=== PATIENT | female | born 1945 | race Caucasian/White ===

== ENCOUNTER → 2017-01-17 | Outpatient (CLI) | payer MEDICARE ==
--- NOTE | 2017-01-18 12:54 | MM ---
Reason for exam: screening (asymptomatic). Last mammogram was performed 3 years and 1 month ago. History: Patient is postmenopausal. Physical Findings: A clinical breast exam by your physician is recommended on an annual basis and results should be correlated with mammographic findings. MG Screening Mammo w CAD Bilateral CC and MLO view(s) were taken. XCCL view(s) were taken of the left breast. Prior study comparison: December 13, 2013, mammogram, performed at [facility]. April 27, 2011, mammogram, performed at [facility]. March 26, 2010, mammogram, performed at [facility]. There are scattered fibroglandular densities. Finding: There are typically benign round calcifications in both breasts. There is no discrete abnormality. ASSESSMENT: Benign, BI-RAD 2 RECOMMENDATION: Routine screening mammogram of both breasts in 1 year.
== END | disposition home or self-care (01) ==
LOC: RADMAMWWP 13:32
PROVIDERS: ATTEND Family Medicine
DX: Z12.31 Encounter for screening mammogram for malignant neoplasm of breast (principal)

== ENCOUNTER → 2017-02-07 | Outpatient (CLI) | payer MEDICARE ==
--- NOTE | 2017-02-07 14:45 | US ---
EXAMINATION TYPE: US kidneys/renal and bladder DATE OF EXAM: 02/07/2017 COMPARISON: CT CLINICAL HISTORY: N28.9 Renal Impairment. EXAM MEASUREMENTS: Right Kidney: 10.8 x 5.2 x 5.1 cm Left Kidney: 10.5 x 5.5 x 5.0 cm Right Kidney: Multiple cysts, largest measuring 3.7 x 2.7 x 3.3cm Left Kidney: Multiple cysts, largest measuring 2.0 x 2.1 x 2.2cm Bladder: wnl Right jet seen, left not visualized. There is no evidence for hydronephrosis at this point in time. No nephrolithiasis is seen. Multiple simple appearing cysts are noted bilaterally. No solid masses seen. The urinary bladder is anechoic. Bilateral ureteral jets are seen. IMPRESSION: Multiple simple appearing cysts are noted bilaterally.
== END | disposition home or self-care (01) ==
LOC: RADUSWWP 14:02
PROVIDERS: ATTEND Family Medicine
DX: N28.1 Cyst of kidney, acquired (principal)
CPT/HCPCS: 76770

== ENCOUNTER 2018-05-12 20:48 | Observation (INO) | payer MEDICARE ==
[2018-05-12] MEDS ORDERED: ONDANSETRON 4 MG/2 ML VIAL IVP STA ×2 (21:19→21:52)
[2018-05-12] MEDS ORDERED: SODIUM CHLORIDE 0.9% 500 ML 500 ML IV STA (21:52)
--- NOTE | 2018-05-12 21:56 | ED ---
Nausea/Vomiting/Diarrhea HPI - General Chief complaint: Nausea/Vomiting/Diarrhea Stated complaint: Nausea,Vomiting, Diarrhea Time Seen by Provider: 05/12/18 21:18 Source: patient Mode of arrival: EMS Limitations: no limitations - History of Present Illness Initial comments: This patient is a 72-year-old woman who presents to be evaluated for nausea vomiting and diarrhea. Patient states she was in her usual state of health until approximately 3 PM and she started feeling nauseated and a bit after this she began having vomiting. She believes she has had probably over 10 episodes of vomiting. she also then started having watery bowel movements and believes she has had probably Tylenol as well. She has not noted any blood. The patient was not having any abdominal pains. She has felt chills but no fever. She denies other symptoms. She states she has had this in number times in the past was told she had a stomach flu. MD complaint: nausea, vomiting, diarrhea Onset/Timin -: hour(s) Description of Vomiting: watery Description of Diarrhea: water Associated Abdominal Pain: No Improves with: none Worsens with: none Associated Symptoms: denies other symptoms - Related Data Previous Rx's Medication Instructions Recorded Diazepam [Valium] 5 mg PO TID #10 tab 08/12/14 Meclizine [Antivert] 25 mg PO BID #10 tab 08/12/14 Allergies Allergy/AdvReac Type Severity Reaction Status Date / Time tetracycline Allergy Unknown Verified 08/12/14 01:13 Review of Systems ROS Statement: Those systems with pertinent positive or pertinent negative responses have been documented in the HPI. ROS Other: All systems not noted in ROS Statement are negative. Constitutional: Reports: chills. Denies: fever Respiratory: Denies: cough, dyspnea Cardiovascular: Denies: chest pain, palpitations, syncope Gastrointestinal: Reports: nausea, vomiting, diarrhea. Denies: abdominal pain, constipation, hematemesis, melena, hematochezia Genitourinary: Denies: dysuria Musculoskeletal: Denies: back pain Skin: Denies: rash Neurological: Denies: headache, weakness, numbness Psychiatric: Reports: anxiety Past Medical History Past Medical History: Hypertension, Thyroid Disorder History of Any Multi-Drug Resistant Organisms: None Reported Past Surgical History: Hysterectomy Past Psychological History: Depression Smoking Status: Current every day smoker Past Alcohol Use History: None Reported Past Drug Use History: None Reported General Exam Limitations: no limitations General appearance: alert, in no apparent distress, obese Head exam: Present: atraumatic, normocephalic Eye exam: Present: normal appearance. Absent: scleral icterus, conjunctival injection ENT exam: Present: normal oropharynx Neck exam: Present: normal inspection Respiratory exam: Present: normal lung sounds bilaterally. Absent: respiratory distress, wheezes, rales, rhonchi, stridor Cardiovascular Exam: Present: regular rate, normal rhythm, normal heart sounds. Absent: systolic murmur, diastolic murmur, rubs, gallop GI/Abdominal exam: Present: soft. Absent: distended, tenderness, guarding, rebound, rigid, mass Extremities exam: Present: normal inspection, normal capillary refill. Absent: pedal edema, calf tenderness Back exam: Present: normal inspection. Absent: CVA tenderness (R), CVA tenderness (L) Neurological exam: Present: alert Skin exam: Present: warm, dry, intact, normal color. Absent: rash Course Vital Signs 05/12/18 05/12/18 05/12/18 20:54 20:55 21:00 Temperature 98.6 F Pulse Rate 98 Respiratory 18 Rate Blood Pressure 125/91 125/91 O2 Sat by Pulse 96 99 Oximetry 05/12/18 05/12/18 05/12/18 21:10 21:30 21:40 Temperature Pulse Rate 110 H Respiratory Rate Blood Pressure 130/94 130/87 141/101 O2 Sat by Pulse 96 Oximetry 05/12/18 05/12/18 05/12/18 22:00 22:10 22:20 Temperature Pulse Rate 106 H 104 H 104 H Respiratory Rate Blood Pressure 120/74 125/70 90/51 O2 Sat by Pulse 100 97 96 Oximetry 05/12/18 05/12/18 05/12/18 22:40 22:50 23:10 Temperature Pulse Rate 118 H 112 H 103 H Respiratory 15 Rate Blood Pressure 100/87 111/94 137/73 O2 Sat by Pulse Oximetry Medical Decision Making - Medical Decision Making On reevaluation, the patient again has no abdominal tenderness whatsoever. - Lab Data Result diagrams: 05/12/18 22:20 05/12/18 22:20 Lab Results 05/12/18 05/12/18 05/12/18 Range/Units 22:20 22:20 22:30 WBC 17.2 H (3.8-10.6) k/uL RBC 5.35 (3.80-5.40) m/uL Hgb 16.4 H (11.4-16.0) gm/dL Hct 52.7 H (34.0-46.0) % MCV 98.4 (80.0-100.0) fL MCH 30.7 (25.0-35.0) pg MCHC 31.2 (31.0-37.0) g/dL RDW 13.4 (11.5-15.5) % Plt Count 394 (150-450) k/uL Neutrophils % (Manual) 78 % Band Neutrophils % 12 % Lymphocytes % (Manual) 8 % Monocytes % (Manual) 3 % Neutrophils # (Manual) 15.40 H (1.3-7.7) k/uL Lymphocytes # (Manual) 1.38 (1.0-4.8) k/uL Monocytes # (Manual) 0.52 (0-1.0) k/uL Nucleated RBCs 0 (0-0) /100 WBC Manual Slide Review Performed Sodium 141 (137-145) mmol/L Potassium 4.3 (3.5-5.1) mmol/L Chloride 112 H (98-107) mmol/L Carbon Dioxide 18 L (22-30) mmol/L Anion Gap 11 mmol/L BUN 32 H (7-17) mg/dL Creatinine 1.49 H (0.52-1.04) mg/dL Est GFR (CKD-EPI)AfAm 41 (>60 ml/min/1.73 sqM) Est GFR (CKD-EPI)NonAf 35 (>60 ml/min/1.73 sqM) Glucose 176 H (74-99) mg/dL Calcium 10.1 (8.4-10.2) mg/dL Total Bilirubin 0.5 (0.2-1.3) mg/dL AST 46 H (14-36) U/L ALT 37 (9-52) U/L Alkaline Phosphatase 42 (38-126) U/L Total Protein 6.7 (6.3-8.2) g/dL Albumin 4.1 (3.5-5.0) g/dL Amylase 73 (30-110) U/L Lipase 139 (23-300) U/L C. difficile (EIA) Intrp Negative (Negative) Disposition Clinical Impression: Intractable vomiting with nausea Disposition: ADMITTED IP TO THIS HOSP Condition: Fair Is patient prescribed a controlled substance at d/c from ED?: No Referrals: Joe Solorzano DO [Primary Care Provider] - 1-2 days
[2018-05-12 22:28] LABS: HCT 52.7 % (34.0-46.0); HGB 16.4 gm/dL (11.4-16.0); MCH 30.7 pg (25.0-35.0); MCHC 31.2 g/dL (31.0-37.0); MCV 98.4 fL (80.0-100.0); Mean Platelet Volume 7.4; Platelet Count 394 k/uL (150-450); RBC 5.35 m/uL (3.80-5.40); RDW 13.4 % (11.5-15.5); WBC 17.2 k/uL (3.8-10.6)
[2018-05-12 22:47] LABS: Albumin 4.1 g/dL (3.5-5.0); Band Neutrophils % 12 %; Calcium 10.1 mg/dL (8.4-10.2); Lymphocytes # (M) 1.38 k/uL (1.0-4.8); Monocytes # (M) 0.52 k/uL (0-1.0); Neutrophils % (M) 78 %; Nucleated Red Blood Cells 0 /100 WBC (0-0); Potassium 4.3 mmol/L (3.5-5.1); Total Bilirubin 0.5 mg/dL (0.2-1.3); Total Cells Counted 200; Total Protein 6.7 g/dL (6.3-8.2)
[2018-05-12] MEDS ORDERED: PROMETHAZINE INJ 25 MG in SODIUM CHLORIDE 0.9% 50 ML IVPB STA (23:08)
[2018-05-13] MEDS ORDERED: NALOXONE 0.4 MG/ML 1 ML VIAL IV PRN (00:37)
[2018-05-13] MEDS ORDERED: ONDANSETRON 4 MG/2 ML VIAL IVP PRN (00:37)
[2018-05-13] MEDS ORDERED: SODIUM CHLORIDE 0.9% 500 ML 500 ML IV ONE (00:52)
[2018-05-13] MEDS: SODIUM CHLORIDE 0.9% 1,000 ML IV SCH ×2 (01:45→08:38)
[2018-05-13] MEDS: HEPARIN SOD,PORK IN 0.45% NACL 25,000 UNIT in 0.45% NACL 1 250ML.BAG IV SCH ×3 (03:49→22:40)
[2018-05-13] MEDS: FAMOTIDINE 20 MG TAB PO SCH ×2 (08:37→21:23)
[2018-05-13] MEDS ORDERED: MECLIZINE 25 MG TAB PO SCH (09:00)
--- NOTE | 2018-05-13 10:36 | CONS ---
CONSULTATION This is a 72-year-old female. She has been admitted with history of diarrhea, vomiting and she has chills but no fever. During the stay in the hospital, noticed some discomfort in the left leg. The patient was started on heparin. MEDICAL HISTORY: History of hypertension, thyroid disorder. No history of diabetes. SOCIAL HISTORY: Patient has a long-standing history of smoking. Quit smoking about a few months ago. The patient has history of depression. PHYSICAL EXAMINATION: Patient was seen in her room. She was lying comfortably in bed. NECK: Supple. No bruit appreciated. CHEST: Clear to auscultation. ABDOMEN: Soft. No peritoneal signs noted. Patient has liquid diarrhea. Vascular examination: Brachial and radial pulses are present. Femorals are 1+ bilateral. Patient has a posterior tibial dorsalis pedis by the Doppler. No ischemic ulcer noted. IMPRESSION: Chronic vascular disease. At this point, patient is on heparin and she has a bilateral Doppler signal. PLAN: Patient will be managed for nausea and vomiting. At this point, no role of surgical intervention. We will continue with heparin, then patient will need a workup for vascular evaluation which is then chronic. Follow with you. Thank you very much for the consultation. MMODL / IJN: [id number] /
[2018-05-13] MEDS ORDERED: ALPRAZolam 0.5 MG TAB PO PRN (11:33)
[2018-05-13] MEDS ORDERED: NON-FORMULARY DRUG (Vitamin B Complex [Vitamin B Complex] 1 CAP) PO SCH (11:45)
[2018-05-13] MEDS ORDERED: NON-FORMULARY DRUG (Calcium/Magnesium/Zinc [Calcium-Magnesium-Zinc Tablet] 1 TAB) PO SCH (11:45)
[2018-05-13] MEDS: LEVOTHYROXINE 100 MCG TAB PO SCH (13:03)
[2018-05-13] MEDS: amLODIPine 5 MG TAB PO SCH (13:04)
[2018-05-13] MEDS: FENOFIBRATE 160 MG TAB PO SCH (13:04)
[2018-05-13] MEDS: LISINOPRIL 20 MG TAB PO SCH (13:04)
[2018-05-13] MEDS ORDERED: MELATONIN 3 MG TABLET PO PRN (16:37)
[2018-05-13] MEDS ORDERED: ACETAMINOPHEN TAB 325 MG TAB PO PRN (16:37)
[2018-05-13] MEDS ORDERED: CALCIUM CARBONATE 500 MG CHEWABLE PO PRN (16:37)
[2018-05-13] MEDS: buPROPion XL 150 MG TAB.ER.24H PO SCH (16:48)
[2018-05-13] MEDS: LOPERAMIDE 2 MG CAP PO SCH ×2 (16:48→21:23)
[2018-05-13] MEDS: CIPROFLOXACIN HCL 250 MG TAB PO SCH ×2 (16:55→21:23)
[2018-05-13] MEDS: LACTATED RINGERS 1,000 ML IV SCH ×2 (16:56→22:41)
[2018-05-13] MEDS: SODIUM BICARBONATE TAB 650 MG TAB PO SCH ×2 (16:56→21:23)
[2018-05-13] MEDS: metroNIDAZOLE 500 MG TAB PO SCH ×2 (16:56→21:23)
--- NOTE | 2018-05-13 21:15 | HP ---
HISTORY AND PHYSICAL DATE OF ADMISSION: 05/13/2018 DATE OF SERVICE: 05/13/2018 PRESENT COMPLAINT: Nausea, vomiting diarrhea. HISTORY OF PRESENTING COMPLAINT: Pleasant 72-year-old patient of Dr. Solorzano. Chronic stable medical conditions include hypertension, hypothyroid, depression, anxiety, hypertriglyceridemia. The patient is in the process of moving in with her son. The patient went in for dinner the day before to [employer] and next day went out for breakfast and started off with multiple episodes of nausea, vomiting, diarrhea, and perspiring, drenched and decided to come in today. When I saw this patient this afternoon the patient was still having diarrhea and had about 10 or 12 bouts of diarrhea, very watery, flaky, some abdominal discomfort. The patient has had some chills, but no obvious fever. Admitted for the same. Was put on IV fluids. Earlier today patient's left like became cold. I put the patient on IV heparin and consulted Dr. Donaldson from vascular surgery. The patient does complain of left leg cramping when she exerts herself. Patient was a smoker up to 3 months ago. REVIEW OF SYSTEMS: CONSTITUTIONAL: Chills, weak, tired. HEENT: None. RESPIRATORY: None. CARDIOVASCULAR: None. GASTROINTESTINAL: As above. GENITOURINARY: None. MUSCULOSKELETAL: Arthritic pain in the joints. DERMATOLOGICAL, HEMATOLOGIC, LYMPHATICS: none. PSYCHIATRY: None. NEUROLOGICAL: None. PAST MEDICAL HISTORY: Hypertension, hypothyroid, hypertriglyceridemia, depression, anxiety, leg cramps, osteoarthritis. PAST SURGICAL HISTORY: Hysterectomy. SOCIAL HISTORY: Patient smoking a pack a day up until 3 months ago for a long time. No alcohol. Patient is a . FAMILY HISTORY: Coronary artery disease. HOME MEDICATIONS: 1. Vitamin B complex 1 capsule p.o. daily. 2. Zestril 20 mg p.o. daily. 3. Tricor 160 mg a day. 4. Calcium, magnesium, zinc tablet 1 tab daily. 5. Wellbutrin XL 150 mg a day. 6. Amlodipine 5 mg a day. 7. Vitamin D3 2000 units p.o. daily. 8. Xanax 0.5 p.o. q.h.s. p.r.n. 9. Synthroid 100 mcg p.o. daily. ALLERGIES: TETRACYCLINE AZITHROMYCIN. PHYSICAL EXAMINATION: Vital signs on presentation: Temperature 98.6, pulse 106, respirations 16, blood pressure 120/74, Pulse ox 100% on room air. GENERAL APPEARANCE: Average build, BMI 35.5, lying in bed, tired-appearing. EYES: Pupils equal. Conjunctivae normal. HEENT: External appearance of nose and ears normal. Oral cavity normal. NECK: JVD not raised. Mass not palpable. Respiratory effort normal. Lungs are clear. CARDIOVASCULAR: First and second sounds normal. No edema. ABDOMEN: Soft, minimal tenderness. Liver and spleen not palpable. LYMPHATICS: No lymph node palpable in neck or axilla. PSYCHIATRY: Alert and oriented x3. Mood and affect normal. NEUROLOGICAL: Pupils equal. Cranial nerves grossly intact. Power and sensation grossly intact. EXTREMITIES: Left foot is warm. Decreased dorsalis pedis. INVESTIGATIONS: White count 17.2, hemoglobin 16.4 potassium 4.3, bicarb 18, BUN 32, creatinine 1.49. C diff is negative. ASSESSMENT: 1. Acute gastroenteritis, food poisoning, possibly bacterial. The patient had chills, elevated white count and profuse diarrhea, nausea, vomiting. Hence, we will empirically treat with antibacterial. 2. Acute renal failure. Patient's creatinine is 1.49. The patient has underlying chronic kidney disease. The patient's creatinine was 1.25 back in April of 2016. 3. Essential hypertension. 4. Hypothyroid. 5. Depression, not otherwise specified. 6. Intermittent claudication. 7. Hypertriglyceridemia. 8. Acute metabolic acidosis, could be from diarrhea. 9. Rule out left leg acute thrombosis. PLAN: Patient is put on IV heparin. Also put on IV liquids. IV fluids been changed to lactated Ringer's. We will also add bicarbonate to the same. Repeat electrolytes in the morning. Will empirically put the patient on ciprofloxacin and Flagyl. Consultation with Dr. Donaldson. from vascular surgery is done. Care was discussed in detail with the patient and son at the bedside. Questions were answered. Lovenox for DVT prophylaxis. MMODL / IJN: [id number] /
[2018-05-14] MEDS: LEVOTHYROXINE 100 MCG TAB PO SCH (06:14)
[2018-05-14 09:17] LABS: Basophils # (A) 0.1 k/uL (0-0.2); Basophils % (A) 1 %; Eosinophils # (A) 0.2 k/uL (0-0.7); Eosinophils % (A) 2 %; HCT 38.4 % (34.0-46.0); Lymphocytes # (A) 2.1 k/uL (1.0-4.8); Lymphocytes % (A) 22 %; MCH 31.4 pg (25.0-35.0); MCHC 31.7 g/dL (31.0-37.0); MCV 98.9 fL (80.0-100.0); Mean Platelet Volume 8.2; Monocytes # (A) 0.5 k/uL (0-1.0); Monocytes % (A) 5 %; Neutrophils # (A) 6.7 k/uL (1.3-7.7); Neutrophils % (A) 69 %; Platelet Count 275 k/uL (150-450); RBC 3.88 m/uL (3.80-5.40); RDW 13.5 % (11.5-15.5); WBC 9.8 k/uL (3.8-10.6)
[2018-05-14 09:21] LABS: HGB 12.2 gm/dL (11.4-16.0)
[2018-05-14 09:25] LABS: Calcium 8.6 mg/dL (8.4-10.2); Potassium 3.8 mmol/L (3.5-5.1)
[2018-05-14] MEDS ORDERED: HEPARIN SODIUM,PORCINE 5,000 UNIT/ML 1 ML VIAL IV PRN (09:25)
[2018-05-14] MEDS: SODIUM BICARBONATE TAB 650 MG TAB PO SCH ×3 (09:42→21:25)
[2018-05-14] MEDS: buPROPion XL 150 MG TAB.ER.24H PO SCH (09:43)
[2018-05-14] MEDS: metroNIDAZOLE 500 MG TAB PO SCH ×3 (09:43→21:25)
[2018-05-14] MEDS: FENOFIBRATE 160 MG TAB PO SCH (09:43)
[2018-05-14] MEDS: amLODIPine 5 MG TAB PO SCH (09:43)
[2018-05-14] MEDS: LISINOPRIL 20 MG TAB PO SCH (09:43)
[2018-05-14] MEDS: CIPROFLOXACIN HCL 250 MG TAB PO SCH ×2 (09:43→21:26)
[2018-05-14] MEDS: FAMOTIDINE 20 MG TAB PO SCH ×2 (09:43→21:26)
[2018-05-14] MEDS: LOPERAMIDE 2 MG CAP PO SCH (09:43)
--- NOTE | 2018-05-14 10:16 | PN ---
PROGRESS NOTE This is a 72-year-old pleasant female came with history of nausea, vomiting and diarrhea and the patient noted some discomfort in left lower extremity. The patient was on heparin, consulted for vascular evaluation. The patient has history of smoking in the past. No history of diabetes. The patient is doing well today. She still has diarrhea. Posterior tibial dorsalis pedis bilaterally is by the Doppler, no evidence of any ischemic changes. Most likely patient has a chronic peripheral vascular disease. PLAN: Plan is discussed. Patient goes home, then we will follow in my office in a week to chronic vascular issues. At this point the patient is stable from a vascular point of view. MMODL / IJN: [id number] /
[2018-05-14 15:49] VITALS: RESP 16
[2018-05-14] MEDS: LACTATED RINGERS 1,000 ML IV SCH (17:48)
[2018-05-14] MEDS: DIPHENOX-ATROP 2.5-0.025 MG 1 EACH TAB PO SCH ×2 (17:48→21:25)
[2018-05-14] MEDS: HEPARIN SOD,PORK IN 0.45% NACL 25,000 UNIT in 0.45% NACL 1 250ML.BAG IV SCH (19:56)
[2018-05-15] MEDS: LACTATED RINGERS 1,000 ML IV SCH (03:29)
[2018-05-15] MEDS: LEVOTHYROXINE 100 MCG TAB PO SCH (05:45)
--- NOTE | 2018-05-15 07:39 | PN ---
PROGRESS NOTE DATE OF SERVICE: 05/14/2018 PRESENTING COMPLAINT: Diarrhea. INTERVAL HISTORY: This patient with acute food poisoning, was put on antimotility agents. Diarrhea still present, though a bit better. Patient did tolerate some diet. Also on IV heparin that was now discontinued because of left leg some vascular compromise. No acute embolism. REVIEW OF SYSTEMS: Done for constitutional, cardiovascular, GI, pulmonary and findings above. CURRENT MEDICATIONS: Reviewed that include lactated Ringer's, IV heparin, Cipro, Flagyl. PHYSICAL EXAMINATION: Temperature 98.1, pulse 82, respirations 16, blood pressure 140/79, pulse ox 95% on room air. GENERAL APPEARANCE: Sitting up, comfortable, looking better. EYES: Pupils equal. Conjunctivae normal. NECK: JVD not raised. Mass not palpable. Respiratory effort normal. LUNGS: Clear. CARDIOVASCULAR: First and second sounds. No edema. ABDOMEN: Soft, nontender. Liver and spleen not palpable. PSYCHIATRY: Alert and oriented x3. Mood and affect normal. EXTREMITIES: Warm. INVESTIGATIONS: White count 9.8, hemoglobin 12.2, potassium 3.8, BUN 20, creatinine 1.13. ASSESSMENT: 1. Acute gastroenteritis, food poisoning probably, possibly bacterial, slow to respond. 2. Acute renal failure, prerenal from severe diarrhea. 3. Chronic kidney disease stage 3, probably from nephrosclerosis. 4. Essential hypertension. 5. Hypothyroid. 6. Depression, not otherwise specified. 7. Intermittent claudication. 8. Hypertriglyceridemia. 9. Acute metabolic acidosis from diarrhea. 10.Peripheral artery disease. PLAN: As discussed with Dr. Donaldson, IV heparin will be discontinued. We will change patient's Imodium to Lomotil. Continue with IV fluids. Check electrolytes in the morning. Advance to full liquid diet if tolerated. Will change to a soft bland in the morning. MMODL / IJN: [id number] /
[2018-05-15 08:46] LABS: Calcium 8.8 mg/dL (8.4-10.2); Potassium 3.6 mmol/L (3.5-5.1)
[2018-05-15] MEDS: SODIUM BICARBONATE TAB 650 MG TAB PO SCH ×2 (08:52→16:36)
[2018-05-15] MEDS: FENOFIBRATE 160 MG TAB PO SCH (08:52)
[2018-05-15] MEDS: CIPROFLOXACIN HCL 250 MG TAB PO SCH (08:52)
[2018-05-15] MEDS: metroNIDAZOLE 500 MG TAB PO SCH ×2 (08:52→16:35)
[2018-05-15] MEDS: buPROPion XL 150 MG TAB.ER.24H PO SCH (08:52)
[2018-05-15] MEDS: DIPHENOX-ATROP 2.5-0.025 MG 1 EACH TAB PO SCH ×2 (08:52→16:36)
[2018-05-15] MEDS: LISINOPRIL 20 MG TAB PO SCH (08:52)
[2018-05-15] MEDS: FAMOTIDINE 20 MG TAB PO SCH (08:53)
[2018-05-15] MEDS: amLODIPine 5 MG TAB PO SCH (08:56)
[2018-05-15] MEDS ORDERED: PSYLLIUM HUSK 100% 6 GM PACKET PO SCH (09:00)
[2018-05-15] MEDS ORDERED: ASPIRIN 81 MG PO SCH (09:00)
[2018-05-15 15:06] VITALS: BP 167/77; PULSE 73; TEMP 97.5
--- NOTE | 2018-05-16 09:27 | DS ---
DISCHARGE SUMMARY DATE OF ADMISSION: 05/13/2018 DATE OF DISCHARGE: 05/15/2018 FINAL DIAGNOSES: 1. Acute gastritis/food poisoning probably bacterial. 2. Acute renal failure prerenal from severe diarrhea, POA. 3. Essential hypertension. 4. Hypothyroid. 5. Depression, not otherwise specified. 6. Intermittent claudication. 7. Hypertriglyceridemia. 8. Acute metabolic acidosis from diarrhea. 9. Peripheral artery disease. 10.Chronic kidney disease stage II from nephrosclerosis. HOSPITAL COURSE: This patient had eaten out, presented with severe nausea, vomiting, diarrhea, also had chills. Patient was in acute renal failure. Creatinine was up to 1.49, did come down to 1.08 before discharge. Patient also left leg back became cold, did respond well to IV heparin. Seen by Dr. Donaldson. Will see the patient as an outpatient. Patient is put on aspirin and Lipitor for the same. By today, patient is doing much better. Empirically put on Flagyl and Levaquin to complete the course on now tolerating a soft diet. PHYSICAL EXAMINATION: Afebrile, pulse 73, respiration 16, blood pressure 167/77, pulse ox 96% on room air. LUNGS: Clear. CARDIOVASCULAR: First and second sounds normal. ABDOMEN: Soft, nontender. Left leg is warm. INVESTIGATIONS: BUN 10, creatinine 1.08. CONSULTATION: Dr. Donaldson from Vascular Surgery. DISCHARGE MEDICATIONS: 1. Xanax 0.5 p.o. q.h.s. p.r.n. 2. Vitamin D3 two thousand units p.o. daily. 3. Tricor 160 mg a day. 4. Synthroid 100 mcg a day. 5. Zestril 20 mg a day. 6. Vitamin B complex. 7. Amlodipine 5 mg a day. 8. Wellbutrin XL 150 mg a day. 9. Aspirin 81 mg b.i.d. 10.Lipitor 40 mg q.h.s. 11.Cipro 250 mg b.i.d., 4 tablets. 12.Imodium 82 mg q.8h p.r.n. for diarrhea. 13.Flagyl 500 mg p.o. t.i.d., 6 tablets. Discussion and discharge planning more than 35 minutes. FOLLOWUP: 1. Follow up with Dr. Solorzano in 3 days. 2. Follow up with Dr. Bang Donaldson in 1 week. DIET: Soft, bland. MMODL / IJN: [id number] /
== END 2018-05-15 18:44 | disposition home or self-care (01) ==
LOC: EC 20:48 → 4SSUR 05-13 00:47
PROVIDERS: ADMIT Hospitalist; ATTEND Hospitalist
DX: K29.00 Acute gastritis without bleeding (principal); N17.9 Acute kidney failure, unspecified; I73.9 Peripheral vascular disease, unspecified; F32.9 Major depressive disorder, single episode, unspecified; E03.9 Hypothyroidism, unspecified; E87.2 Acidosis; E78.1 Pure hyperglyceridemia; F41.9 Anxiety disorder, unspecified; I12.9 Hypertensive chronic kidney disease with stage 1 through stage 4 chronic kidney disease, or unspecified chronic kidney disease; N18.2 Chronic kidney disease, stage 2 (mild); Z90.710 Acquired absence of both cervix and uterus; Z79.890 Hormone replacement therapy; Z79.899 Other long term (current) drug therapy; Z87.891 Personal history of nicotine dependence; Z82.49 Family history of ischemic heart disease and other diseases of the circulatory system; Z88.1 Allergy status to other antibiotic agents
CPT/HCPCS: 96376; 96361; 96365; 96366 ×2; 96375; 99285; 36415; 80053; 80048 ×2; 82150; 83690; 85025 ×2; 85610; 85730 ×3; 87324; G0378 ×3; J1644 ×3; J2550; J2405

== ENCOUNTER 2021-10-12 16:44 | Inpatient (IN) | payer MEDICARE ==
[2021-10-12] MEDS ORDERED: ONDANSETRON 4 MG/2 ML VIAL IVP STA (18:57)
[2021-10-12] MEDS ORDERED: HYDROmorphone 0.5 MG/0.5 ML SYRINGE IVP STA (18:57)
--- NOTE | 2021-10-12 19:02 | ED ---
Abdominal Pain HPI - General Source: patient, family, RN notes reviewed, old records reviewed Mode of arrival: wheelchair Limitations: no limitations - History of Present Illness MD Complaint: abdominal pain Radiation: back (lower) Severity scale (1-10): 7 Consistency: constant <Keegan Cheng - Last Filed: 10/12/21 18:59> - General Source: patient, family, RN notes reviewed Limitations: no limitations <Daniel Vásquez - Last Filed: 10/12/21 21:58> - General Chief Complaint: Abdominal Pain Stated Complaint: Abd Pain Time Seen by Provider: 10/12/21 18:50 - History of Present Illness Initial Comments: 71-year-old female presents to the emergency room via wheelchair and family members. Patient complaining of abdominal pain that radiates into her lower back. Patient states that she has had a history of lower back pain and this feels similar. She does state that she has some nausea. She states she feels that she has to have a bowel movement but nothing comes out. She did have a bowel movement today that seemed normal however. She states that she has pain 7 out of 10 family states that she seems to be getting worse with the abdominal pain. No fevers. She is a previous smoker. Patient evaluated in the triage tor[facility]. (Keegan Cheng) Patient is a pleasant 76-year-old female presenting to the emergency Department with complaints of abdominal discomfort. Onset of symptoms was this morning. Symptoms have slowly progressed since that time. Patient has nausea that is bothersome however no vomiting. patient diarrhea. Discomfort is mild to moderate. Discomfort is left lower quadrant. Patient had mild discomfort left lower back once or twice previously however not since that time. Patient does have history of similar symptoms previously associated with diverticulitis. Patient also has history of pancreatitis however that does not feel similar to this. (Daniel Vásquez) - Related Data Home Medications Medication Instructions Recorded Confirmed Fenofibrate 160 mg PO HS 05/13/18 10/12/21 Levothyroxine Sodium [Synthroid] 100 mcg PO DAILY 05/13/18 10/12/21 Vitamin B Complex 1 cap PO DAILY 05/13/18 10/12/21 amLODIPine BESYLATE 5 mg PO BID 05/13/18 10/12/21 buPROPion XL [Wellbutrin XL] 150 mg PO DAILY 05/13/18 10/12/21 ALPRAZolam [Xanax] 0.125 mg PO DAILY PRN 10/12/21 10/12/21 ALPRAZolam [Xanax] 0.25 mg PO HS 10/12/21 10/12/21 Acetaminophen [Tylenol] 500 mg PO HS 10/12/21 10/12/21 Cholecalciferol [Vitamin D3 (25 50 mcg PO HS 10/12/21 10/12/21 Mcg = 1000 Iu)] Losartan Potassium 100 mg PO DAILY 10/12/21 10/12/21 Magnesium Chloride [Mag64] 64 mg PO DAILY 10/12/21 10/12/21 Metoprolol Succinate [Toprol XL] 50 mg PO DAILY 10/12/21 10/12/21 [place]-3 Fatty Acids/Fish Oil [Fish 1 cap PO HS 10/12/21 10/12/21 Oil 1,000 mg Softgel] Allergies Allergy/AdvReac Type Severity Reaction Status Date / Time tetracycline Allergy Unknown Verified 10/12/21 21:51 azithromycin AdvReac Nausea & Verified 10/12/21 21:51 Vomiting Review of Systems ROS Other: All systems not noted in ROS Statement are negative. <Keegan Cheng - Last Filed: 10/12/21 18:59> ROS Other: All systems not noted in ROS Statement are negative. Constitutional: Denies: fever, chills Eyes: Denies: eye pain ENT: Denies: ear pain Respiratory: Denies: cough, dyspnea Cardiovascular: Denies: chest pain Endocrine: Denies: fatigue Gastrointestinal: Reports: as per HPI, abdominal pain, nausea. Denies: vomiting, diarrhea Genitourinary: Denies: urgency, dysuria, hematuria Musculoskeletal: Reports: as per HPI Skin: Denies: rash Neurological: Denies: weakness <Daniel Vásquez - Last Filed: 10/12/21 21:58> ROS Statement: Those systems with pertinent positive or pertinent negative responses have been documented in the HPI. Past Medical History Past Medical History: Hypertension, Thyroid Disorder History of Any Multi-Drug Resistant Organisms: None Reported Past Surgical History: Hysterectomy Past Anesthesia/Blood Transfusion Reactions: No Reported Reaction Past Psychological History: Depression Past Alcohol Use History: None Reported Past Drug Use History: None Reported - Past Family History Father Family Medical History: Coronary Artery Disease (CAD) <Keegan Cheng - Last Filed: 10/12/21 18:59> General Exam Limitations: no limitations <Keegan Cheng - Last Filed: 10/12/21 18:59> Limitations: no limitations General appearance: alert, in no apparent distress Head exam: Present: normocephalic Eye exam: Present: normal appearance Neck exam: Present: normal inspection Respiratory exam: Present: normal lung sounds bilaterally Cardiovascular Exam: Present: regular rate, normal rhythm Expanded Peripheral pulses: 2+: Dorsalis Pedis (R), Dorsalis Pedis (L) GI/Abdominal exam: Present: soft, tenderness (Mild tenderness left lower quadrant), normal bowel sounds. Absent: distended, guarding, rebound, rigid, pulsatile mass Extremities exam: Present: normal inspection Back exam: Absent: CVA tenderness (L) Neurological exam: Present: alert Psychiatric exam: Present: normal affect, normal mood Skin exam: Present: normal color <Daniel Vásquez - Last Filed: 10/12/21 21:58> Course <Daniel Vásquez - Last Filed: 10/12/21 21:58> Vital Signs 10/12/21 10/12/21 10/12/21 18:52 19:54 20:58 Temperature 97.8 F Pulse Rate 89 77 80 Respiratory 16 24 18 Rate Blood Pressure 165/67 151/69 165/79 O2 Sat by Pulse 94 L 95 93 L Oximetry - Reevaluation(s) Reevaluation #1: 10/12/21 19:45 EKG shows sinus rhythm with rate of 81. SD 157. QRS 94. QT 364. QTC 41. Normal axis. Normal QRS. Nonspecific ST-T. 10/12/21 21:34 Patient does meet criteria for severe sepsis at 2134. Lactic acid has been ordered. Blood culture and IV antibiotics will be ordered. (Daniel Vásquez) Medical Decision Making - Lab Data Result diagrams: 10/12/21 19:15 10/12/21 19:15 - Radiology Data Radiology results: report reviewed (Computed tomography scan of abdomen and pelvis does not reveal acute abnormality) <Daniel Vásquez - Last Filed: 10/12/21 21:58> - Medical Decision Making Patient reevaluated. Patient and family updated. Case discussed in detail with practitioner Shantelle Ku, who will admit covered with Dr. Dick. (Daniel Vásquez) - Lab Data Lab Results 05/10/12/21 10/12/21 Range/Units 19:15 19:15 19:15 WBC 16.1 H (3.8-10.6) k/uL RBC 4.40 (3.80-5.40) m/uL Hgb 13.8 (11.4-16.0) gm/dL Hct 42.2 (34.0-46.0) % MCV 95.9 (80.0-100.0) fL MCH 31.4 (25.0-35.0) pg MCHC 32.7 (31.0-37.0) g/dL RDW 13.4 (11.5-15.5) % Plt Count 381 (150-450) k/uL MPV 8.3 Neutrophils % Not Reportable Neutrophils % (Manual) 77 % Band Neuts % (Manual) 16 % Lymphocytes % Not Reportable Lymphocytes % (Manual) 6 % Monocytes % Not Reportable Monocytes % (Manual) 1 % Eosinophils % Not Reportable Basophils % Not Reportable Metamyelocytes % 1 % Neutrophils # Not Reportable Neutrophils # (Manual) 14.90 H (1.3-7.7) k/uL Lymphocytes # Not Reportable Lymphocytes # (Manual) 0.97 L (1.0-4.8) k/uL Monocytes # Not Reportable Monocytes # (Manual) 0.16 (0-1.0) k/uL Eosinophils # Not Reportable Basophils # Not Reportable Metamyelocytes # (Man) 0.16 H (0) k/uL Nucleated RBCs 0 (0-0) /100 WBC Manual Slide Review Performed Toxic Granulation Present Polychromasia Present PT 10.6 (9.0-12.0) sec INR 1.0 (<1.2) APTT 22.5 (22.0-30.0) sec Sodium 131 L (137-145) mmol/L Potassium 5.0 (3.5-5.1) mmol/L Chloride 107 (98-107) mmol/L Carbon Dioxide 15 L (22-30) mmol/L Anion Gap 9 mmol/L BUN 38 H (7-17) mg/dL Creatinine 1.83 H (0.52-1.04) mg/dL Est GFR (CKD-EPI)AfAm 31 (>60 ml/min/1.73 sqM) Est GFR (CKD-EPI)NonAf 27 (>60 ml/min/1.73 sqM) Glucose 197 H (74-99) mg/dL Plasma Lactic Acid Ruperto (0.7-2.0) mmol/L Calcium 9.5 (8.4-10.2) mg/dL Total Bilirubin 0.5 (0.2-1.3) mg/dL AST 92 H (14-36) U/L ALT 57 H (4-34) U/L Alkaline Phosphatase 50 (38-126) U/L Troponin I (0.000-0.034) ng/mL Total Protein 6.5 (6.3-8.2) g/dL Albumin 3.7 (3.5-5.0) g/dL Amylase 90 (30-110) U/L Lipase 119 (23-300) U/L Urine Color Urine Appearance (Clear) Urine pH (5.0-8.0) Ur Specific [place] (1.001-1.035) Urine Protein (Negative) Urine Glucose (UA) (Negative) Urine Ketones (Negative) Urine Blood (Negative) Urine Nitrite (Negative) Urine Bilirubin (Negative) Urine Urobilinogen (<2.0) mg/dL Ur Leukocyte Esterase (Negative) Urine RBC (0-5) /hpf Urine WBC (0-5) /hpf Urine WBC Clumps (None) /hpf Ur Squamous Epith Cells (0-4) /hpf Urine Bacteria (None) /hpf Hyaline Casts (0-2) /lpf Urine Mucus (None) /hpf 10/12/21 10/12/21 10/12/21 Range/Units 19:15 19:15 19:35 WBC (3.8-10.6) k/uL RBC (3.80-5.40) m/uL Hgb (11.4-16.0) gm/dL Hct (34.0-46.0) % MCV (80.0-100.0) fL MCH (25.0-35.0) pg MCHC (31.0-37.0) g/dL RDW (11.5-15.5) % Plt Count (150-450) k/uL MPV Neutrophils % Neutrophils % (Manual) % Band Neuts % (Manual) % Lymphocytes % Lymphocytes % (Manual) % Monocytes % Monocytes % (Manual) % Eosinophils % Basophils % Metamyelocytes % % Neutrophils # Neutrophils # (Manual) (1.3-7.7) k/uL Lymphocytes # Lymphocytes # (Manual) (1.0-4.8) k/uL Monocytes # Monocytes # (Manual) (0-1.0) k/uL Eosinophils # Basophils # Metamyelocytes # (Man) (0) k/uL Nucleated RBCs (0-0) /100 WBC Manual Slide Review Toxic Granulation Polychromasia PT (9.0-12.0) sec INR (<1.2) APTT (22.0-30.0) sec Sodium (137-145) mmol/L Potassium (3.5-5.1) mmol/L Chloride (98-107) mmol/L Carbon Dioxide (22-30) mmol/L Anion Gap mmol/L BUN (7-17) mg/dL Creatinine (0.52-1.04) mg/dL Est GFR (CKD-EPI)AfAm (>60 ml/min/1.73 sqM) Est GFR (CKD-EPI)NonAf (>60 ml/min/1.73 sqM) Glucose (74-99) mg/dL Plasma Lactic Acid Ruperto 2.6 H* (0.7-2.0) mmol/L Calcium (8.4-10.2) mg/dL Total Bilirubin (0.2-1.3) mg/dL AST (14-36) U/L ALT (4-34) U/L Alkaline Phosphatase (38-126) U/L Troponin I <0.012 (0.000-0.034) ng/mL Total Protein (6.3-8.2) g/dL Albumin (3.5-5.0) g/dL Amylase (30-110) U/L Lipase (23-300) U/L Urine Color Yellow Urine Appearance Cloudy H (Clear) Urine pH 6.0 (5.0-8.0) Ur Specific [place] 1.019 (1.001-1.035) Urine Protein 3+ H (Negative) Urine Glucose (UA) 2+ H (Negative) Urine Ketones Negative (Negative) Urine Blood Moderate H (Negative) Urine Nitrite Positive H (Negative) Urine Bilirubin Negative (Negative) Urine Urobilinogen <2.0 (<2.0) mg/dL Ur Leukocyte Esterase Moderate H (Negative) Urine RBC 10 H (0-5) /hpf Urine WBC 132 H (0-5) /hpf Urine WBC Clumps Rare H (None) /hpf Ur Squamous Epith Cells 1 (0-4) /hpf Urine Bacteria Moderate H (None) /hpf Hyaline Casts 1 (0-2) /lpf Urine Mucus Rare H (None) /hpf Critical Care Time Critical Care Time: Yes Total Critical Care Time: 32 <Daniel Vásquez - Last Filed: 10/12/21 21:58> Disposition <Keegan Cheng - Last Filed: 10/12/21 18:59> Is patient prescribed a controlled substance at d/c from ED?: No Time of Disposition: 21:35 <Daniel Vásquez - Last Filed: 10/12/21 21:58> Clinical Impression: Urinary tract infection, Severe sepsis Disposition: ADMITTED IP TO THIS HOSP
[2021-10-12 19:31] LABS: HCT 42.2 % (34.0-46.0); HGB 13.8 gm/dL (11.4-16.0); MCH 31.4 pg (25.0-35.0); MCHC 32.7 g/dL (31.0-37.0); MCV 95.9 fL (80.0-100.0); Mean Platelet Volume 8.3; Platelet Count 381 k/uL (150-450); RDW 13.4 % (11.5-15.5); WBC 16.1 k/uL (3.8-10.6)
[2021-10-12 19:42] LABS: Partial Thromboplastin Time 22.5 sec (22.0-30.0); Prothrombin Time 10.6 sec (9.0-12.0)
[2021-10-12 20:23] LABS: Albumin 3.7 g/dL (3.5-5.0); Calcium 9.5 mg/dL (8.4-10.2); Total Bilirubin 0.5 mg/dL (0.2-1.3); Total Protein 6.5 g/dL (6.3-8.2)
[2021-10-12] MEDS ORDERED: SODIUM CHLORIDE 0.9% 1,000 ML IV STA ×2 (20:40→21:35)
[2021-10-12 20:49] LABS: Appearance,Urine Cloudy (Clear); Bacteria,Urine Moderate /hpf; Bilirubin,Urine Negative (Negative); Blood,Urine Moderate (Negative); Color,Urine Yellow; Glucose,Urine (UA) 2+ (Negative); Hyaline Casts,Urine 1 /lpf (0-2); Ketones,Urine Negative (Negative); Leukocyte Esterase,Urine Moderate (Negative); Mucus,Urine Rare /hpf; Nitrite,Urine Positive (Negative); Protein,Urine 3+ (Negative); RBC,Urine 10 /hpf (0-5); Specific Gravity,Urine 1.019 (1.001-1.035); Squamous Epithelial Cell,Urine 1 /hpf (0-4); Urobilinogen,Urine <2.0 mg/dL (<2.0); WBC,Urine 132 /hpf (0-5)
--- NOTE | 2021-10-12 21:30 | CT ---
EXAMINATION TYPE: CT abdomen pelvis wo con DATE OF EXAM: 10/12/2021 COMPARISON: -April 22, 2015 HISTORY: abdominal pain images obtained from the diaphragm to the floor of the pelvis without contras t. The lung bases show minimal subsegmental atelectasis right lower lobe. No pleural effusion. Heart siz e is normal. No pericardial effusion. Liver spleen and stomach pancreas appear intact. There are clips from cholecystectomy. The bile ducts are not dilated. There is no adrenal mass. There are multiple bilateral renal cortical cysts that measure up to 4 cm. No hydronephrosis. Ureters are not dilated. There is no retroperitoneal adenopathy. Bladder distends smoothly. There is no inguinal hernia. No free fluid in the pelvis. No sign of a pelvic mass. There is hysterectomy. There is no mesenteric edema. No ascites or free air . No sign of a bowel obstruction. Appendix is medial and appears normal. The lumbar vertebra appear intact. There is narrowing at L4-5 disc space with mild spurring. No compr ession fracture. The bony pelvis is intact. The hip joints are intact. There is minor spurring at the acetabula. There is atherosclerotic vascular disease. IMPRESSION: Multiple renal cortical cysts. No renal obstruction. Previous surgery. No acute abnormality within th e abdomen and pelvis. Normal appendix.
[2021-10-12] MEDS ORDERED: NALOXONE 0.4 MG/ML 1 ML VIAL IV PRN (21:35)
[2021-10-12] MEDS ORDERED: ONDANSETRON 4 MG/2 ML VIAL IVP PRN (21:35)
[2021-10-12 21:47] LABS: Band Neutrophils % 16 %; Lymphocytes # (M) 0.97 k/uL (1.0-4.8); Metamyelocytes # (M) 0.16 k/uL (0); Metamyelocytes % 1 %; Monocytes # (M) 0.16 k/uL (0-1.0); Neutrophils % (M) 77 %; Nucleated Red Blood Cells 0 /100 WBC (0-0); Polychromasia Present; Total Cells Counted 200; Toxic Granulation Present
[2021-10-13 05:01] LABS: Basophils % (A) 0 %; Eosinophils % (A) 0 %; HGB 11.7 gm/dL (11.4-16.0); Lymphocytes # (A) 1.4 k/uL (1.0-4.8); Lymphocytes % (A) 9 %; MCH 30.6 pg (25.0-35.0); MCHC 31.7 g/dL (31.0-37.0); MCV 96.5 fL (80.0-100.0); Mean Platelet Volume 9.6; Monocytes # (A) 0.8 k/uL (0-1.0); Monocytes % (A) 5 %; Neutrophils # (A) 13.8 k/uL (1.3-7.7); Neutrophils % (A) 85 %; Platelet Count 322 k/uL (150-450); RBC 3.83 m/uL (3.80-5.40); RDW 13.4 % (11.5-15.5); WBC 16.2 k/uL (3.8-10.6)
[2021-10-13 05:09] LABS: Calcium 8.5 mg/dL (8.4-10.2); Potassium 4.6 mmol/L (3.5-5.1)
--- NOTE | 2021-10-13 12:22 | P.HPIM ---
History of Present Illness This is a pleasant 76 years old female with past medical history of hyperlipidemia, hypothyroidism, hypertension, depression hypertension She presents because of severe lower abdominal cramping pain about 10/10 yesterday it was radiating to the back and felt like a cramp like something squeezing. Nonradiating to somewhere else. So patient decided to come to emergency room and her pain subsided once she started on IV fluids, currently she is pleasant and smiling and talking to her daughter at bedside. She looks comfortable and her pain is a 3/10 in the lower abdomen. No nausea vomiting or diarrhea. No dysuria or urgency, no headache or weakness or numbness. Also patient was a bit confused yesterday per daughter now she is back to baseline. He denies smoking, alcohol or illicit drugs. She denies any leg weakness or back pain. She is working well to the bathroom. Vitals are stable and patient is afebrile. Showing leukocytosis of 16.1. Rest of CBC is unremarkable. INR is 1.0. Sodium 131, creatinine is elevated at 1.8, compared to baseline of 1.0-1.1 and 2018. Moderately elevated lactic acid 2.6, liver enzymes mostly elevated with AST 92 and ALT 57 and bilirubin is normal 0.5. Lipase normal at 119. Urine analysis is strongly suspicious for infection EKG showing normal sinus rhythm at 81, with no significant ST-T changes CT of the abdomen and pelvis without contrast: Multiple renal cysts, no renal obstruction, previous surgery. No acute abnormality within the abdomen and pelvis. Normal appendix In the emergency room patient received normal saline, pain medication and started on antibiotics with ceftriaxone Review of Systems Review of systems CONSTITUTIONAL: No fever, no malaise, no fatigue. HEENT: No recent visual problems or hearing problems. Denied any sore throat. CARDIOVASCULAR: No orthopnea, PND, no palpitations, no syncope. PULMONARY: No shortness of breath, no cough, no hemoptysis. GASTROINTESTINAL: No diarrhea, no nausea, no vomiting, no abdominal pain. Normoactive bowel sounds. NEUROLOGICAL: No headaches, no weakness, no numbness. HEMATOLOGICAL: Denies any bleeding or petechiae. GENITOURINARY: Denies any burning micturition, frequency, or urgency. MUSCULOSKELETAL/RHEUMATOLOGICAL: Denies any joint pain, swelling, or any muscle pain. ENDOCRINE: Denies any polyuria or polydipsia. Past Medical History Past Medical History: Hypertension, Thyroid Disorder History of Any Multi-Drug Resistant Organisms: None Reported Past Surgical History: Hysterectomy Past Anesthesia/Blood Transfusion Reactions: No Reported Reaction Past Psychological History: Depression Smoking Status: Former smoker Past Alcohol Use History: None Reported Past Drug Use History: None Reported - Past Family History Father Family Medical History: Coronary Artery Disease (CAD) Medications and Allergies Home Medications Medication Instructions Recorded Confirmed Type Fenofibrate 160 mg PO HS 05/13/18 10/12/21 History Levothyroxine Sodium [Synthroid] 100 mcg PO DAILY 05/13/18 10/12/21 History Vitamin B Complex 1 cap PO DAILY 05/13/18 10/12/21 History amLODIPine BESYLATE 5 mg PO BID 05/13/18 10/12/21 History buPROPion XL [Wellbutrin XL] 150 mg PO DAILY 05/13/18 10/12/21 History ALPRAZolam [Xanax] 0.125 mg PO DAILY PRN 10/12/21 10/12/21 History ALPRAZolam [Xanax] 0.25 mg PO HS 10/12/21 10/12/21 History Acetaminophen [Tylenol] 500 mg PO HS 10/12/21 10/12/21 History Cholecalciferol [Vitamin D3 (25 50 mcg PO HS 10/12/21 10/12/21 History Mcg = 1000 Iu)] Losartan Potassium 100 mg PO DAILY 10/12/21 10/12/21 History Magnesium Chloride [Mag64] 64 mg PO DAILY 10/12/21 10/12/21 History Metoprolol Succinate [Toprol XL] 50 mg PO DAILY 10/12/21 10/12/21 History [place]-3 Fatty Acids/Fish Oil [Fish 1 cap PO HS 10/12/21 10/12/21 History Oil 1,000 mg Softgel] Allergies Allergy/AdvReac Type Severity Reaction Status Date / Time tetracycline Allergy Unknown Verified 10/12/21 21:51 azithromycin AdvReac Nausea & Verified 10/12/21 21:51 Vomiting Physical Exam Vitals: Vital Signs Temp Pulse Pulse Resp BP BP Pulse Ox 10/13/21 00:58 98.3 F 79 18 133/59 94 L 10/12/21 23:08 98.0 F 80 16 170/69 94 L 10/12/21 22:32 80 16 153/71 98 10/12/21 20:58 80 18 165/79 93 L 10/12/21 19:54 77 24 151/69 95 10/12/21 18:52 97.8 F 89 16 165/67 94 L Intake and Output 10/12/21 10/13/21 10/13/21 22:59 06:59 14:59 Intake Total 900 Balance 900 Intake: Intake, IV Titration 900 Amount Sodium Chloride 0.9% 1, 900 000 ml @ 130 mls/hr IV . Q7H42M STA Rx#:[id number] Other: Voiding Method Toilet # Voids 4 Weight 87.997 kg GENERAL: The patient is alert and oriented x3, not in any acute distress. Well developed, well nourished. HEENT: Pupils are round and equally reacting to light. EOMI. No scleral icterus. No conjunctival pallor. Normocephalic, atraumatic. No pharyngeal erythema. No thyromegaly. CARDIOVASCULAR: S1 and S2 present. No murmurs, rubs, or gallops. PULMONARY: Chest is clear to auscultation, no wheezing or crackles. -ABDOMEN: Soft, nontender, nondistended, normoactive bowel sounds. No palpable organomegaly. MUSCULOSKELETAL: No joint swelling or deformity. EXTREMITIES: No cyanosis, clubbing, or pedal edema. NEUROLOGICAL: Gross neurological examination did not reveal any focal deficits. SKIN: No rashes. no petechiae. Mild lower abdominal tenderness, no rebound tenderness or guarding Results CBC & Chem 7: 10/13/21 03:28 10/13/21 03:28 Labs: Abnormal Lab Results - Last 24 Hours (Table) 10/12/21 10/12/21 10/12/21 Range/Units 19:15 19:15 19:15 WBC 16.1 H (3.8-10.6) k/uL Neutrophils # (1.3-7.7) k/uL Neutrophils # (Manual) 14.90 H (1.3-7.7) k/uL Lymphocytes # (Manual) 0.97 L (1.0-4.8) k/uL Metamyelocytes # (Man) 0.16 H (0) k/uL Sodium 131 L (137-145) mmol/L Chloride (98-107) mmol/L Carbon Dioxide 15 L (22-30) mmol/L BUN 38 H (7-17) mg/dL Creatinine 1.83 H (0.52-1.04) mg/dL Glucose 197 H (74-99) mg/dL Plasma Lactic Acid Ruperto 2.6 H* (0.7-2.0) mmol/L AST 92 H (14-36) U/L ALT 57 H (4-34) U/L Urine Appearance (Clear) Urine Protein (Negative) Urine Glucose (UA) (Negative) Urine Blood (Negative) Urine Nitrite (Negative) Ur Leukocyte Esterase (Negative) Urine RBC (0-5) /hpf Urine WBC (0-5) /hpf Urine WBC Clumps (None) /hpf Urine Bacteria (None) /hpf Urine Mucus (None) /hpf 10/12/21 10/13/21 10/13/21 Range/Units 19:35 03:28 03:28 WBC 16.2 H (3.8-10.6) k/uL Neutrophils # 13.8 H (1.3-7.7) k/uL Neutrophils # (Manual) (1.3-7.7) k/uL Lymphocytes # (Manual) (1.0-4.8) k/uL Metamyelocytes # (Man) (0) k/uL Sodium 135 L (137-145) mmol/L Chloride 109 H (98-107) mmol/L Carbon Dioxide 18 L (22-30) mmol/L BUN 40 H (7-17) mg/dL Creatinine 2.11 H (0.52-1.04) mg/dL Glucose 112 H (74-99) mg/dL Plasma Lactic Acid Ru[place] (0.7-2.0) mmol/L AST (14-36) U/L ALT (4-34) U/L Urine Appearance Cloudy H (Clear) Urine Protein 3+ H (Negative) Urine Glucose (UA) 2+ H (Negative) Urine Blood Moderate H (Negative) Urine Nitrite Positive H (Negative) Ur Leukocyte Esterase Moderate H (Negative) Urine RBC 10 H (0-5) /hpf Urine WBC 132 H (0-5) /hpf Urine WBC Clumps Rare H (None) /hpf Urine Bacteria Moderate H (None) /hpf Urine Mucus Rare H (None) /hpf Microbiology - Last 24 Hours (Table) 10/12/21 19:35 Urine Culture - Preliminary Urine,Voided Thrombosis Risk Factor Assmnt - Choose All That Apply Each Risk Factor Represents 3 Points: Age 75 years or older Thrombosis Risk Factor Assessment Total Risk Factor Score: 3 Thrombosis Risk Factor Assessment Level: Moderate Risk Assessment and Plan Assessment: Acute urinary tract infection Abdominal pain, secondary to above Acute kidney injury Hypovolemic hyponatremia Mild transaminitis Hyperlipidemia Hypothyroidism History of depression, not an active issue Obesity with BMI of 54.4 Plan: She is a pleasant 76 years old female who presents with UTI Continue with ceftriaxone Follow-up urine culture we will check renal ultrasound, bladder scan and consult olive picker Hold losartan Labs and medication were reviewed.. Continue same treatment. Continue with symptomatic treatment. Resume home medication. Monitor lytes and vitals. DVT and GI prophylaxis. Further recommendations as per clinical course of the patient DVT prophylaxis: Subcutaneous heparin GI Prophylaxis: Pepcid PT/OT: Pending Prognosis is guarded
--- NOTE | 2021-10-13 14:58 | US ---
EXAMINATION TYPE: US renals and bladder DATE OF EXAM: 10/13/2021 COMPARISON: CT 2021, US 2016 CLINICAL HISTORY: libert[facility]. Exam done portable EXAM MEASUREMENTS: Right Kidney: 11.1 x 6.4 x 5.4 cm Left Kidney: 12.1 x 5.7 x 5.9 cm Right Kidney: multiple cysts with largest measuring 3.5cm superior pole Left Kidney: multiple cysts with largest septated cyst inferior pole measuring 3.7cm Bladder: not fully distended, appears wnl as seen Bilateral Jets seen: no There is no evidence for hydronephrosis at this point in time. No nephrolithiasis is seen. No jennifer s are identified. Cortical medullary differentiation is maintained. IMPRESSION: Multiple cortical cysts are again noted bilaterally
[2021-10-13] MEDS ORDERED: FAMOTIDINE 20 MG/2 ML VIAL IV SCH (21:00)
[2021-10-13] MEDS: FENOFIBRATE 160 MG TAB PO SCH (22:26)
[2021-10-13] MEDS: ALPRAZolam 0.25 MG TAB PO PRN (22:26)
[2021-10-13] MEDS: amLODIPine 5 MG TAB PO SCH (22:26)
[2021-10-13] MEDS: HEPARIN SODIUM,PORCINE/PF 5,000 UNIT/0.5 ML SYRINGE SQ SCH (22:27)
[2021-10-14] MEDS: ACETAMINOPHEN TAB 325 MG TAB PO PRN (02:05)
[2021-10-14] MEDS: LEVOTHYROXINE 100 MCG TAB PO SCH (06:27)
[2021-10-14] MEDS: buPROPion XL 150 MG TAB.ER.24H PO SCH (08:22)
[2021-10-14] MEDS: amLODIPine 5 MG TAB PO SCH ×2 (08:22→19:52)
[2021-10-14] MEDS: METOPROLOL SUCCINATE (ER) 50 MG TAB.ER.24H PO SCH (08:22)
[2021-10-14] MEDS: HEPARIN SODIUM,PORCINE/PF 5,000 UNIT/0.5 ML SYRINGE SQ SCH ×2 (08:23→21:16)
[2021-10-14] MEDS: SODIUM CHLORIDE 0.9% 1,000 ML IV SCH (08:23)
--- NOTE | 2021-10-14 10:07 | P.NPCON ---
History of Present Illness - Reason for Consult acute renal failure, chronic renal failure - History of Present Illness Reason for consultation: Acute kidney injury on chronic kidney disease History of present illness: Patient is a 76-year-old female seen in renal consultation for acute kidney injury on chronic kidney disease. Patient's creatinine in 2018 was in the range of 1-1.5. Creatinine this admission was 1.83 and is up to 2.11 today. Patient presented to the hospital with abdominal discomfort. Daughter present at bedside. Patient has been battling UTIs the last 2 months and has completed 3 courses of antibiotics. Patient states abdominal pain was getting worse and she also developed shakes. She also admits to low-grade fever. No hematuria or dysuria. No vomiting or diarrhea. Denies use of nonsteroidals. Patient states she was a diabetic and was taking metformin but has been off all medications for about 10 years now. No history of cardiac disease. No chest pain or shortness of breath. No edema. Has been waiting. Urine culture is pending. Patient's blood cultures positive for gram-positive cocci. She is on IV antibiotics. Patient states she has seen a urologist in the past about 2 years ago and had a cystoscopy done which was normal. Vital signs are stable. General: Awake and alert. No acute distress. HEENT: Head exam is unremarkable. LUNGS: Breath sounds decreased. HEART: Rate and Rhythm are regular. ABDOMEN: Soft, no distention. EXTREMITITES: No edema. Past Medical History Past Medical History: Hypertension, Thyroid Disorder History of Any Multi-Drug Resistant Organisms: None Reported Past Surgical History: Hysterectomy Past Anesthesia/Blood Transfusion Reactions: No Reported Reaction Past Psychological History: Depression Smoking Status: Former smoker Past Alcohol Use History: None Reported Past Drug Use History: None Reported - Past Family History Father Family Medical History: Coronary Artery Disease (CAD) Medications and Allergies Home Medications Medication Instructions Recorded Confirmed Type Fenofibrate 160 mg PO HS 05/13/18 10/12/21 History Levothyroxine Sodium [Synthroid] 100 mcg PO DAILY 05/13/18 10/12/21 History Vitamin B Complex 1 cap PO DAILY 05/13/18 10/12/21 History amLODIPine BESYLATE 5 mg PO BID 05/13/18 10/12/21 History buPROPion XL [Wellbutrin XL] 150 mg PO DAILY 05/13/18 10/12/21 History ALPRAZolam [Xanax] 0.125 mg PO DAILY PRN 10/12/21 10/12/21 History ALPRAZolam [Xanax] 0.25 mg PO HS 10/12/21 10/12/21 History Acetaminophen [Tylenol] 500 mg PO HS 10/12/21 10/12/21 History Cholecalciferol [Vitamin D3 (25 50 mcg PO HS 10/12/21 10/12/21 History Mcg = 1000 Iu)] Losartan Potassium 100 mg PO DAILY 10/12/21 10/12/21 History Magnesium Chloride [Mag64] 64 mg PO DAILY 10/12/21 10/12/21 History Metoprolol Succinate [Toprol XL] 50 mg PO DAILY 10/12/21 10/12/21 History [place]-3 Fatty Acids/Fish Oil [Fish 1 cap PO HS 10/12/21 10/12/21 History Oil 1,000 mg Softgel] Allergies Allergy/AdvReac Type Severity Reaction Status Date / Time tetracycline Allergy Unknown Verified 10/12/21 21:51 azithromycin AdvReac Nausea & Verified 10/12/21 21:51 Vomiting Physical Exam Vitals: Vital Signs Temp Pulse Resp BP Pulse Ox 10/14/21 07:39 98.3 F 81 19 152/71 97 10/14/21 04:39 98.5 F 10/14/21 01:47 100.2 F H 97 16 164/66 96 10/13/21 22:20 99.5 F 92 17 170/70 95 10/13/21 19:09 17 10/13/21 14:00 98.6 F 80 17 149/75 97 Intake and Output 10/13/21 10/14/21 10/14/21 22:59 06:59 14:59 Other: Voiding Method Toilet Toilet # Voids 2 Results - Lab Results Most recent lab results Calcium 8.5 mg/dL (8.4-10.2) 10/13/21 03:28 10/13/21 03:28 10/13/21 03:28 Assessment and Plan Plan: Assessment: 1. Acute kidney injury secondary to ATN secondary to severe sepsis. Creatinine 1.83 on admission and was 2.1 yesterday. Creatinine in 2018 was in the range of 1-1.5. 2. Severe sepsis secondary to UTI and gram-positive bacteremia on antibiotics. 3. Metabolic acidosis secondary to acute kidney injury and IV fluids. Also component of lactic acidosis. 4. Chronic kidney disease stage IIIa with baseline creatinine in the range of 1-1.5 in 2018. Etiology is likely nephrosclerosis. 5. Hypertension with chronic kidney disease. Plan: Maintain IV fluids. Add oral sodium bicarb. Continue to hold losartan for now. Avoid nephrotoxins. Follow-up cultures. Continue to monitor renal function and urine output. Thank you for the consultation. I will continue to follow the patient with you during her hospital stay.
[2021-10-14 10:45] LABS: Basophils # (A) 0.03 X 10*3/uL (0.00-0.10); Basophils % (A) 0.3 %; Eosinophils # (A) 0.06 X 10*3/uL (0.04-0.35); Eosinophils % (A) 0.6 %; HCT 34.8 % (37.2-46.3); HGB 10.7 g/dL (12.0-15.0); Immature Grans, Automated 0.5 %; Lymphocytes # (A) 1.37 X 10*3/uL (0.90-5.00); Lymphocytes % (A) 14.1 %; MCHC 30.7 g/dL (32.0-37.0); MCV 97.5 fL (80.0-97.0); Mean Platelet Volume 11.7 fL (9.5-12.2); Monocytes # (A) 0.78 X 10*3/uL (0.20-1.00); NRBC Per 100 WBC 0 /100 WBCS (0.0-0.0); Neutrophils % (A) 76.5 %; Platelet Count 252 X 10*3/uL (140-440); RBC 3.57 X 10*6/uL (4.10-5.20); RDW 13.4 % (11.5-14.5); WBC 9.69 X 10*3/uL (4.50-10.00)
[2021-10-14 14:55] LABS: African American GFR (CKD) 24.6 (60.0-200.0); BUN/Creat Ratio 15.05 Ratio (12.00-20.00); Blood Urea Nitrogen 33.1 mg/dL (9.0-27.0); Calcium 8.4 mg/dL (8.7-10.3); Magnesium 1.7 mg/dL (1.5-2.4); Non-African American GFR(CKD) 21.2 (60.0-200.0); Potassium 4.3 mmol/L (3.5-5.5)
--- NOTE | 2021-10-14 20:27 | P.PN ---
Subjective This is a pleasant 76 years old female with past medical history of hyperlipidemia, hypothyroidism, hypertension, depression hypertension She presents because of severe lower abdominal cramping pain about 10/10 yesterday it was radiating to the back and felt like a cramp like something squeezing. Nonradiating to somewhere else. So patient decided to come to emergency room and her pain subsided once she started on IV fluids, currently she is pleasant and smiling and talking to her daughter at bedside. She looks comfortable and her pain is a 3/10 in the lower abdomen. No nausea vomiting or diarrhea. No dysuria or urgency, no headache or weakness or numbness. Also patient was a bit confused yesterday per daughter now she is back to base line. He denies smoking, alcohol or illicit drugs. She denies any leg weakness or back pain. She is working well to the bathroom. Vitals are stable and patient is afebrile. Showing leukocytosis of 16.1. Rest of CBC is unremarkable. INR is 1.0. Sodium 131, creatinine is elevated at 1.8, compared to baseline of 1.0-1.1 and 2018. Moderately elevated lactic acid 2.6, liver enzymes mostly elevated with AST 92 and ALT 57 and bilirubin is normal 0.5. Lipase normal at 119. Urine analysis is strongly suspicious for infection EKG showing normal sinus rhythm at 81, with no significant ST-T changes CT of the abdomen and pelvis without contrast: Multiple renal cysts, no renal obstruction, previous surgery. No acute abnormality within the abdomen and pelvis. Normal appendix In the emergency room patient received normal saline, pain medication and started on antibiotics with ceftriaxone 10/14/2021 Patient clinically and at bedside is doing well, actually she denies any symptoms. However she has low-grade temperature around 100. Rest of vitals stable. Leukocytosis resolved at down to 9.6, creatinine is still elevated at 2.2, She remains on ceftriaxone 2 g of normal saline 75 mL/h The first chemo on the case, also we will consult urology and infectious disease team in view of her persistent bacteremia, third blood culture from today showing gram-negative bacilli. Objective - Vital Signs Vital signs: Vital Signs Temp 98.3 F 10/14/21 07:39 Pulse 81 10/14/21 07:39 Resp 19 10/14/21 07:39 BP 152/71 10/14/21 07:39 Pulse Ox 97 10/14/21 07:39 FiO2 Intake & Output 10/13/21 10/14/21 10/14/21 18:59 06:59 18:59 Other: Voiding Method Toilet Toilet Toilet # Voids 2 - Exam GENERAL: The patient is alert and oriented x3, not in any acute distress. Well developed, well nourished. HEENT: Pupils are round and equally reacting to light. EOMI. No scleral icterus. No conjunctival pallor. Normocephalic, atraumatic. No pharyngeal erythema. No thyromegaly. CARDIOVASCULAR: S1 and S2 present. No murmurs, rubs, or gallops. PULMONARY: Chest is clear to auscultation, no wheezing or crackles. ABDOMEN: Soft, nontender, nondistended, normoactive bowel sounds. No palpable organomegaly. MUSCULOSKELETAL: No joint swelling or deformity. EXTREMITIES: No cyanosis, clubbing, or pedal edema. NEUROLOGICAL: Gross neurological examination did not reveal any focal deficits. SKIN: No rashes. no petechiae. - Labs CBC & Chem 7: 10/14/21 06:54 10/14/21 06:54 Labs: Abnormal Lab Results - Last 24 Hours (Table) 10/14/21 Range/Units 06:54 RBC 3.57 L (4.10-5.20) X 10*6/uL Hgb 10.7 L (12.0-15.0) g/dL Hct 34.8 L (37.2-46.3) % MCV 97.5 H (80.0-97.0) fL MCHC 30.7 L (32.0-37.0) g/dL Immature Gran # 0.05 H (0.00-0.04) X 10*3/uL Microbiology - Last 24 Hours (Table) 10/12/21 22:00 Blood Culture Gram Stain - Preliminary Blood Blood Culture - Preliminary Gram Neg Bacilli 10/12/21 21:45 Blood Culture Gram Stain - Preliminary Blood Blood Culture - Preliminary Gram Neg Bacilli 10/12/21 19:35 Urine Culture - Preliminary Urine,Voided Gram Neg Bacilli 10/12/21 21:45 Blood Culture Gram Stain - Preliminary Blood 10/12/21 21:45 Blood Culture - Final Blood 10/12/21 22:00 Blood Culture - Final Blood Assessment and Plan Assessment: Acute urinary tract infection gram-negative bacteremia, she has another positive blood culture for gram- positive cocci Sepsis secondary to above Multiple bilateral renal cysts on renal ultrasound, the largest is 3.5 cm on the right side and 3.7 cm on the left side Abdominal pain, secondary to above Acute kidney injury Hypovolemic hyponatremia Mild transaminitis Hyperlipidemia Hypothyroidism History of depression, not an active issue Obesity with BMI of 54.4 Plan: She is a pleasant 76 years old female who presents with UTI Continue with ceftriaxone 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 Continue same treatment. Continue with symptomatic treatment. Resume home medication. Monitor lytes and vitals. DVT and GI prophylaxis. Further recommendations as per clinical course of the patient DVT prophylaxis: Subcutaneous heparin GI Prophylaxis: Pepcid PT/OT: Pending Prognosis is guarded
[2021-10-14] MEDS: FAMOTIDINE 20 MG TAB PO SCH (21:16)
[2021-10-14] MEDS: FENOFIBRATE 160 MG TAB PO SCH (21:16)
[2021-10-14] MEDS ORDERED: hydrALAZINE HCL 20 MG/ML 1 ML VIAL IVP PRN (21:46)
[2021-10-14] MEDS: hydrALAZINE HCL 25 MG TAB PO SCH (21:55)
--- NOTE | 2021-10-14 22:02 | P.GSCN ---
History of Present Illness Consult date: 10/14/21 Reason for Consult: UTI, renal cysts Requesting physician: Eron E Sheet History of present illness: The patient is a 76-year-old white female admitted with UTI with sepsis. She states that she has been treated for recurrent E. coli UTIs, so much so that Dr. Solorzano is had concerns regarding how many antibiotics she has been on. She denies any prior history of urolithiasis. She has known renal cysts, which she states she has been aware of for years and have been stable. She drinks cranberry juice but does not take cranberry tablets. She was admitted with complaints of bilateral flank and abdominal pain associated with chills. Urine and blood cultures show gram-negative bacilli. She is receiving antibiotics and is feeling much better. Review of Systems - Constitutional Reports chills, Denies fever - Genitourinary Genitourinary: Reports flank pain, Denies dysuria, Denies hematuria Past Medical History Past Medical History: Hypertension, Thyroid Disorder Additional Past Medical History / Comment(s): Ovarian cancer History of Any Multi-Drug Resistant Organisms: None Reported Past Surgical History: Hysterectomy Past Anesthesia/Blood Transfusion Reactions: No Reported Reaction Past Psychological History: Depression Smoking Status: Former smoker Past Alcohol Use History: None Reported Past Drug Use History: None Reported - Past Family History Father Family Medical History: Coronary Artery Disease (CAD) Medications and Allergies Home Medications Medication Instructions Recorded Confirmed Type Fenofibrate 160 mg PO HS 05/13/18 10/12/21 History Levothyroxine Sodium [Synthroid] 100 mcg PO DAILY 05/13/18 10/12/21 History Vitamin B Complex 1 cap PO DAILY 05/13/18 10/12/21 History amLODIPine BESYLATE 5 mg PO BID 05/13/18 10/12/21 History buPROPion XL [Wellbutrin XL] 150 mg PO DAILY 05/13/18 10/12/21 History ALPRAZolam [Xanax] 0.125 mg PO DAILY PRN 10/12/21 10/12/21 History ALPRAZolam [Xanax] 0.25 mg PO HS 10/12/21 10/12/21 History Acetaminophen [Tylenol] 500 mg PO HS 10/12/21 10/12/21 History Cholecalciferol [Vitamin D3 (25 50 mcg PO HS 10/12/21 10/12/21 History Mcg = 1000 Iu)] Losartan Potassium 100 mg PO DAILY 10/12/21 10/12/21 History Magnesium Chloride [Mag64] 64 mg PO DAILY 10/12/21 10/12/21 History Metoprolol Succinate [Toprol XL] 50 mg PO DAILY 10/12/21 10/12/21 History [place]-3 Fatty Acids/Fish Oil [Fish 1 cap PO HS 10/12/21 10/12/21 History Oil 1,000 mg Softgel] Allergies Allergy/AdvReac Type Severity Reaction Status Date / Time tetracycline Allergy Unknown Verified 10/12/21 21:51 azithromycin AdvReac Nausea & Verified 10/12/21 21:51 Vomiting Surgical - Exam Vital Signs Temp Pulse Resp BP Pulse Ox 97.8 F 89 16 165/67 94 L 10/12/21 18:52 10/12/21 18:52 10/12/21 18:52 10/12/21 18:52 10/12/21 18:52 - General well developed, well nourished, no distress - Neck no masses, trachea midline - Respiratory normal respiratory effort - Abdomen Abdomen: soft, non tender, no guarding, no rigid, no rebound - Psychiatric oriented to time, oriented to person, oriented to place, speech is normal, memory intact Results - Labs 10/14/21 06:54 10/14/21 06:54 Abnormal Lab Results - Last 24 Hours (Table) 10/14/21 10/14/21 Range/Units 06:54 06:54 RBC 3.57 L (4.10-5.20) X 10*6/uL Hgb 10.7 L (12.0-15.0) g/dL Hct 34.8 L (37.2-46.3) % MCV 97.5 H (80.0-97.0) fL MCHC 30.7 L (32.0-37.0) g/dL Immature Gran # 0.05 H (0.00-0.04) X 10*3/uL Chloride 110 H (96-109) mmol/L Carbon Dioxide 17.0 L (20.0-27.5) mmol/L BUN 33.1 H (9.0-27.0) mg/dL Creatinine 2.2 H (0.6-1.5) mg/dL Est GFR (CKD-EPI)AfAm 24.6 L (60.0-200.0) Est GFR (CKD-EPI)NonAf 21.2 L (60.0-200.0) Calcium 8.4 L (8.7-10.3) mg/dL Microbiology - Last 24 Hours (Table) 10/12/21 22:00 Blood Culture Gram Stain - Preliminary Blood Blood Culture - Preliminary Gram Neg Bacilli 10/12/21 21:45 Blood Culture Gram Stain - Preliminary Blood Blood Culture - Preliminary Gram Neg Bacilli 10/12/21 19:35 Urine Culture - Preliminary Urine,Voided Gram Neg Bacilli 10/12/21 21:45 Blood Culture Gram Stain - Preliminary Blood 10/12/21 21:45 Blood Culture - Final Blood Diabetes panel 10/14/21 Range/Units 06:54 Sodium 139 (135-145) mmol/L Potassium 4.3 (3.5-5.5) mmol/L Chloride 110 H (96-109) mmol/L Carbon Dioxide 17.0 L (20.0-27.5) mmol/L BUN 33.1 H (9.0-27.0) mg/dL Creatinine 2.2 H (0.6-1.5) mg/dL Glucose 110 (70-110) mg/dL Calcium 8.4 L (8.7-10.3) mg/dL Calcium panel 10/14/21 Range/Units 06:54 Calcium 8.4 L (8.7-10.3) mg/dL Pituitary panel 10/14/21 Range/Units 06:54 Sodium 139 (135-145) mmol/L Potassium 4.3 (3.5-5.5) mmol/L Chloride 110 H (96-109) mmol/L Carbon Dioxide 17.0 L (20.0-27.5) mmol/L BUN 33.1 H (9.0-27.0) mg/dL Creatinine 2.2 H (0.6-1.5) mg/dL Glucose 110 (70-110) mg/dL Calcium 8.4 L (8.7-10.3) mg/dL Adrenal panel 10/14/21 Range/Units 06:54 Sodium 139 (135-145) mmol/L Potassium 4.3 (3.5-5.5) mmol/L Chloride 110 H (96-109) mmol/L Carbon Dioxide 17.0 L (20.0-27.5) mmol/L BUN 33.1 H (9.0-27.0) mg/dL Creatinine 2.2 H (0.6-1.5) mg/dL Glucose 110 (70-110) mg/dL Calcium 8.4 L (8.7-10.3) mg/dL - Imaging CT scan - abdomen: report reviewed, image reviewed US - kidney/bladder: report reviewed Assessment and Plan (1) Urinary tract infection Current Visit: Yes Status: Acute Code(s): N39.0 - URINARY TRACT INFECTION, SITE NOT SPECIFIED SNOMED Code(s): 10731515 (2) Renal cyst Current Visit: Yes Status: Acute Code(s): N28.1 - CYST OF KIDNEY, ACQUIRED SNOMED Code(s): 521890171 Plan: I have reviewed the patient's CT scan, which shows no evidence of renal calculi or hydronephrosis. Bilateral renal cysts are seen. One of the left renal cysts is septated but shows no other worrisome factors. She will continue to receive IV antibiotics, pending the final urine and blood culture results. I will obtain urine culture results from Dr. Solorzano's office, and will recommend that she take cranberry tablets. Time with Patient: Greater than 30
--- NOTE | 2021-10-14 23:37 | P.CONS ---
History of Present Illness - Reason for Consult Consult date: 10/14/21 - History of Present Illness Patient is a 76-year-old female presenting to the ER 2 days ago for evaluation of lower abdominal pain with some radiation to the back with associated nausea no diarrhea or constipation patient was described the pain to be about 7 out of 10 and some radiation to the back patient also complaining of urine becoming more cloudy and has been running a low-grade fever on presentation to the hospital the patient was afebrile however she did spike a fever 100.2 F after midnight today patient did have white count of 16.1 with a left shift BUN/creatinine was mildly elevated lactic acid was elevated patient did have a positive UA blood culture now showing a gram-negative bacilli that h as prompted this infectious disease consultation patient did have a CT of abdominal pelvis which did shows multiple renal cortical cysts no acute abnormality. On today's evaluation the patient is feeling slightly better, the patient urine symptom has improved denies having nausea no vomiting no abdominal pain has improved and no diarrhea Past Medical History Past Medical History: Hypertension, Thyroid Disorder History of Any Multi-Drug Resistant Organisms: None Reported Past Surgical History: Hysterectomy Past Anesthesia/Blood Transfusion Reactions: No Reported Reaction Past Psychological History: Depression Smoking Status: Former smoker Past Alcohol Use History: None Reported Past Drug Use History: None Reported - Past Family History Father Family Medical History: Coronary Artery Disease (CAD) Medications and Allergies Home Medications Medication Instructions Recorded Confirmed Type Fenofibrate 160 mg PO HS 05/13/18 10/12/21 History Levothyroxine Sodium [Synthroid] 100 mcg PO DAILY 05/13/18 10/12/21 History Vitamin B Complex 1 cap PO DAILY 05/13/18 10/12/21 History amLODIPine BESYLATE 5 mg PO BID 05/13/18 10/12/21 History buPROPion XL [Wellbutrin XL] 150 mg PO DAILY 05/13/18 10/12/21 History ALPRAZolam [Xanax] 0.125 mg PO DAILY PRN 10/12/21 10/12/21 History ALPRAZolam [Xanax] 0.25 mg PO HS 10/12/21 10/12/21 History Acetaminophen [Tylenol] 500 mg PO HS 10/12/21 10/12/21 History Cholecalciferol [Vitamin D3 (25 50 mcg PO HS 10/12/21 10/12/21 History Mcg = 1000 Iu)] Losartan Potassium 100 mg PO DAILY 10/12/21 10/12/21 History Magnesium Chloride [Mag64] 64 mg PO DAILY 10/12/21 10/12/21 History Metoprolol Succinate [Toprol XL] 50 mg PO DAILY 10/12/21 10/12/21 History [place]-3 Fatty Acids/Fish Oil [Fish 1 cap PO HS 10/12/21 10/12/21 History Oil 1,000 mg Softgel] Allergies Allergy/AdvReac Type Severity Reaction Status Date / Time tetracycline Allergy Unknown Verified 10/12/21 21:51 azithromycin AdvReac Nausea & Verified 10/12/21 21:51 Vomiting Physical Exam Vitals: Vital Signs Temp Pulse Resp BP Pulse Ox 10/14/21 07:39 98.3 F 81 19 152/71 97 10/14/21 04:39 98.5 F 10/14/21 01:47 100.2 F H 97 16 164/66 96 10/13/21 22:20 99.5 F 92 17 170/70 95 10/13/21 19:09 17 10/13/21 14:00 98.6 F 80 17 149/75 97 Intake and Output 10/13/21 10/14/21 10/14/21 22:59 06:59 14:59 Other: Voiding Method Toilet Toilet # Voids 2 Results CBC & Chem 7: 10/14/21 06:54 10/14/21 06:54 Labs: Microbiology - Last 24 Hours (Table) 10/12/21 21:45 Blood Culture Gram Stain - Preliminary Blood 10/12/21 22:00 Blood Culture Gram Stain - Preliminary Blood 10/12/21 21:45 Blood Culture Gram Stain - Preliminary Blood 10/12/21 21:45 Blood Culture - Final Blood 10/12/21 22:00 Blood Culture - Final Blood Assessment and Plan Plan: 1patient with gram-negative bacteremia in this patient did have urinary symptom s positive UA likely source is urinary CT abdominal pelvis did not show any acute abnormality. 2continue the patient on Rocephin 2 g daily while waiting for the culture to finalize. 3blood cultures will be repeated document clearance of bacteremia. 4- gentle IV fluid We will follow on clinical condition and cultures to further adjust medication if needed Thank you for this consultation will follow this patient along with you
[2021-10-15] MEDS: SODIUM CHLORIDE 0.9% 1,000 ML IV SCH ×2 (00:55→17:46)
[2021-10-15] MEDS: LEVOTHYROXINE 100 MCG TAB PO SCH (05:39)
[2021-10-15] MEDS: hydrALAZINE HCL 25 MG TAB PO SCH (07:47)
[2021-10-15] MEDS: METOPROLOL SUCCINATE (ER) 50 MG TAB.ER.24H PO SCH (07:47)
[2021-10-15] MEDS: HEPARIN SODIUM,PORCINE/PF 5,000 UNIT/0.5 ML SYRINGE SQ SCH ×2 (07:47→20:46)
[2021-10-15] MEDS: amLODIPine 5 MG TAB PO SCH ×2 (07:47→20:49)
--- NOTE | 2021-10-15 10:32 | P.PN ---
Subjective Patient is seen in follow-up for acute kidney injury on chronic kidney disease. Morning labs pending. Urine and blood culture positive for gram-negative bacilli. On antibiotics. Feels well today. No chest pain or shortness of breath. Good urine output. Oral intake fair. Vital signs are stable. General: Awake and alert. No acute distress. HEENT: Head exam is unremarkable. LUNGS: Breath sounds decreased. HEART: Rate and Rhythm are regular. ABDOMEN: Soft, no distention. EXTREMITITES: No edema. Objective - Vital Signs Vital signs: Vital Signs Temp 98.8 F 10/15/21 05:42 Pulse 86 10/15/21 05:42 Resp 15 10/15/21 05:42 BP 149/71 10/15/21 05:42 Pulse Ox 95 10/15/21 05:42 FiO2 Intake & Output 10/14/21 10/15/21 10/15/21 18:59 06:59 18:59 Intake Total 1000 296 Balance 1000 296 Intake: Oral 1000 296 Other: Voiding Method Toilet Toilet Toilet # Voids 3 - Labs CBC & Chem 7: 10/14/21 06:54 10/14/21 06:54 Labs: Abnormal Lab Results - Last 24 Hours (Table) 10/14/21 10/14/21 Range/Units 06:54 06:54 RBC 3.57 L (4.10-5.20) X 10*6/uL Hgb 10.7 L (12.0-15.0) g/dL Hct 34.8 L (37.2-46.3) % MCV 97.5 H (80.0-97.0) fL MCHC 30.7 L (32.0-37.0) g/dL Immature Gran # 0.05 H (0.00-0.04) X 10*3/uL Chloride 110 H (96-109) mmol/L Carbon Dioxide 17.0 L (20.0-27.5) mmol/L BUN 33.1 H (9.0-27.0) mg/dL Creatinine 2.2 H (0.6-1.5) mg/dL Est GFR (CKD-EPI)AfAm 24.6 L (60.0-200.0) Est GFR (CKD-EPI)NonAf 21.2 L (60.0-200.0) Calcium 8.4 L (8.7-10.3) mg/dL Microbiology - Last 24 Hours (Table) 10/12/21 22:00 Blood Culture Gram Stain - Preliminary Blood Blood Culture - Preliminary Gram Neg Bacilli 10/12/21 21:45 Blood Culture Gram Stain - Preliminary Blood Blood Culture - Preliminary Gram Neg Bacilli 10/12/21 19:35 Urine Culture - Preliminary Urine,Voided Gram Neg Bacilli 10/12/21 21:45 Blood Culture Gram Stain - Preliminary Blood Assessment and Plan Plan: Assessment: 1. Acute kidney injury secondary to ATN secondary to severe sepsis. Creatinine 1.83 on admission and was 2.2 yesterday. Morning labs pending. Creatinine in 2018 was in the range of 1-1.5. 2. Severe sepsis secondary to gram-negative UTI and bacteremia on antibiotics. 3. Metabolic acidosis secondary to acute kidney injury and IV fluids. Also component of lactic acidosis. On oral bicarbonate. 4. Chronic kidney disease stage IIIa with baseline creatinine in the range of 1-1.5 in 2018. Etiology is likely nephrosclerosis. 5. Hypertension with chronic kidney disease. Plan: Maintain IV fluids - decrease rate to 50 mL an hour. Continue to hold losartan for now. Avoid nephrotoxins. Follow-up cultures. Continue to monitor renal function and urine output. Increase dose of hydralazine. Morning labs pending.
[2021-10-15] MEDS: buPROPion XL 150 MG TAB.ER.24H PO SCH (10:55)
[2021-10-15 11:12] LABS: Anion Gap 11.8 mmol/L (10.00-18.00); BUN/Creat Ratio 13.71 Ratio (12.00-20.00); Blood Urea Nitrogen 28.8 mg/dL (9.0-27.0); C Reactive Protein 17.2 mg/dL (0.00-0.80); Calcium 8.9 mg/dL (8.7-10.3); Carbon Dioxide 18.2 mmol/L (20.0-27.5); Magnesium 1.9 mg/dL (1.5-2.4); Non-African American GFR(CKD) 22.5 (60.0-200.0); Potassium 4.1 mmol/L (3.5-5.5)
[2021-10-15 11:41] LABS: Basophils # (A) 0.05 X 10*3/uL (0.00-0.10); Basophils % (A) 0.6 %; Eosinophils # (A) 0.09 X 10*3/uL (0.04-0.35); HCT 36.1 % (37.2-46.3); HGB 11.2 g/dL (12.0-15.0); Immature Grans, Automated 0.7 %; Lymphocytes # (A) 1.35 X 10*3/uL (0.90-5.00); Lymphocytes % (A) 15.1 %; MCH 29.8 pg (27.0-32.0); Mean Platelet Volume 11.6 fL (9.5-12.2); Monocytes # (A) 0.69 X 10*3/uL (0.20-1.00); Monocytes % (A) 7.7 %; NRBC Per 100 WBC 0 /100 WBCS (0.0-0.0); Neutrophils # (A) 6.73 X 10*3/uL (1.80-7.70); Neutrophils % (A) 74.9 %; Platelet Count 296 X 10*3/uL (140-440); RBC 3.76 X 10*6/uL (4.10-5.20); RDW 13.2 % (11.5-14.5); WBC 8.97 X 10*3/uL (4.50-10.00)
[2021-10-15 16:58] LABS: Appearance,Urine Cloudy (Clear); Bilirubin,Urine Negative (Negative); Blood,Urine Moderate (Negative); Color,Urine Light Yellow; Glucose,Urine (UA) Trace (Negative); Ketones,Urine Negative (Negative); Leukocyte Esterase,Urine Moderate (Negative); Mucus,Urine Rare /hpf; Nitrite,Urine Negative (Negative); Protein,Urine 3+ (Negative); RBC,Urine 3 /hpf (0-5); Specific Gravity,Urine 1.007 (1.001-1.035); Squamous Epithelial Cell,Urine 1 /hpf (0-4); Urobilinogen,Urine <2.0 mg/dL (<2.0); WBC,Urine 50 /hpf (0-5)
[2021-10-15] MEDS: hydrALAZINE HCL 50 MG TAB PO SCH ×2 (17:33→21:05)
[2021-10-15] MEDS: FENOFIBRATE 160 MG TAB PO SCH (20:49)
[2021-10-15] MEDS: FAMOTIDINE 20 MG TAB PO SCH (20:49)
[2021-10-16] MEDS: SODIUM CHLORIDE 0.9% 1,000 ML IV SCH (05:13)
[2021-10-16] MEDS: LEVOTHYROXINE 100 MCG TAB PO SCH (05:13)
[2021-10-16] MEDS: HEPARIN SODIUM,PORCINE/PF 5,000 UNIT/0.5 ML SYRINGE SQ SCH ×2 (06:58→21:51)
[2021-10-16] MEDS: hydrALAZINE HCL 50 MG TAB PO SCH ×3 (06:59→21:51)
[2021-10-16] MEDS: amLODIPine 5 MG TAB PO SCH ×2 (06:59→21:51)
[2021-10-16] MEDS: buPROPion XL 150 MG TAB.ER.24H PO SCH (06:59)
[2021-10-16] MEDS: METOPROLOL SUCCINATE (ER) 50 MG TAB.ER.24H PO SCH (06:59)
--- NOTE | 2021-10-16 09:49 | P.PN ---
Subjective Patient is seen for follow-up for acute kidney injury and top of chronic kidney disease. No significant complaints today Serum creatinine has been staying around 2.1 mg/dL. Patient is maintained on IV fluids Urine and blood cultures are growing gram-negative bacilli. Objective - Vital Signs Vital signs: Vital Signs Temp 100.6 F H 10/16/21 06:53 Pulse 85 10/16/21 06:53 Resp 16 10/16/21 06:53 BP 164/70 10/16/21 06:53 Pulse Ox 97 10/16/21 06:53 FiO2 Intake & Output 10/15/21 10/16/21 10/16/21 18:59 06:59 18:59 Intake Total 888 Balance 888 Intake: Oral 888 Other: Voiding Method Toilet Toilet Toilet # Voids 4 3 1 - Exam Patient is awake, comfortable, not in any acute distress Alert oriented 3 Examination of the heart S1 and S2 Examination lungs bilateral breath sounds are heard Abdomen is soft nontender Examination lower extremity shows no significant edema - Labs CBC & Chem 7: 10/15/21 07:34 10/15/21 07:34 Labs: Abnormal Lab Results - Last 24 Hours (Table) 10/15/21 10/15/21 10/15/21 Range/Units 07:34 07:34 16:05 RBC 3.76 L (4.10-5.20) X 10*6/uL Hgb 11.2 L (12.0-15.0) g/dL Hct 36.1 L (37.2-46.3) % MCHC 31.0 L (32.0-37.0) g/dL Immature Gran # 0.06 H (0.00-0.04) X 10*3/uL Carbon Dioxide 18.2 L (20.0-27.5) mmol/L BUN 28.8 H (9.0-27.0) mg/dL Creatinine 2.1 H (0.6-1.5) mg/dL Est GFR (CKD-EPI)AfAm 26.0 L (60.0-200.0) Est GFR (CKD-EPI)NonAf 22.5 L (60.0-200.0) Glucose 136 H (70-110) mg/dL C-Reactive Protein 17.20 H (0.00-0.80) mg/dL Urine Appearance Cloudy H (Clear) Urine Protein 3+ H (Negative) Urine Glucose (UA) Trace H (Negative) Urine Blood Moderate H (Negative) Ur Leukocyte Esterase Moderate H (Negative) Urine WBC 50 H (0-5) /hpf Urine Mucus Rare H (None) /hpf Microbiology - Last 24 Hours (Table) 10/15/21 16:05 Urine Culture - Preliminary Urine,Voided 10/12/21 21:45 Blood Culture Gram Stain - Preliminary Blood Blood Culture - Preliminary Coagulase Negative Staph 10/12/21 19:35 Urine Culture - Final Urine,Voided Escherichia coli 10/12/21 22:00 Blood Culture Gram Stain - Preliminary Blood Blood Culture - Preliminary Escherichia coli Coagulase Negative Staph 10/12/21 21:45 Blood Culture Gram Stain - Preliminary Blood Blood Culture - Preliminary Escherichia coli Coagulase Negative Staph Assessment and Plan Assessment: 1. Acute kidney injury secondary to ATN from sepsis. Serum creatinine staying at about 2.1 mg/dL. Previous creatinine was 1.1-1.5 mg/dL in 2018. No obstruction noted on imaging studies 2. CK D stage III a with baseline creatinine 1-1.5 mg/dL 2018 secondary to nephrosclerosis 3. Severe sepsis secondary to gram-negative UTI and bacteremia, maintained on antibiotics 4. Metabolic acidosis associated with acute kidney injury and IV fluids as well as a component of lactic acidosis, currently maintained on oral bicarb 5. Hypertension with CK D Plan: Continue to encourage increase oral intake Maintained on IV fluids Continue to hold off on angiotensin receptor blockers for now. Follow-up on labs from today.
[2021-10-16] MEDS: LACTATED RINGERS 1,000 ML IV SCH (09:56)
[2021-10-16 11:58] LABS: African American GFR (CKD) 27.6 (60.0-200.0); Anion Gap 13.6 mmol/L (10.00-18.00); BUN/Creat Ratio 15.85 Ratio (12.00-20.00); Blood Urea Nitrogen 31.7 mg/dL (9.0-27.0); Calcium 8.7 mg/dL (8.7-10.3); Carbon Dioxide 17.4 mmol/L (20.0-27.5); Magnesium 1.8 mg/dL (1.5-2.4); Non-African American GFR(CKD) 23.8 (60.0-200.0); Potassium 4.4 mmol/L (3.5-5.5)
--- NOTE | 2021-10-16 12:13 | P.PN ---
Progress Note - Text Progress Note Date: 10/16/21 The patient feels well. Her only complaint is mild fatigue. Urine and blood cultures have shown E. coli. Her most recent temperature was 100.6F. She is urologically stable for discharge once she remains consistently afebrile. I intend to see her in the office in several weeks to address the issue of her recurrent UTIs.
[2021-10-16] MEDS: guaiFENesin SYRUP 100MG/5ML 200 MG/10 ML CUP PO PRN ×2 (16:53→23:39)
--- NOTE | 2021-10-16 20:47 | P.PN ---
Subjective Progress Note Date: 10/15/21 Principal diagnosis: UTI and bacteremia Patient is a 76-year-old female presenting to the hospital with weakness, did have a dark cloudy urine concern for a symptomatic urinary tract infection now with evidence of gram-negative bacteremia. on today's evaluation that is 10/14/2021, the patient is afebrile, the patient is breathing comfortably, denies having any chest pain shortness of breath or cough no nausea no vomiting no abdominal pain no diarrhea or any urinary symptoms has improved Objective - Vital Signs Vital signs: Vital Signs Temp 98.8 F 10/15/21 05:42 Pulse 86 10/15/21 05:42 Resp 15 10/15/21 05:42 BP 149/71 10/15/21 05:42 Pulse Ox 95 10/15/21 05:42 FiO2 Intake & Output 10/14/21 10/15/21 10/15/21 18:59 06:59 18:59 Intake Total 1000 296 Balance 1000 296 Intake: Oral 1000 296 Other: Voiding Method Toilet Toilet Toilet # Voids 3 - Exam GENERAL DESCRIPTION: An elderly female up in bed in no distress RESPIRATORY SYSTEM: Unlabored breathing , decreased breath sounds at bases HEART: S1 S2 regular rate and rhythm , ABDOMEN: Soft , no tenderness EXTREMITIES: No edema feet - Labs CBC & Chem 7: 10/15/21 07:34 10/16/21 07:01 Labs: Abnormal Lab Results - Last 24 Hours (Table) 10/14/21 10/15/21 10/15/21 Range/Units 06:54 07:34 07:34 RBC 3.76 L (4.10-5.20) X 10*6/uL Hgb 11.2 L (12.0-15.0) g/dL Hct 36.1 L (37.2-46.3) % MCHC 31.0 L (32.0-37.0) g/dL Immature Gran # 0.06 H (0.00-0.04) X 10*3/uL Chloride 110 H (96-109) mmol/L Carbon Dioxide 17.0 L 18.2 L (20.0-27.5) mmol/L BUN 33.1 H 28.8 H (9.0-27.0) mg/dL Creatinine 2.2 H 2.1 H (0.6-1.5) mg/dL Est GFR (CKD-EPI)AfAm 24.6 L 26.0 L (60.0-200.0) Est GFR (CKD-EPI)NonAf 21.2 L 22.5 L (60.0-200.0) Glucose 136 H (70-110) mg/dL Calcium 8.4 L (8.7-10.3) mg/dL C-Reactive Protein 17.20 H (0.00-0.80) mg/dL Microbiology - Last 24 Hours (Table) 10/12/21 22:00 Blood Culture Gram Stain - Preliminary Blood Blood Culture - Preliminary Escherichia coli Coagulase Negative Staph 10/12/21 21:45 Blood Culture Gram Stain - Preliminary Blood Blood Culture - Preliminary Escherichia coli Coagulase Negative Staph 10/12/21 19:35 Urine Culture - Preliminary Urine,Voided Gram Neg Bacilli 10/12/21 21:45 Blood Culture Gram Stain - Preliminary Blood Assessment and Plan (1) Positive blood cultures Current Visit: Yes Status: Acute Code(s): R78.81 - BACTEREMIA SNOMED Code(s): 447274610 (2) Urinary tract infection Current Visit: Yes Status: Acute Code(s): N39.0 - URINARY TRACT INFECTION, SITE NOT SPECIFIED SNOMED Code(s): 84079555 Plan: 1patient with gram-negative bacteremia in this patient did have urinary symptoms positive UA likely source is urinary CT abdominal pelvis did not show any acute abnormality. 2 patient blood culture with E. coli and staph epi, staph epi is likely contaminat blood culture has been repeated. 3urine culture showing an ESBL E. coli however the patient has improved without any treatment for it we will repeat a UA and culture. 4continue the Rocephin 2 g daily Time with Patient: Less than 30
--- NOTE | 2021-10-16 20:49 | P.PN ---
Subjective Progress Note Date: 10/16/21 Principal diagnosis: UTI and bacteremia Patient is a 76-year-old female presenting to the hospital with weakness, did have a dark cloudy urine concern for a symptomatic urinary tract infection now with evidence of gram-negative bacteremia. on today's evaluation that is 10/16/2021, the patient did have a low-grade fever 100.7F, the patient is breathing comfortably, the patient denies having any chest pain shortness of breath or cough no nausea no vomiting no abdominal pain no diarrhea and the patient urinary symptoms has improved Objective - Vital Signs Vital signs: Vital Signs Temp 98.4 F 10/16/21 13:53 Pulse 83 10/16/21 13:53 Resp 16 10/16/21 13:53 BP 157/71 10/16/21 13:53 Pulse Ox 96 10/16/21 13:53 FiO2 Intake & Output 10/16/21 10/16/21 10/17/21 06:59 18:59 06:59 Other: Voiding Method Toilet Toilet # Voids 3 1 - Exam GENERAL DESCRIPTION: An elderly female up in bed in no distress RESPIRATORY SYSTEM: Unlabored breathing , decreased breath sounds at bases HEART: S1 S2 regular rate and rhythm , ABDOMEN: Soft , no tenderness EXTREMITIES: No edema feet - Labs CBC & Chem 7: 10/15/21 07:34 10/16/21 07:01 Labs: Abnormal Lab Results - Last 24 Hours (Table) 10/16/21 Range/Units 07:01 Carbon Dioxide 17.4 L (20.0-27.5) mmol/L BUN 31.7 H (9.0-27.0) mg/dL Creatinine 2.0 H (0.6-1.5) mg/dL Est GFR (CKD-EPI)AfAm 27.6 L (60.0-200.0) Est GFR (CKD-EPI)NonAf 23.8 L (60.0-200.0) Glucose 113 H (70-110) mg/dL Microbiology - Last 24 Hours (Table) 10/12/21 22:00 Blood Culture Gram Stain - Final Blood Blood Culture - Final Escherichia coli Staphylococcus epidermidis 10/12/21 21:45 Blood Culture Gram Stain - Final Blood Blood Culture - Final Escherichia coli Staphylococcus epidermidis 10/12/21 21:45 Blood Culture Gram Stain - Final Blood Blood Culture - Final Staphylococcus epidermidis 10/15/21 07:34 Blood Culture - Preliminary Blood No Growth after 24 hours 10/15/21 16:05 Urine Culture - Preliminary Urine,Voided Assessment and Plan (1) Positive blood cultures Current Visit: Yes Status: Acute Code(s): R78.81 - BACTEREMIA SNOMED Code(s): 653339231 (2) Urinary tract infection Current Visit: Yes Status: Acute Code(s): N39.0 - URINARY TRACT INFECTION, SITE NOT SPECIFIED SNOMED Code(s): 02281370 Plan: 1patient with gram-negative bacteremia in this patient did have urinary symptoms positive UA likely source is urinary CT abdominal pelvis did not show any acute abnormality. 2 patient blood culture with E. coli and staph epi, staph epi is likely contaminat blood culture has been negative so far 3urine culture showing an ESBL E. coli however the patient has improved without any treatment for it, repeat UA has improved 4patient to continue the Rocephin 2 g daily while inpatient finishing therapy with oral Cipro
[2021-10-16] MEDS: FENOFIBRATE 160 MG TAB PO SCH (21:51)
[2021-10-16] MEDS: FAMOTIDINE 20 MG TAB PO SCH (21:51)
[2021-10-16] MEDS: ALPRAZolam 0.25 MG TAB PO PRN (23:39)
[2021-10-17] MEDS: LEVOTHYROXINE 100 MCG TAB PO SCH (05:51)
[2021-10-17] MEDS: amLODIPine 5 MG TAB PO SCH (07:14)
[2021-10-17] MEDS: hydrALAZINE HCL 50 MG TAB PO SCH ×3 (07:14→15:00)
[2021-10-17] MEDS: HEPARIN SODIUM,PORCINE/PF 5,000 UNIT/0.5 ML SYRINGE SQ SCH ×2 (07:14→07:18)
[2021-10-17] MEDS: buPROPion XL 150 MG TAB.ER.24H PO SCH (07:14)
[2021-10-17] MEDS: METOPROLOL SUCCINATE (ER) 50 MG TAB.ER.24H PO SCH (07:14)
[2021-10-17] MEDS: LACTATED RINGERS 1,000 ML IV SCH (09:12)
[2021-10-17 09:17] LABS: African American GFR (CKD) 25.9 (60.0-200.0); Anion Gap 19.7 mmol/L (10.00-18.00); BUN/Creat Ratio 13.65 Ratio (12.00-20.00); Blood Urea Nitrogen 28.8 mg/dL (9.0-27.0); C Reactive Protein 6.4 mg/dL (0.00-0.80); Calcium 8.6 mg/dL (8.7-10.3); Carbon Dioxide 17.5 mmol/L (20.0-27.5); Non-African American GFR(CKD) 22.3 (60.0-200.0); Potassium 4.4 mmol/L (3.5-5.5)
[2021-10-17 09:33] LABS: Basophils # (A) 0.04 X 10*3/uL (0.00-0.10); Basophils % (A) 0.6 %; Eosinophils # (A) 0.11 X 10*3/uL (0.04-0.35); Eosinophils % (A) 1.6 %; HCT 35.6 % (37.2-46.3); HGB 11.1 g/dL (12.0-15.0); Immature Grans, Automated 1.6 %; Lymphocytes # (A) 0.92 X 10*3/uL (0.90-5.00); MCH 30.2 pg (27.0-32.0); MCHC 31.2 g/dL (32.0-37.0); Mean Platelet Volume 11.1 fL (9.5-12.2); Monocytes # (A) 0.78 X 10*3/uL (0.20-1.00); NRBC Per 100 WBC 0 /100 WBCS (0.0-0.0); Neutrophils % (A) 72.2 %; Platelet Count 321 X 10*3/uL (140-440); RBC 3.67 X 10*6/uL (4.10-5.20); RDW 13.2 % (11.5-14.5); WBC 7.06 X 10*3/uL (4.50-10.00)
--- NOTE | 2021-10-17 10:14 | P.PN ---
Subjective Progress Note Date: 10/15/21 76 years old female with past medical history of hyperlipidemia, hypothyroidism, hypertension, depression hypertension She presents because of severe lower abdominal cramping pain about 10/10 yesterday it was radiating to the back and felt like a cramp like something squeezing. Nonradiating to somewhere else. So patient decided to come to emergency room and her pain subsided once she started on IV fluids, currently she is pleasant and smiling and talking to her daughter at bedside. She looks comfortable and her pain is a 3/10 in the lower abdomen. No nausea vomiting or diarrhea. No dysuria or urgency, no headache or weakness or numbness. Also patient was a bit confused yesterday per daughter now she is back to baseline. He denies smoking, alcohol or illicit drugs. She denies any leg weakness or back pain. She is working well to the bathroom. Vitals are stable and patient is afebrile. Showing leukocytosis of 16.1. Rest of CBC is unremarkable. INR is 1.0. Sodium 131, creatinine is elevated at 1.8, compared to baseline of 1.0-1.1 and 2018. Moderately elevated lactic acid 2.6, liver enzymes mostly elevated with AST 92 and ALT 57 and bilirubin is normal 0.5. Lipase normal at 119. Urine analysis is strongly suspicious for infection EKG showing normal sinus rhythm at 81, with no significant ST-T changes CT of the abdomen and pelvis without contrast: Multiple renal cysts, no renal obstruction, previous surgery. No acute abnormality within the abdomen and pelvis. Normal appendix In the emergency room patient received normal saline, pain medication and started on antibiotics with ceftriaxone Objective - Vital Signs Vital signs: Vital Signs Temp 98.4 F 10/15/21 14:00 Pulse 79 10/15/21 14:00 Resp 16 10/15/21 14:00 BP 160/72 10/15/21 14:00 Pulse Ox 97 10/15/21 14:00 FiO2 Intake & Output 10/14/21 10/15/21 10/15/21 18:59 06:59 18:59 Intake Total 1000 592 Balance 1000 592 Intake: Oral 1000 592 Other: Voiding Method Toilet Toilet Toilet # Voids 3 4 - Exam GENERAL: The patient is alert and oriented x3, not in any acute distress. Well developed, well nourished. HEENT: Pupils are round and equally reacting to light. EOMI. No scleral icterus. No conjunctival pallor. Normocephalic, atraumatic. No pharyngeal erythema. No thyromegaly. CARDIOVASCULAR: S1 and S2 present. No murmurs, rubs, or gallops. PULMONARY: Chest is clear to auscultation, no wheezing or crackles. ABDOMEN: Soft, nontender, nondistended, normoactive bowel sounds. No palpable organomegaly. MUSCULOSKELETAL: No joint swelling or deformity. EXTREMITIES: No cyanosis, clubbing, or pedal edema. NEUROLOGICAL: Gross neurological examination did not reveal any focal deficits. SKIN: No rashes. no petechiae. - Labs CBC & Chem 7: 10/17/21 04:53 10/17/21 04:53 Labs: Abnormal Lab Results - Last 24 Hours (Table) 10/14/21 10/15/21 10/15/21 Range/Units 06:54 07:34 07:34 RBC 3.76 L (4.10-5.20) X 10*6/uL Hgb 11.2 L (12.0-15.0) g/dL Hct 36.1 L (37.2-46.3) % MCHC 31.0 L (32.0-37.0) g/dL Immature Gran # 0.06 H (0.00-0.04) X 10*3/uL Chloride 110 H (96-109) mmol/L Carbon Dioxide 17.0 L 18.2 L (20.0-27.5) mmol/L BUN 33.1 H 28.8 H (9.0-27.0) mg/dL Creatinine 2.2 H 2.1 H (0.6-1.5) mg/dL Est GFR (CKD-EPI)AfAm 24.6 L 26.0 L (60.0-200.0) Est GFR (CKD-EPI)NonAf 21.2 L 22.5 L (60.0-200.0) Glucose 136 H (70-110) mg/dL Calcium 8.4 L (8.7-10.3) mg/dL C-Reactive Protein 17.20 H (0.00-0.80) mg/dL Microbiology - Last 24 Hours (Table) 10/12/21 19:35 Urine Culture - Final Urine,Voided Escherichia coli 10/12/21 22:00 Blood Culture Gram Stain - Preliminary Blood Blood Culture - Preliminary Escherichia coli Coagulase Negative Staph 10/12/21 21:45 Blood Culture Gram Stain - Preliminary Blood Blood Culture - Preliminary Escherichia coli Coagulase Negative Staph Assessment and Plan Assessment: Acute urinary tract infection gram-negative bacteremia, she has another positive blood culture for gram- positive cocci Sepsis secondary to above Multiple bilateral renal cysts on renal ultrasound, the largest is 3.5 cm on the right side and 3.7 cm on the left side Abdominal pain, secondary to above Acute kidney injury Hypovolemic hyponatremia Mild transaminitis Hyperlipidemia Hypothyroidism History of depression, not an active issue Obesity with BMI of 54.4 Plan: She is a pleasant 76 years old female who presents with UTI Continue with ceftriaxone And a blood culture consult 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 Continue same treatment. Continue with symptomatic treatment. Resume home medication. Monitor lytes and vitals. DVT and GI prophylaxis. Further recommendations as per clinical course of the patient DVT prophylaxis: Subcutaneous heparin GI Prophylaxis: Pepcid PT/OT: Pending Prognosis is guarded
--- NOTE | 2021-10-17 10:26 | P.PN ---
Subjective Progress Note Date: 10/16/21 Principal diagnosis: Acute urinary tract infection Gram-negative bacteremia Sepsis 76 years old female with past medical history of hyperlipidemia, hypothyroidism, hypertension, depression hypertension She presents because of severe lower abdominal cramping pain about 10/10 yesterday it was radiating to the back and felt like a cramp like something sq ueezing. Nonradiating to somewhere else. So patient decided to come to emergency room and her pain subsided once she started on IV fluids, currently she is pleasant and smiling and talking to her daughter at bedside. She looks comfortable and her pain is a 3/10 in the lower abdomen. No nausea vomiting or diarrhea. No dysuria or urgency, no headache or weakness or numbness. Also patient was a bit confused yesterday per daughter now she is back to baseline. He denies smoking, alcohol or illicit drugs. She denies any leg weakness or back pain. She is working well to the bathroom. Vitals are stable and patient is afebrile. Showing leukocytosis of 16.1. Rest of CBC is unremarkable. INR is 1.0. Sodium 131, creatinine is elevated at 1.8, compared to baseline of 1.0-1.1 and 2018. Moderately elevated lactic acid 2.6, liver enzymes mostly elevated with AST 92 and ALT 57 and bilirubin is normal 0.5. Lipase normal at 119. Urine analysis is strongly suspicious for infection EKG showing normal sinus rhythm at 81, with no significant ST-T changes CT of the abdomen and pelvis without contrast: Multiple renal cysts, no renal obstruction, previous surgery. No acute abnormality within the abdomen and pelvis. Normal appendix In the emergency room patient received normal saline, pain medication and started on antibiotics with ceftriaxone 10/16/2021 Patient is seen and evaluated in room at bedside; patient did have a low-grade fever 100.7F, the patient is breathing comfortably, the patient denies having any chest pain shortness of breath or cough no nausea no vomiting no abdominal pain no diarrhea and the patient urinary symptoms have improved Vital signs are reviewed and stable with temperature of 98.3, pulse 83 minutes patient 16 and blood pressure 157/71 Lab review shows sodium of 139, potassium 4.4, BUN/creatinine of 31.7/2.0 and glucose of 113 Patient remains on Rocephin 2 g IV daily for blood culture with E. coli and staph; staff is felt to be a contaminant; urine culture reveals ESBL positive E. coli Objective - Vital Signs Vital signs: Vital Signs Temp 100.6 F H 10/16/21 06:53 Pulse 85 10/16/21 06:53 Resp 16 10/16/21 06:53 BP 164/70 10/16/21 06:53 Pulse Ox 97 10/16/21 06:53 FiO2 Intake & Output 10/15/21 10/16/21 10/16/21 18:59 06:59 18:59 Intake Total 888 Balance 888 Intake: Oral 888 Other: Voiding Method Toilet Toilet Toilet # Voids 4 3 1 - Exam GENERAL: The patient is alert and oriented x3, not in any acute distress. Well developed, well nourished. HEENT: Pupils are round and equally reacting to light. EOMI. No scleral icterus. No conjunctival pallor. Normocephalic, atraumatic. No pharyngeal erythema. No thyromegaly. CARDIOVASCULAR: S1 and S2 present. No murmurs, rubs, or gallops. PULMONARY: Chest is clear to auscultation, no wheezing or crackles. ABDOMEN: Soft, nontender, nondistended, normoactive bowel sounds. No palpable organomegaly. MUSCULOSKELETAL: No joint swelling or deformity. EXTREMITIES: No cyanosis, clubbing, or pedal edema. NEUROLOGICAL: Gross neurological examination did not reveal any focal deficits. SKIN: No rashes. no petechiae. - Labs CBC & Chem 7: 10/17/21 04:53 10/17/21 04:53 Labs: Abnormal Lab Results - Last 24 Hours (Table) 10/15/21 10/15/21 10/15/21 Range/Units 07:34 07:34 16:05 RBC 3.76 L (4.10-5.20) X 10*6/uL Hgb 11.2 L (12.0-15.0) g/dL Hct 36.1 L (37.2-46.3) % MCHC 31.0 L (32.0-37.0) g/dL Immature Gran # 0.06 H (0.00-0.04) X 10*3/uL Carbon Dioxide 18.2 L (20.0-27.5) mmol/L BUN 28.8 H (9.0-27.0) mg/dL Creatinine 2.1 H (0.6-1.5) mg/dL Est GFR (CKD-EPI)AfAm 26.0 L (60.0-200.0) Est GFR (CKD-EPI)NonAf 22.5 L (60.0-200.0) Glucose 136 H (70-110) mg/dL C-Reactive Protein 17.20 H (0.00-0.80) mg/dL Urine Appearance Cloudy H (Clear) Urine Protein 3+ H (Negative) Urine Glucose (UA) Trace H (Negative) Urine Blood Moderate H (Negative) Ur Leukocyte Esterase Moderate H (Negative) Urine WBC 50 H (0-5) /hpf Urine Mucus Rare H (None) /hpf Microbiology - Last 24 Hours (Table) 10/15/21 07:34 Blood Culture - Preliminary Blood No Growth after 24 hours 10/15/21 16:05 Urine Culture - Preliminary Urine,Voided 10/12/21 21:45 Blood Culture Gram Stain - Preliminary Blood Blood Culture - Preliminary Coagulase Negative Staph 10/12/21 19:35 Urine Culture - Final Urine,Voided Escherichia coli 10/12/21 22:00 Blood Culture Gram Stain - Preliminary Blood Blood Culture - Preliminary Escherichia coli Coagulase Negative Staph 10/12/21 21:45 Blood Culture Gram Stain - Preliminary Blood Blood Culture - Preliminary Escherichia coli Coagulase Negative Staph Assessment and Plan Assessment: Acute urinary tract infection gram-negative bacteremia, she has another positive blood culture for gram- positive cocci Sepsis secondary to above Multiple bilateral renal cysts on renal ultrasound, the largest is 3.5 cm on the right side and 3.7 cm on the left side Abdominal pain, secondary to above Acute kidney injury Hypovolemic hyponatremia Mild transaminitis Hyperlipidemia Hypothyroidism History of depression, not an active issue Obesity with BMI of 54.4 Plan: She is a pleasant 76 years old female who presents with UTI Continue with ceftriaxone And 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 Continue same treatment. Continue with s ymptomatic treatment. Resume home medication. Monitor lytes and vitals. DVT and GI prophylaxis. Further recommendations as per clinical course of the patient DVT prophylaxis: Subcutaneous heparin GI Prophylaxis: Pepcid PT/OT: Pending Prognosis is guarded
[2021-10-17] MEDS ORDERED: FUROSEMIDE 10 MG/ML 2 ML VIAL IV ONE (11:19)
[2021-10-17] MEDS: ACETAMINOPHEN TAB 325 MG TAB PO PRN (11:19)
--- NOTE | 2021-10-17 11:19 | P.PN ---
Subjective Patient is seen for follow-up for acute kidney injury and top of chronic kidney disease. No significant complaints today Serum creatinine has been staying around 2.1 mg/dL. Patient is maintained on IV fluids Urine and blood cultures are growing gram-negative bacilli. Complaining of mild shortness of breath today Objective - Vital Signs Vital signs: Vital Signs Temp 99.7 F H 10/17/21 07:33 Pulse 92 10/17/21 07:33 Resp 16 10/17/21 07:33 BP 177/67 10/17/21 07:33 Pulse Ox 94 L 10/17/21 07:33 FiO2 Intake & Output 10/16/21 10/17/21 10/17/21 18:59 06:59 18:59 Intake Total 240 Balance 240 Intake: Oral 240 Other: Voiding Method Toilet Toilet # Voids 1 4 1 - Exam Patient is awake, comfortable, not in any acute distress Alert oriented 3 Examination of the heart S1 and S2 Examination lungs bilateral breath sounds are heard, wheezing heard bilaterally Abdomen is soft nontender Examination lower extremity shows no significant edema - Labs CBC & Chem 7: 10/17/21 04:53 10/17/21 04:53 Labs: Abnormal Lab Results - Last 24 Hours (Table) 10/16/21 10/17/21 10/17/21 Range/Units 07:01 04:53 04:53 RBC 3.67 L (4.10-5.20) X 10*6/uL Hgb 11.1 L (12.0-15.0) g/dL Hct 35.6 L (37.2-46.3) % MCHC 31.2 L (32.0-37.0) g/dL Immature Gran # 0.11 H (0.00-0.04) X 10*3/uL Carbon Dioxide 17.4 L 17.5 L (20.0-27.5) mmol/L Anion Gap 19.70 H (10.00-18.00) mmol/L BUN 31.7 H 28.8 H (9.0-27.0) mg/dL Creatinine 2.0 H 2.1 H (0.6-1.5) mg/dL Est GFR (CKD-EPI)AfAm 27.6 L 25.9 L (60.0-200.0) Est GFR (CKD-EPI)NonAf 23.8 L 22.3 L (60.0-200.0) Glucose 113 H (70-110) mg/dL Calcium 8.6 L (8.7-10.3) mg/dL C-Reactive Protein 6.40 H (0.00-0.80) mg/dL Microbiology - Last 24 Hours (Table) 10/15/21 07:34 Blood Culture - Preliminary Blood No Growth after 48 hours 10/15/21 16:05 Urine Culture - Final Urine,Voided 10/12/21 22:00 Blood Culture Gram Stain - Final Blood Blood Culture - Final Escherichia coli Staphylococcus epidermidis 10/12/21 21:45 Blood Culture Gram Stain - Final Blood Blood Culture - Final Escherichia coli Staphylococcus epidermidis 10/12/21 21:45 Blood Culture Gram Stain - Final Blood Blood Culture - Final Staphylococcus epidermidis Assessment and Plan Assessment: 1. Acute kidney injury secondary to ATN from sepsis. Serum creatinine staying at about 2.1 mg/dL. Previous creatinine was 1.1-1.5 mg/dL in 2018. No obstruction noted on imaging studies 2. CK D stage III a with baseline creatinine 1-1.5 mg/dL 2018 secondary to nephrosclerosis 3. Severe sepsis secondary to gram-negative UTI and bacteremia, maintained on antibiotics 4. Metabolic acidosis associated with acute kidney injury and IV fluids as well as a component of lactic acidosis, currently maintained on oral bicarb 5. Hypertension with CK D 6. Mild volume overload Plan: DC IV fluids IV Lasix 1 Add oral sodium bicarb
[2021-10-17 14:29] VITALS: BP 146/69; PULSE 72; RESP 18; TEMP 98.7
[2021-10-17] MEDS: guaiFENesin SYRUP 100MG/5ML 200 MG/10 ML CUP PO PRN (14:56)
[2021-10-17] MEDS ORDERED: SODIUM BICARBONATE TAB 650 MG TAB PO SCH (21:00)
== END 2021-10-17 16:31 | disposition home or self-care (01) | DRG 871 ==
LOC: EC 16:44 → 4SSUR 21:35
PROVIDERS: ADMIT Internal Medicine; ATTEND Internal Medicine
DX: A41.51 Sepsis due to Escherichia coli [E. coli] (principal); N17.0 Acute kidney failure with tubular necrosis; N39.0 Urinary tract infection, site not specified; E87.1 Hypo-osmolality and hyponatremia; E87.2 Acidosis; Z68.43 Body mass index [BMI] 50.0-59.9, adult; R65.20 Severe sepsis without septic shock; E03.9 Hypothyroidism, unspecified; E11.22 Type 2 diabetes mellitus with diabetic chronic kidney disease; E66.9 Obesity, unspecified; E78.5 Hyperlipidemia, unspecified; E86.1 Hypovolemia; R74.01 Elevation of levels of liver transaminase levels; E87.70 Fluid overload, unspecified; M54.50 Low back pain, unspecified; F32.A Depression, unspecified; I12.9 Hypertensive chronic kidney disease with stage 1 through stage 4 chronic kidney disease, or unspecified chronic kidney disease; N18.31 Chronic kidney disease, stage 3a; N28.1 Cyst of kidney, acquired; Z79.890 Hormone replacement therapy; Z79.899 Other long term (current) drug therapy; Z82.49 Family history of ischemic heart disease and other diseases of the circulatory system; Z85.43 Personal history of malignant neoplasm of ovary; Z87.440 Personal history of urinary (tract) infections; Z87.891 Personal history of nicotine dependence; Z90.710 Acquired absence of both cervix and uterus; Z88.1 Allergy status to other antibiotic agents
CPT/HCPCS: 36415; 74176; 76770; 80048; 80053; 81001; 82150; 83605; 83690; 83735; 84484; 85025; 85610; 85730; 86140; 87040; 87077; 87086; 87186; 93005; 96361; 96365; 96375; 99291

== ENCOUNTER 2022-10-22 15:39 | Observation (INO) | payer MEDICARE ==
--- NOTE | 2022-10-22 15:54 | ED ---
General Adult HPI - General Chief complaint: Shortness of Breath Stated complaint: CATH [id number] Time Seen by Provider: 10/22/22 15:46 Source: patient Mode of arrival: ambulatory Limitations: no limitations - History of Present Illness Initial comments: Patient presents to the ED with her son from dialysis for evaluation. Patient states that she normally gets dialyzed on Monday, Monday and Monday. Patient states that they were unable to dialyze her very well yesterday, so she was scheduled to go back in today for dialysis, but they were having trouble using her dialysis catheter, so they sent her to the emergency room. Patient states that she had her current dialysis catheter placed in July, and she states that it has been causing issues ever since then. Patient states that she feels more dyspneic than normal today. Patient admits to having worsening lower extremity edema today. Patient also states that she has had a cough for the past week or so. Patient denies having any pain, fever or chills, headache, focal numbnes s/weakness/neuro deficit, chest pain or pressure, hemoptysis, palpitations, dizziness, abdominal pain, nausea/vomiting/diarrhea, bloody or melanotic stool, dysuria or urinary symptoms (patient states that she still makes a small amount of urine daily), leg or calf pain, or any other symptoms or complaints. - Related Data Home Medications Medication Instructions Recorded Confirmed amLODIPine BESYLATE 5 mg PO BID 05/13/18 10/22/22 buPROPion XL [Wellbutrin XL] 150 mg PO DAILY 05/13/18 10/22/22 ALPRAZolam [Xanax] 0.375 mg PO DAILY PRN 10/12/21 10/22/22 Magnesium Chloride [Mag64] 64 mg PO HS 10/12/21 10/22/22 Ezetimibe [Zetia] 10 mg PO HS 06/13/22 10/22/22 Levothyroxine Sodium [Synthroid] 112 mcg PO DAILY 06/13/22 10/22/22 Acyclovir [Zovirax] 400 mg PO BID 07/18/22 10/22/22 Albuterol Inhaler [Ventolin Hfa 2 puff INHALATION RT-QID PRN 10/22/22 10/22/22 Inhaler] Metoclopramide [Reglan] 5 mg PO Q6H PRN 10/22/22 10/22/22 Metoprolol Succinate (ER) [Toprol 50 mg PO HS 10/22/22 10/22/22 XL] dexAMETHasone [Decadron] 40 mg PO TU 10/22/22 10/22/22 Previous Rx's Medication Instructions Recorded Ondansetron [Zofran] 4 mg PO Q8HR PRN #30 tab 07/22/22 Allergies Allergy/AdvReac Type Severity Reaction Status Date / Time tetracycline Allergy Rash/Hives, Verified 10/22/22 16:48 headache hydromorphone [From Dilaudid] AdvReac Severe Nausea & Verified 10/22/22 16:48 Vomiting azithromycin AdvReac Nausea & Verified 10/22/22 16:48 Vomiting Review of Systems ROS Statement: Those systems with pertinent positive or pertinent negative responses have been documented in the HPI. ROS Other: All systems not noted in ROS Statement are negative. Past Medical History Past Medical History: Eye Disorder, GERD/Reflux, Hypertension, Osteoarthritis (OA), Renal Disease, Thyroid Disorder, Vascular Disorder Additional Past Medical History / Comment(s): Ovarian cancer, chronic kidney disease (3B), PVD- left leg ., spinal stenosis, arthritis & spurs left hip., IBS., hx pancreatitis., occasional vertigo., left eye macular hole. History of Any Multi-Drug Resistant Organisms: None Reported Date of last positivie culture/infection: 10/12/21 ESBL E.coli MDRO Source:: Urine Past Surgical History: Cholecystectomy, Hysterectomy Additional Past Surgical History / Comment(s): trigger finger x5., carpal tunnel tahir., ganglion cyst Past Anesthesia/Blood Transfusion Reactions: Motion Sickness, Postoperative Nausea & Vomiting (PONV) Additional Past Anesthesia/Blood Transfusion Reaction / Comment(s): mother=ponv Past Psychological History: Anxiety, Depression Smoking Status: Former smoker Past Alcohol Use History: None Reported Past Drug Use History: None Reported - Past Family History Father Family Medical History: Coronary Artery Disease (CAD) Additional Family Medical History / Comment(s): states grandaughter= leukemia. grandmother=multiple myeloma General Exam Limitations: no limitations General appearance: alert Head exam: Present: normocephalic Eye exam: Present: normal appearance ENT exam: Present: mucous membranes dry Neck exam: Present: other (Trachea is in midline) Respiratory exam: Present: other (Mild respiratory distress, diminished breath sounds bilaterally, right-sided dialysis catheter). Absent: wheezes, stridor Cardiovascular Exam: Present: normal rhythm, tachycardia, normal heart sounds, other (Normal radial pulses bilaterally) GI/Abdominal exam: Present: soft. Absent: distended, tenderness, guarding Extremities exam: Present: other (Negative Homans sign bilaterally; 1+ bilateral lower extremity pitting edema). Absent: tenderness, calf tenderness Neurological exam: Present: alert, oriented X3 Psychiatric exam: Present: normal affect, normal mood Skin exam: Present: warm, dry, intact, normal color Course Vital Signs 10/22/22 10/22/22 10/22/22 15:40 15:43 16:01 Temperature 98 F Pulse Rate 108 H Respiratory 24 22 Rate Blood Pressure 120/89 O2 Sat by Pulse 87 L 95 Oximetry 10/22/22 17:14 Temperature 98.2 F Pulse Rate 94 Respiratory 19 Rate Blood Pressure 158/69 O2 Sat by Pulse 95 Oximetry - Reevaluation(s) Reevaluation #1: 10/22/22 17:54 Case, H&P and test results were discussed with Dr. Yoo. He accepts hospital admission. He agrees with nephrology consultation and recommends vascular surgery consultation as well. He has no further recommendations at this time. 10/22/22 18:13 Case, H&P, test results and my discussion with Dr. Yoo as above were discussed with Dr. King (nephrology). He recommends consulted Dr. Donaldson (al scular surgery) for dialysis access placement. He has no further recommendations at this time. 10/22/22 18:17 Case, H&P, test results and my discussions as above were discussed with Dr. Donaldson (vascular surgery). He asks to keep the patient NPO after midnight, and he states that he will plan to place a dialysis catheter in the pipelines laborer in the morning. He has no further recommendations at this time. 10/22/22 18:25 Patient denies development of any new symptoms while in the ED. Patient and tiffani patrick are aware of the patient's test results and my discussions as above, and they all agree with hospital admission at this time. EKG Findings - EKG Comments: EKG Findings:: ED physician interpretation (interpreted by me): EKG is limited due to motion, suspected sinus tachycardia, ventricular rate 103 bpm, no ectopy, normal VA and QRS intervals, normal QT interval, no definite ST or T-wave abnormality, normal axis Medical Decision Making - Medical Decision Making Was pt. sent in by a medical professional or institution (, [facility], [facility], urgent care, hospital, or intermediate...) When possible be specific @ -Patient was sent to the ED from dialysis. Did you speak to anyone other than the patient for history (EMS, parent, family, police, friend...)? What history was obtained from this source @ -No Did you review nursing and triage notes (agree or disagree)? Why? @ -I reviewed and agree with nursing and triage notes Were old charts reviewed (outside hosp., previous admission, EMS record, old EKG, old radiological studies, urgent care reports/EKG's, intermediate records)? Report findings @ -No old charts were reviewed Differential Diagnosis (chest pain, altered mental status, abdominal pain women, abdominal pain men, vaginal bleeding, weakness, fever, dyspnea, syncope, headache, dizziness, GI bleed, back pain, seizure, CVA, palpatations, mental health, musculoskeletal)? @ -Differential Dyspnea: Coronary syndrome, arrhythmia, tamponade, asthma, COPD, pneumonia, pneumothorax, pulmonary effusion, chronic renal failure, fluid overload, pulmonary edema, electrolyte abnormality, neuromuscular, this is not meant to be an all-inclusive list. EKG interpreted by me (3pts min.). @ -As above X-rays interpreted by me (1pt min.). @ -Chest x-rays were reviewed myself and show dialysis catheter and no definite acute abnormality. I agree with the radiologist's interpretations as above. CT interpreted by me (1pt min.). @ -None done U/S interpreted by me (1pt. min.). @ -None done What testing was considered but not performed or refused? (CT, X-rays, U/S, labs)? Why? @ -None What meds were considered but not given or refused? Why? @ -None Did you discuss the management of the patient with other professionals (professionals i.e. LESLIE Mayes, [facility] F[employer], lab, RT, psych nurse, social services director, tour conductor, teacher, commissary officer, high risk case manager)? Give summary @ -As above Was smoking cessation discussed for >3mins.? @ -No Was critical care preformed (if so, how long)? @ -Yes, 30 minutes. Were there social determinants of health that impacted care today? How? (Homelessness, low income, unemployed, alcoholism, drug addiction, t ransportation, low edu. Level, literacy, decrease access to med. care, prison, rehab)? @ -No Was there de-escalation of care discussed even if they declined (Discuss DNR or withdrawal of care, Hospice)? DNR status @ -No What co-morbidities impacted this encounter? (DM, HTN, Smoking, COPD, CAD, Cancer, CVA, ARF, Chemo, Hep., AIDS, mental health diagnosis, sleep apnea, morbid obesity)? @ -Chronic renal failure Was patient admitted / discharged? Hospital course, mention meds given and r oute, prescriptions, significant lab abnormalities, going to OR and other pertinent info. @ -Patient's labs show findings of chronic renal failure. I suspect that the patient's dyspnea is due to her inability to get dialyzed appropriately over the past couple of days. Patient's viral studies are negative. Will admit the patient to the hospital for dialysis access placement and dialysis. Nephrology and vascular surgery were consulted/contacted from the ED. Dr. Yoo has accepted hospital admission. Undiagnosed new problem with uncertain prognosis? @ -No Drug Therapy requiring intensive monitoring for toxicity (Heparin, Nitro, Insulin, Cardizem)? @ -No Were any procedures done? @ -No Diagnosis/symptom? @ -Chronic renal failure Acute, or Chronic, or Acute on Chronic? @ -Chronic Uncomplicated (without systemic symptoms) or Complicated (systemic symptoms)? @ -default Side effects of treatment? @ -No Exacerbation, Progression, or Severe Exacerbation? @ -No Poses a threat to life or bodily function? How? (Chest pain, USA, NC, pneumonia, PE, COPD, DKA, ARF, appy, cholecystitis, CVA, Diverticulitis, Homicidal, Suicidal, threat to staff... and all critical care pts) @ -No Diagnosis/symptom? @ -Dyspnea Acute, or Chronic, or Acute on Chronic? @ -Acute Uncomplicated (without systemic symptoms) or Complicated (systemic symptoms)? @ -default Side effects of treatment? @ -none Exacerbation, Progression, or Severe Exacerbation] @ -no Poses a threat to life or bodily function? @ -no Diagnosis/symptom? @ -Hypokalemia Acute, or Chronic, or Acute on Chronic? @ -default Uncomplicated (without systemic symptoms) or Complicated (systemic symptoms)? @ -default Side effects of treatment? @ -none Exacerbation, Progression, or Severe Exacerbation] @ -no Poses a threat to life or bodily function? @ -no Diagnosis/symptom? @ -Hypoxia Acute, or Chronic, or Acute on Chronic? @ -Acute Uncomplicated (without systemic symptoms) or Complicated (systemic symptoms)? @ -default Side effects of treatment? @ -none Exacerbation, Progression, or Severe Exacerbation] @ -no Poses a threat to life or bodily function? @ -Yes. Hypoxia can pose a threat to life if left untreated. - Lab Data Result diagrams: 10/22/22 16:00 10/22/22 16:00 Lab Results 10/22/22 10/22/22 10/22/22 Range/Units 16:00 16:00 16:00 WBC 13.2 H (3.8-10.6) k/uL RBC 3.18 L (3.80-5.40) m/uL Hgb 10.8 L (11.4-16.0) gm/dL Hct 31.5 L (34.0-46.0) % MCV 99.2 (80.0-100.0) fL MCH 33.9 (25.0-35.0) pg MCHC 34.2 (31.0-37.0) g/dL RDW 15.9 H (11.5-15.5) % Plt Count 167 (150-450) k/uL MPV 8.0 Neutrophils % 91 % Lymphocytes % 4 % Monocytes % 4 % Eosinophils % 0 % Basophils % 0 % Neutrophils # 11.9 H (1.3-7.7) k/uL Lymphocytes # 0.6 L (1.0-4.8) k/uL Monocytes # 0.5 (0-1.0) k/uL Eosinophils # 0.0 (0-0.7) k/uL Basophils # 0.0 (0-0.2) k/uL Macrocytosis Slight PT 10.6 (9.0-12.0) sec INR 1.0 (<1.2) APTT 37.1 H (22.0-30.0) sec Sodium 134 L (137-145) mmol/L Potassium 3.0 L (3.5-5.1) mmol/L Chloride 98 (98-107) mmol/L Carbon Dioxide 28 (22-30) mmol/L Anion Gap 8 mmol/L BUN 19 H (7-17) mg/dL Creatinine 2.41 H (0.52-1.04) mg/dL Est GFR (CKD-EPI)AfAm 22 (>60 ml/min/1.73 sqM) Est GFR (CKD-EPI)NonAf 19 (>60 ml/min/1.73 sqM) Glucose 100 H (74-99) mg/dL Calcium 8.3 L (8.4-10.2) mg/dL Phosphorus 2.6 (2.5-4.5) mg/dL Magnesium 1.9 (1.6-2.3) mg/dL Total Bilirubin 0.4 (0.2-1.3) mg/dL AST 41 H (14-36) U/L ALT 30 (4-34) U/L Alkaline Phosphatase 91 (38-126) U/L Troponin I (0.000-0.034) ng/mL NT-Pro-B Natriuret Pep pg/mL Total Protein 5.4 L (6.3-8.2) g/dL Albumin 3.2 L (3.5-5.0) g/dL Influenza Type A (PCR) (Not Detectd) Influenza Type B (PCR) (Not Detectd) RSV (PCR) (Not Detectd) SARS-CoV-2 (PCR) (Not Detectd) 10/22/22 10/22/22 10/22/22 Range/Units 16:00 16:00 16:00 WBC (3.8-10.6) k/uL RBC (3.80-5.40) m/uL Hgb (11.4-16.0) gm/dL Hct (34.0-46.0) % MCV (80.0-100.0) fL MCH (25.0-35.0) pg MCHC (31.0-37.0) g/dL RDW (11.5-15.5) % Plt Count (150-450) k/uL MPV Neutrophils % % Lymphocytes % % Monocytes % % Eosinophils % % Basophils % % Neutrophils # (1.3-7.7) k/uL Lymphocytes # (1.0-4.8) k/uL Monocytes # (0-1.0) k/uL Eosinophils # (0-0.7) k/uL Basophils # (0-0.2) k/uL Macrocytosis PT (9.0-12.0) sec INR (<1.2) APTT (22.0-30.0) sec Sodium (137-145) mmol/L Potassium (3.5-5.1) mmol/L Chloride (98-107) mmol/L Carbon Dioxide (22-30) mmol/L Anion Gap mmol/L BUN (7-17) mg/dL Creatinine (0.52-1.04) mg/dL Est GFR (CKD-EPI)AfAm (>60 ml/min/1.73 sqM) Est GFR (CKD-EPI)NonAf (>60 ml/min/1.73 sqM) Glucose (74-99) mg/dL Calcium (8.4-10.2) mg/dL Phosphorus (2.5-4.5) mg/dL Magnesium (1.6-2.3) mg/dL Total Bilirubin (0.2-1.3) mg/dL AST (14-36) U/L ALT (4-34) U/L Alkaline Phosphatase (38-126) U/L Troponin I 0.030 (0.000-0.034) ng/mL NT-Pro-B Natriuret Pep 7010 pg/mL Total Protein (6.3-8.2) g/dL Albumin (3.5-5.0) g/dL Influenza Type A (PCR) Not Detected (Not Detectd) Influenza Type B (PCR) Not Detected (Not Detectd) RSV (PCR) Not Detected (Not Detectd) SARS-CoV-2 (PCR) Not Detected (Not Detectd) - Radiology Data Chest x-ray: Chronic changes without evidence for acute pulmonary disease. L imited evaluation of the lung bases. Chest x-ray: Suspected bibasilar atelectasis, no significant change from prior and from a 07/22/2022. Critical Care Time Critical Care Time: Yes Total Critical Care Time: 30 Disposition Clinical Impression: Dyspnea, Chronic renal failure, Hypoxia, Hypokalemia Disposition: ADMITTED IP TO THIS HOSP Condition: Stable Is patient prescribed a controlled substance at d/c from ED?: No Time of Disposition: 18:20
[2022-10-22 16:37] LABS: Basophils % (A) 0 %; Eosinophils % (A) 0 %; HCT 31.5 % (34.0-46.0); HGB 10.8 gm/dL (11.4-16.0); Lymphocytes # (A) 0.6 k/uL (1.0-4.8); Lymphocytes % (A) 4 %; MCH 33.9 pg (25.0-35.0); MCHC 34.2 g/dL (31.0-37.0); MCV 99.2 fL (80.0-100.0); Macrocytosis Slight; Monocytes # (A) 0.5 k/uL (0-1.0); Monocytes % (A) 4 %; Neutrophils # (A) 11.9 k/uL (1.3-7.7); Neutrophils % (A) 91 %; Platelet Count 167 k/uL (150-450); RBC 3.18 m/uL (3.80-5.40); RDW 15.9 % (11.5-15.5); WBC 13.2 k/uL (3.8-10.6)
--- NOTE | 2022-10-22 16:56 | XR ---
EXAMINATION TYPE: XR chest 1V portable DATE OF EXAM: 10/22/2022 HISTORY: Shortness of breath. COMPARISON: 07/22/2022 TECHNIQUE: Single view of the chest is submitted. Lung bases are cut off the [id number] limiting t he examination. FINDINGS: Demonstrated are scattered senescent parenchymal change. Large bore central venous line unchanged in position. There is no evidence for focal infiltrate. The heart is stable. Hilar and mediastinal structures are within normal limits. Degenerative changes are seen of the dorsal spine. IMPRESSION: 1. Chronic changes without evidence for acute pulmonary disease. Limited Evaluation of the lung base s.
[2022-10-22 17:01] LABS: Partial Thromboplastin Time 37.1 sec (22.0-30.0); Prothrombin Time 10.6 sec (9.0-12.0)
[2022-10-22 17:42] LABS: Albumin 3.2 g/dL (3.5-5.0); Calcium 8.3 mg/dL (8.4-10.2); Magnesium 1.9 mg/dL (1.6-2.3); Phosphorus 2.6 mg/dL (2.5-4.5); Total Bilirubin 0.4 mg/dL (0.2-1.3); Total Protein 5.4 g/dL (6.3-8.2)
[2022-10-22] MEDS ORDERED: NALOXONE 0.4 MG/ML 1 ML VIAL IV PRN (18:20)
--- NOTE | 2022-10-22 18:35 | XR ---
EXAMINATION TYPE: XR chest 1V portable DATE OF EXAM: 10/22/2022 6:11 PM COMPARISON: Chest radiographs from TECHNIQUE: XR chest 1V portable Frontal view of the chest. CLINICAL INDICATION:Female, 77 years old with history of limited evaluation of lung bases on initial CXR; FINDINGS: Lungs/Pleura: There is no evidence of pleural effusion, focal consolidation, or pneumothorax. Pulmonary vascularity: Unremarkable. Heart/mediastinum: Cardiomediastinal silhouette is unremarkable. Musculoskeletal: No acute osseous pathology. Right central venous catheter with tip at the superior cavoatrial junction. IMPRESSION: Suspected bibasilar atelectasis, no significant change from prior and from 07/22/2022.
[2022-10-22] MEDS ORDERED: ALPRAZolam 0.25 MG TAB PO PRN (23:47)
[2022-10-22] MEDS ORDERED: METOCLOPRAMIDE 5 MG TAB PO PRN (23:47)
[2022-10-22] MEDS ORDERED: ONDANSETRON 4 MG TAB PO PRN (23:52)
[2022-10-23 06:33] LABS: Anisocytosis Slight; Basophils % (A) 0 %; Eosinophils % (A) 0 %; HCT 31.1 % (34.0-46.0); HGB 10.2 gm/dL (11.4-16.0); Hypochromasia Slight; Lymphocytes # (A) 0.5 k/uL (1.0-4.8); Lymphocytes % (A) 4 %; MCH 33.8 pg (25.0-35.0); MCHC 32.7 g/dL (31.0-37.0); MCV 103.4 fL (80.0-100.0); Macrocytosis Moderate; Mean Platelet Volume 8.1; Monocytes # (A) 0.5 k/uL (0-1.0); Monocytes % (A) 5 %; Neutrophils # (A) 10.6 k/uL (1.3-7.7); Neutrophils % (A) 90 %; Platelet Count 160 k/uL (150-450); RBC 3.01 m/uL (3.80-5.40); RDW 16.1 % (11.5-15.5); WBC 11.8 k/uL (3.8-10.6)
[2022-10-23] MEDS: LEVOTHYROXINE 112 MCG TAB PO SCH (06:53)
[2022-10-23] MEDS: ACYCLOVIR 200 MG CAP PO SCH ×2 (07:47→22:10)
[2022-10-23] MEDS: amLODIPine 5 MG TAB PO SCH ×2 (07:51→22:11)
[2022-10-23] MEDS: buPROPion XL 150 MG TAB.ER.24H PO SCH (07:51)
[2022-10-23 08:00] LABS: ALT 26 U/L (4-34); AST 35 U/L (14-36); African American GFR (CKD) 17 (>60 ml/min/1.73 sqM); Albumin 2.9 g/dL (3.5-5.0); Albumin/Globulin Ratio 1.4; Alkaline Phosphatase 76 U/L (38-126); Anion Gap 9 mmol/L; Blood Urea Nitrogen 23 mg/dL (7-17); Carbon Dioxide 25 mmol/L (22-30); Chloride 98 mmol/L (98-107); Globulin 2.1 g/dL; Glucose 88 mg/dL (74-99); Non-African American GFR(CKD) 15 (>60 ml/min/1.73 sqM); Potassium 3.1 mmol/L (3.5-5.1); Sodium 132 mmol/L (137-145); Total Bilirubin 0.4 mg/dL (0.2-1.3)
--- NOTE | 2022-10-23 09:02 | P.GSCN ---
History of Present Illness History of present illness: Patient came to the emergency room this patient is known to me we put a right IJ catheter the past which is going dialysis 3 times a week. Osteo-patient went was told the cath is not working she's scheduled to have a placement of a new dialysis catheter. Patient also has history of shortness of breath and and on oxygen Neck is supple chest crackles bilateral pulses second sound present Abdomen soft nontender vascular femorals are 1+ bilateral Plan is placement of dialysis catheter risk and complication discussed Past Medical History Past Medical History: Eye Disorder, GERD/Reflux, Hypertension, Osteoarthritis (OA), Renal Disease, Thyroid Disorder, Vascular Disorder Additional Past Medical History / Comment(s): Ovarian cancer, chronic kidney disease (3B), PVD- left leg ., spinal stenosis, arthritis & spurs left hip., IBS., hx pancreatitis., occasional vertigo., left eye macular hole. History of Any Multi-Drug Resistant Organisms: None Reported Year Discovered:: 10/12/21 ESBL E.coli MDRO Source:: Urine Past Surgical History: Cholecystectomy, Hysterectomy Additional Past Surgical History / Comment(s): trigger finger x5., carpal tunnel tahir., ganglion cyst Past Anesthesia/Blood Transfusion Reactions: Motion Sickness, Postoperative Nausea & Vomiting (PONV) Additional Past Anesthesia/Blood Transfusion Reaction / Comm: mother=ponv Past Psychological History: Anxiety, Depression Smoking Status: Former smoker Past Alcohol Use History: None Reported Past Drug Use History: None Reported - Past Family History Father Family Medical History: Coronary Artery Disease (CAD) Additional Family Medical History / Comment(s): states grandaughter= leukemia. grandmother=multiple myeloma Medications and Allergies Home Medications Medication Instructions Recorded Confirmed Type amLODIPine BESYLATE 5 mg PO BID 05/13/18 10/22/22 History buPROPion XL [Wellbutrin XL] 150 mg PO DAILY 05/13/18 10/22/22 History ALPRAZolam [Xanax] 0.375 mg PO DAILY PRN 10/12/21 10/22/22 History Magnesium Chloride [Mag64] 64 mg PO HS 10/12/21 10/22/22 History Ezetimibe [Zetia] 10 mg PO HS 06/13/22 10/22/22 History Levothyroxine Sodium [Synthroid] 112 mcg PO DAILY 06/13/22 10/22/22 History Acyclovir [Zovirax] 400 mg PO BID 07/18/22 10/22/22 History Ondansetron [Zofran] 4 mg PO Q8HR PRN #30 tab 07/22/22 10/22/22 Rx Albuterol Inhaler [Ventolin Hfa 2 puff INHALATION RT-QID PRN 10/22/22 10/22/22 History Inhaler] Metoclopramide [Reglan] 5 mg PO Q6H PRN 10/22/22 10/22/22 History Metoprolol Succinate (ER) [Toprol 50 mg PO HS 10/22/22 10/22/22 History XL] dexAMETHasone [Decadron] 40 mg PO TU 10/22/22 10/22/22 History Allergies Allergy/AdvReac Type Severity Reaction Status Date / Time tetracycline Allergy Rash/Hives, Verified 10/22/22 16:48 headache hydromorphone [From Dilaudid] AdvReac Severe Nausea & Verified 10/22/22 16:48 Vomiting azithromycin AdvReac Nausea & Verified 10/22/22 16:48 Vomiting Surgical - Exam Vital Signs Temp Pulse Resp BP Pulse Ox 98 F 108 H 24 120/89 87 L 10/22/22 15:40 10/22/22 15:40 10/22/22 15:40 10/22/22 15:40 10/22/22 15:40 Results - Labs 10/23/22 05:28 10/23/22 05:28 Abnormal Lab Results - Last 24 Hours (Table) 10/22/22 10/22/22 10/22/22 Range/Units 16:00 16:00 16:00 WBC 13.2 H (3.8-10.6) k/uL RBC 3.18 L (3.80-5.40) m/uL Hgb 10.8 L (11.4-16.0) gm/dL Hct 31.5 L (34.0-46.0) % MCV (80.0-100.0) fL RDW 15.9 H (11.5-15.5) % Neutrophils # 11.9 H (1.3-7.7) k/uL Lymphocytes # 0.6 L (1.0-4.8) k/uL APTT 37.1 H (22.0-30.0) sec Sodium 134 L (137-145) mmol/L Potassium 3.0 L (3.5-5.1) mmol/L BUN 19 H (7-17) mg/dL Creatinine 2.41 H (0.52-1.04) mg/dL Glucose 100 H (74-99) mg/dL Calcium 8.3 L (8.4-10.2) mg/dL AST 41 H (14-36) U/L Total Protein 5.4 L (6.3-8.2) g/dL Albumin 3.2 L (3.5-5.0) g/dL 10/23/22 10/23/22 Range/Units 05:28 05:28 WBC 11.8 H (3.8-10.6) k/uL RBC 3.01 L (3.80-5.40) m/uL Hgb 10.2 L (11.4-16.0) gm/dL Hct 31.1 L (34.0-46.0) % MCV 103.4 H (80.0-100.0) fL RDW 16.1 H (11.5-15.5) % Neutrophils # 10.6 H (1.3-7.7) k/uL Lymphocytes # 0.5 L (1.0-4.8) k/uL APTT (22.0-30.0) sec Sodium 132 L (137-145) mmol/L Potassium 3.1 L (3.5-5.1) mmol/L BUN 23 H (7-17) mg/dL Creatinine 2.97 H (0.52-1.04) mg/dL Glucose (74-99) mg/dL Calcium 8.0 L (8.4-10.2) mg/dL AST (14-36) U/L Total Protein 5.0 L (6.3-8.2) g/dL Albumin 2.9 L (3.5-5.0) g/dL Diabetes panel 10/22/22 10/23/22 Range/Units 16:00 05:28 Sodium 134 L 132 L (137-145) mmol/L Potassium 3.0 L 3.1 L (3.5-5.1) mmol/L Chloride 98 98 (98-107) mmol/L Carbon Dioxide 28 25 (22-30) mmol/L BUN 19 H 23 H (7-17) mg/dL Creatinine 2.41 H 2.97 H (0.52-1.04) mg/dL Glucose 100 H 88 (74-99) mg/dL Calcium 8.3 L 8.0 L (8.4-10.2) mg/dL AST 41 H 35 (14-36) U/L ALT 30 26 (4-34) U/L Alkaline Phosphatase 91 76 (38-126) U/L Total Protein 5.4 L 5.0 L (6.3-8.2) g/dL Albumin 3.2 L 2.9 L (3.5-5.0) g/dL Calcium panel 10/22/22 10/23/22 Range/Units 16:00 05:28 Calcium 8.3 L 8.0 L (8.4-10.2) mg/dL Phosphorus 2.6 (2.5-4.5) mg/dL Albumin 3.2 L 2.9 L (3.5-5.0) g/dL Pituitary panel 10/22/22 10/23/22 Range/Units 16:00 05:28 Sodium 134 L 132 L (137-145) mmol/L Potassium 3.0 L 3.1 L (3.5-5.1) mmol/L Chloride 98 98 (98-107) mmol/L Carbon Dioxide 28 25 (22-30) mmol/L BUN 19 H 23 H (7-17) mg/dL Creatinine 2.41 H 2.97 H (0.52-1.04) mg/dL Glucose 100 H 88 (74-99) mg/dL Calcium 8.3 L 8.0 L (8.4-10.2) mg/dL Adrenal panel 10/22/22 10/23/22 Range/Units 16:00 05:28 Sodium 134 L 132 L (137-145) mmol/L Potassium 3.0 L 3.1 L (3.5-5.1) mmol/L Chloride 98 98 (98-107) mmol/L Carbon Dioxide 28 25 (22-30) mmol/L BUN 19 H 23 H (7-17) mg/dL Creatinine 2.41 H 2.97 H (0.52-1.04) mg/dL Glucose 100 H 88 (74-99) mg/dL Calcium 8.3 L 8.0 L (8.4-10.2) mg/dL Total Bilirubin 0.4 0.4 (0.2-1.3) mg/dL AST 41 H 35 (14-36) U/L ALT 30 26 (4-34) U/L Alkaline Phosphatase 91 76 (38-126) U/L Total Protein 5.4 L 5.0 L (6.3-8.2) g/dL Albumin 3.2 L 2.9 L (3.5-5.0) g/dL
[2022-10-23] MEDS ORDERED: LIDOCAINE 1% INJ 10MG/ML (20 ML MDV) SQ ONE ×2 (09:12→09:15)
[2022-10-23] MEDS ORDERED: SODIUM CHLORIDE 0.9% 250 ML IV ONE (09:12)
[2022-10-23] MEDS ORDERED: MIDAZOLAM 2 MG/2 ML VIAL IV ONE (09:13)
[2022-10-23] MEDS ORDERED: fentaNYL (PF) 50 MCG/ML 2 ML AMP IV ONE (09:13)
--- NOTE | 2022-10-23 09:35 | P.PCN ---
Description of Procedure: Preoperative diagnoses acute chronic renal failure with malfunctioning dialysis catheter Positive same Procedure 23 same dialysis catheter placed right jugular approach removal of the old dialysis catheter patient brought to the [facility] right chest first and neck was prepped and draped applied used an manner 1% lidocaine were infiltrated small residual made of the neck area. Catheter was identified and divided and great guidewire passed under fluoroscopy control guide was parked at the inferior vena cava. Then tunnel was created through the tunnel we brought 23 cm catheter. Dilator were advanced. The guidewire then replaced a she's on the top of the guidewire through the sheath we didn't to dialysis catheter tip of catheter superior vena cava and at her ejection free flow was noted flushed with heparin saline and Hep-Lock secured with 3-0 nylon dressing applied patient for the procedure well will do x-ray of the chest and patient can have a dialysis
--- NOTE | 2022-10-23 10:27 | IR ---
Fluoroscopy History: hemodialysis catheter exchange. 1.0 min fluoro, 1.6747 Gycm2
[2022-10-23] MEDS: ALBUTEROL NEBULIZED 2.5 MG/3 ML INHALATION PRN ×2 (11:30→20:53)
--- NOTE | 2022-10-23 13:54 | XR ---
EXAMINATION TYPE: XR chest 1V portable DATE OF EXAM: 10/23/2022 HISTORY: r/o right sided pneumothorax, hemodialysis catheter exchange COMPARISON: 10/22/2022 TECHNIQUE: Single view of the chest is submitted. FINDINGS: Demonstrated are scattered senescent parenchymal change. Right-sided hemodialysis catheter with its distal tip overlying the SVC. No evidence for pneumothorax. There is no evidence for focal infiltrate. The heart is stable. Hilar and mediastinal structures are within normal limits. Degenerative changes are seen of the dorsal spine. IMPRESSION: 1. Chronic changes without evidence for acute pulmonary disease.
--- NOTE | 2022-10-23 14:51 | P.HPIM ---
History of Present Illness H&P Date: 10/23/22 Chief Complaint: Short of breath This is a pleasant 77 years old female with past medical history of GERD/Reflux, Hypertension, Osteoarthritis hypothyroidism, history of Ovarian cancer, chronic kidney disease (3B), PVD- left leg ., spinal stenosis, arthritis & spurs left hip., IBS., hx pancreatitis., occasional vertigo., left eye macular hole, history of 10/12/21 ESBL E.coli, Cholecystectomy, She is following up with Dr. Dominguez and she's getting chemotherapy for her mo noclonal gammopathy, patient has been on hemodialysis since July 2022 Patient presents increasing shortness of breath. Lower extremity edema. She says dialysis catheter not working well since June. Unable to dialysis this Monday or Monday. Also decreased dialysis on Monday. Earlier today dialysis catheter was replaced by Dr. Fisher from vascular. Also has a cord. Congested cough. No fever no chills. Decreased appetite. Review of systems: GEN.: Decreased appetite EYES: None HEENT: None NECK: None RESPIRATORY: Short of breath CARDIOVASCULAR: [Edema GASTROINTESTINAL: None GENITOURINARY: None MUSCULOSKELETAL: Joint pains LYMPHATICS: None HEMATOLOGICAL: None PSYCHIATRY: None NEUROLOGICAL: None Past medical history to include: Hemodialysis since July 2022:, Anemia of chronic disease, monoclonal gammopathy getting chemotherapy, essential hypertension, hyperlipidemia, hypothyroid, GERD, osteomyelitis arthritis, history of ovarian cancer, PAD, spinal stenosis, IBS Social history: Smoked less than 1 pack a day, stopped smoking 4 years ago. No alcohol. Physical examination: VITAL SIGNS: 98.3, 92, 18, 138/75, 91% on 3 L GENERAL: [BMI 32.6, declining, short of breath. EYES: Pupils equal. Conjunctiva normal. HEENT: External appearance of nose and ears normal, oral cavity grossly normal. NECK: JVD possibly raised; masses not palpable. HEART: First and second heart sounds are normal; edema present. LUNGS: Respiratory rate increased; this will crackles. ABDOMEN: Soft, nontender, liver spleen not palpable, no masses palpable. PSYCH: Alert and oriented x3; mood and affect normal. MUSCULOSKELETAL:No Clubbing/cyanosis;muscles-grossly intact. OA NEUROLOGICAL: Cranial nerves grossly intact; no facial asymmetry, power and sensation grossly intact. LYMPHATICS: No lymph nodes palpable in the axilla and neck INVESTIGATIONS, reviewed in the clinical context: October 23: White count 11.8 hemoglobin 10.2 platelets 169 sodium 132 potassium 3.1 BUN 23 creatinine 2.97 Influenza type A, diabetes, RSV, COVID-19: Not detected Chest x-ray film personally reviewed by me-some venous prominence, hyperinflation EKG tracing personally reviewed by me-poor quality. Sinus rhythm. Nonspecific changes Assessment and plan: -Acute. Fluid overload from malfunctioning dialysis catheter patient not able to have dialysis. New hemodialysis catheter placed by Dr. Fisher today. 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 Biopsy showed severe interstitial fibrosis and tubular atrophy. on hemodialysis being on dialysis since July 2022 -Anemia of chronic kidney disease -Chronic kidney disease minimal bone disease maintained on Renvela. -monoclonal gammopathy, currently on chemotherapy -Essential Hypertension Toprol-XL 50 mg daily at bedtime amlodipine 5 mg twice a day -Hyperlipidemia Zetia 10 mg daily at bedtime -Hypothyroidism Synthroid 112 g a day -Gastroesophageal reflux disease Pepcid when necessary -Primary osteoarthritis Tylenol as needed -History of ovarian cancer status post hysterectomy -Peripheral vascular disease of the left leg At aspirin -Chronic spinal stenosis -Irritable bowel syndrome Consultation to nephrology. Home medications resumed. Hopefully dialysis today. Discussed with the patient. Past Medical History Past Medical History: Eye Disorder, GERD/Reflux, Hypertension, Osteoarthritis (OA), Renal Disease, Thyroid Disorder, Vascular Disorder Additional Past Medical History / Comment(s): Ovarian cancer, chronic kidney disease (3B), PVD- left leg ., spinal stenosis, arthritis & spurs left hip., IBS., hx pancreatitis., occasional vertigo., left eye macular hole. History of Any Multi-Drug Resistant Organisms: None Reported Date of last positivie culture/infection: 10/12/21 ESBL E.coli MDRO Source:: Urine Past Surgical History: Cholecystectomy, Hysterectomy Additional Past Surgical History / Comment(s): trigger finger x5., carpal tunnel tahir., ganglion cyst Past Anesthesia/Blood Transfusion Reactions: Motion Sickness, Postoperative Nausea & Vomiting (PONV) Additional Past Anesthesia/Blood Transfusion Reaction / Comment(s): mother=ponv Past Psychological History: Anxiety, Depression Smoking Status: Former smoker Past Alcohol Use History: None Reported Past Drug Use History: None Reported - Past Family History Father Family Medical History: Coronary Artery Disease (CAD) Additional Family Medical History / Comment(s): states grandaughter= leukemia. grandmother=multiple myeloma Medications and Allergies Home Medications Medication Instructions Recorded Confirmed Type amLODIPine BESYLATE 5 mg PO BID 05/13/18 10/22/22 History buPROPion XL [Wellbutrin XL] 150 mg PO DAILY 05/13/18 10/22/22 History ALPRAZolam [Xanax] 0.375 mg PO DAILY PRN 10/12/21 10/22/22 History Magnesium Chloride [Mag64] 64 mg PO HS 10/12/21 10/22/22 History Ezetimibe [Zetia] 10 mg PO HS 06/13/22 10/22/22 History Levothyroxine Sodium [Synthroid] 112 mcg PO DAILY 06/13/22 10/22/22 History Acyclovir [Zovirax] 400 mg PO BID 07/18/22 10/22/22 History Ondansetron [Zofran] 4 mg PO Q8HR PRN #30 tab 07/22/22 10/22/22 Rx Albuterol Inhaler [Ventolin Hfa 2 puff INHALATION RT-QID PRN 10/22/22 10/22/22 History Inhaler] Metoclopramide [Reglan] 5 mg PO Q6H PRN 10/22/22 10/22/22 History Metoprolol Succinate (ER) [Toprol 50 mg PO HS 10/22/22 10/22/22 History XL] dexAMETHasone [Decadron] 40 mg PO TU 10/22/22 10/22/22 History Allergies Allergy/AdvReac Type Severity Reaction Status Date / Time tetracycline Allergy Rash/Hives, Verified 10/22/22 16:48 headache hydromorphone [From Dilaudid] AdvReac Severe Nausea & Verified 10/22/22 16:48 Vomiting azithromycin AdvReac Nausea & Verified 10/22/22 16:48 Vomiting Physical Exam Vitals: Vital Signs Temp Pulse Pulse Pulse Resp BP BP 10/23/22 11:40 86 10/23/22 11:31 84 10/23/22 10:54 84 122/72 10/23/22 10:39 84 119/72 10/23/22 10:24 86 127/65 10/23/22 10:09 90 135/74 10/23/22 09:54 98.3 F 92 18 138/75 10/23/22 08:40 93 10/23/22 08:39 10/23/22 07:29 99.0 F 93 18 138/71 10/23/22 02:00 98.4 F 92 17 148/70 10/22/22 20:00 98.3 F 98 18 162/76 10/22/22 19:23 90 24 153/71 10/22/22 17:14 98.2 F 94 19 158/69 10/22/22 16:01 22 10/22/22 15:43 10/22/22 15:40 98 F 108 H 24 120/89 Pulse Ox 10/23/22 11:40 10/23/22 11:31 10/23/22 10:54 95 10/23/22 10:39 95 10/23/22 10:24 94 L 10/23/22 10:09 92 L 10/23/22 09:54 91 L 10/23/22 08:40 10/23/22 08:39 94 L 10/23/22 07:29 93 L 10/23/22 02:00 94 L 10/22/22 20:00 95 10/22/22 19:23 94 L 10/22/22 17:14 95 10/22/22 16:01 10/22/22 15:43 95 10/22/22 15:40 87 L Intake and Output 10/22/22 10/23/22 10/23/22 22:59 06:59 14:59 Intake Total 50 Balance 50 Intake: IV 50 Other: # Voids 0 1 Weight 83.461 kg Results CBC & Chem 7: 10/23/22 05:28 10/23/22 05:28 Labs: Abnormal Lab Results - Last 24 Hours (Table) 10/22/22 10/22/22 10/22/22 Range/Units 16:00 16:00 16:00 WBC 13.2 H (3.8-10.6) k/uL RBC 3.18 L (3.80-5.40) m/uL Hgb 10.8 L (11.4-16.0) gm/dL Hct 31.5 L (34.0-46.0) % MCV (80.0-100.0) fL RDW 15.9 H (11.5-15.5) % Neutrophils # 11.9 H (1.3-7.7) k/uL Lymphocytes # 0.6 L (1.0-4.8) k/uL APTT 37.1 H (22.0-30.0) sec Sodium 134 L (137-145) mmol/L Potassium 3.0 L (3.5-5.1) mmol/L BUN 19 H (7-17) mg/dL Creatinine 2.41 H (0.52-1.04) mg/dL Glucose 100 H (74-99) mg/dL Calcium 8.3 L (8.4-10.2) mg/dL AST 41 H (14-36) U/L Total Protein 5.4 L (6.3-8.2) g/dL Albumin 3.2 L (3.5-5.0) g/dL 10/23/22 10/23/22 Range/Units 05:28 05:28 WBC 11.8 H (3.8-10.6) k/uL RBC 3.01 L (3.80-5.40) m/uL Hgb 10.2 L (11.4-16.0) gm/dL Hct 31.1 L (34.0-46.0) % MCV 103.4 H (80.0-100.0) fL RDW 16.1 H (11.5-15.5) % Neutrophils # 10.6 H (1.3-7.7) k/uL Lymphocytes # 0.5 L (1.0-4.8) k/uL APTT (22.0-30.0) sec Sodium 132 L (137-145) mmol/L Potassium 3.1 L (3.5-5.1) mmol/L BUN 23 H (7-17) mg/dL Creatinine 2.97 H (0.52-1.04) mg/dL Glucose (74-99) mg/dL Calcium 8.0 L (8.4-10.2) mg/dL AST (14-36) U/L Total Protein 5.0 L (6.3-8.2) g/dL Albumin 2.9 L (3.5-5.0) g/dL Thrombosis Risk Factor Assmnt - Choose All That Apply Each Factor Represents 1 point: Minor surgery planned, Obesity (BMI >25), Swollen legs (current) Other Risk Factors: Yes Each Risk Factor Represents 3 Points: Age 75 years or older Thrombosis Risk Factor Assessment Total Risk Factor Score: 6 Thrombosis Risk Factor Assessment Level: High Risk
--- NOTE | 2022-10-23 15:54 | P.NPCON ---
History of Present Illness - Reason for Consult Consult date: 10/23/22 end stage renal disease - Chief Complaint Dysfunctional permacath - History of Present Illness ESRD on hemodialysis for the last 3 months, follows with Dr. Byrne. Catheter dysfunction on Monday, but was able to get some treatment. She could not get her dialysis on Monday, went back again on Monday, and she was referred to the ER. Denies any nausea vomiting diarrhea. No chest pain or shortness of breath. Permacath was exchanged this morning. Review of Systems Constitutional: Reports as per HPI Past Medical History Past Medical History: Eye Disorder, GERD/Reflux, Hypertension, Osteoarthritis (OA), Renal Disease, Thyroid Disorder, Vascular Disorder Additional Past Medical History / Comment(s): Ovarian cancer, chronic kidney disease (3B), PVD- left leg ., spinal stenosis, arthritis & spurs left hip., IBS., hx pancreatitis., occasional vertigo., left eye macular hole. History of Any Multi-Drug Resistant Organisms: None Reported Date of last positivie culture/infection: 10/12/21 ESBL E.coli MDRO Source:: Urine Past Surgical History: Cholecystectomy, Hysterectomy Additional Past Surgical History / Comment(s): trigger finger x5., carpal tunnel tahir., ganglion cyst Past Anesthesia/Blood Transfusion Reactions: Motion Sickness, Postoperative Nausea & Vomiting (PONV) Additional Past Anesthesia/Blood Transfusion Reaction / Comment(s): mother=ponv Past Psychological History: Anxiety, Depression Smoking Status: Former smoker Past Alcohol Use History: None Reported Past Drug Use History: None Reported - Past Family History Father Family Medical History: Coronary Artery Disease (CAD) Additional Family Medical History / Comment(s): states grandaughter= leukemia. grandmother=multiple myeloma Medications and Allergies Home Medications Medication Instructions Recorded Confirmed Type amLODIPine BESYLATE 5 mg PO BID 05/13/18 10/22/22 History buPROPion XL [Wellbutrin XL] 150 mg PO DAILY 05/13/18 10/22/22 History ALPRAZolam [Xanax] 0.375 mg PO DAILY PRN 10/12/21 10/22/22 History Magnesium Chloride [Mag64] 64 mg PO HS 10/12/21 10/22/22 History Ezetimibe [Zetia] 10 mg PO HS 06/13/22 10/22/22 History Levothyroxine Sodium [Synthroid] 112 mcg PO DAILY 06/13/22 10/22/22 History Acyclovir [Zovirax] 400 mg PO BID 07/18/22 10/22/22 History Ondansetron [Zofran] 4 mg PO Q8HR PRN #30 tab 07/22/22 10/22/22 Rx Albuterol Inhaler [Ventolin Hfa 2 puff INHALATION RT-QID PRN 10/22/22 10/22/22 History Inhaler] Metoclopramide [Reglan] 5 mg PO Q6H PRN 10/22/22 10/22/22 History Metoprolol Succinate (ER) [Toprol 50 mg PO HS 10/22/22 10/22/22 History XL] dexAMETHasone [Decadron] 40 mg PO TU 10/22/22 10/22/22 History Allergies Allergy/AdvReac Type Severity Reaction Status Date / Time tetracycline Allergy Rash/Hives, Verified 10/22/22 16:48 headache hydromorphone [From Dilaudid] AdvReac Severe Nausea & Verified 10/22/22 16:48 Vomiting azithromycin AdvReac Nausea & Verified 10/22/22 16:48 Vomiting Physical Exam Vitals: Vital Signs Temp Pulse Pulse Pulse Resp BP BP 10/23/22 14:00 98.9 F 92 18 125/72 10/23/22 11:40 86 10/23/22 11:31 84 10/23/22 10:54 84 122/72 10/23/22 10:39 84 119/72 10/23/22 10:24 86 127/65 10/23/22 10:09 90 135/74 10/23/22 09:54 98.3 F 92 18 138/75 10/23/22 08:40 93 10/23/22 08:39 10/23/22 07:29 99.0 F 93 18 138/71 10/23/22 02:00 98.4 F 92 17 148/70 10/22/22 20:00 98.3 F 98 18 162/76 10/22/22 19:23 90 24 153/71 10/22/22 17:14 98.2 F 94 19 158/69 10/22/22 16:01 22 Pulse Ox 10/23/22 14:00 95 10/23/22 11:40 10/23/22 11:31 10/23/22 10:54 95 10/23/22 10:39 95 10/23/22 10:24 94 L 10/23/22 10:09 92 L 10/23/22 09:54 91 L 10/23/22 08:40 10/23/22 08:39 94 L 10/23/22 07:29 93 L 10/23/22 02:00 94 L 10/22/22 20:00 95 10/22/22 19:23 94 L 10/22/22 17:14 95 10/22/22 16:01 Intake and Output 10/23/22 10/23/22 10/23/22 06:59 14:59 22:59 Intake Total 50 Balance 50 Intake: IV 50 Other: # Voids 0 1 No acute distress S1-S2 heard Decreased breath sounds Right jugular permacath Trace edema Results - Lab Results Most recent lab results Calcium 8.0 mg/dL (8.4-10.2) L 10/23/22 05:28 Phosphorus 2.6 mg/dL (2.5-4.5) 10/22/22 16:00 Magnesium 1.9 mg/dL (1.6-2.3) 10/22/22 16:00 10/23/22 05:28 10/23/22 05:28 Assessment and Plan Assessment: #1 permacath dysfunction, exchanged today. #2 ESRD on hemodialysis, MWF schedule. #3 hypertension with ESRD #4 anemia with ESRD #5 metabolic bone disease Plan: #1 hemodialysis in the morning, goal for 2.5 L of UF. #2 ESRD medications
[2022-10-23] MEDS: EZETIMIBE 10 MG TAB PO SCH (22:10)
[2022-10-23] MEDS: MAGNESIUM OXIDE 400 MG TAB PO SCH (22:11)
[2022-10-23] MEDS: METOPROLOL SUCCINATE (ER) 50 MG TAB.ER.24H PO SCH (22:11)
[2022-10-24] MEDS: ALBUTEROL NEBULIZED 2.5 MG/3 ML INHALATION PRN ×3 (03:45→12:27)
[2022-10-24] MEDS: LEVOTHYROXINE 112 MCG TAB PO SCH (06:34)
[2022-10-24] MEDS: ACYCLOVIR 200 MG CAP PO SCH ×2 (08:23→20:43)
[2022-10-24] MEDS: buPROPion XL 150 MG TAB.ER.24H PO SCH (08:24)
[2022-10-24] MEDS: amLODIPine 5 MG TAB PO SCH ×2 (08:24→20:44)
[2022-10-24] MEDS ORDERED: LOPERAMIDE 2 MG CAP PO PRN (09:18)
--- NOTE | 2022-10-24 11:50 | P.PN ---
Subjective Patient is seen for follow-up for end-stage renal disease. Patient was admitted due to malfunctioning dialysis catheter. A new catheter was placed yesterday. Patient will be dialyzed today. Patient is complaining of mucousy diarrhea which she has had on and off for 3 months. No complaints of fever chills nausea or vomiting. Patient is complaining of some shortness of breath and has had cough. Objective - Vital Signs Vital signs: Vital Signs Temp 98.6 F 10/24/22 07:07 Pulse 90 10/24/22 08:24 Resp 18 10/24/22 08:23 BP 128/61 10/24/22 07:07 Pulse Ox 93 L 10/24/22 08:16 FiO2 Intake & Output 10/23/22 10/24/22 10/24/22 18:59 06:59 18:59 Intake Total 50 Output Total 0 Balance 50 Intake: IV 50 Output: Urine/Stool Mix 0 Other: # Voids 0 1 1 # Bowel Movements 2 - Exam Awake, comfortable, no acute distress Examination of the heart S1 and S2 Examination of the lungs decreased breath sounds at the bases with basilar crackles Abdomen is soft nontender Examination of the lower extremities shows edema 2+ 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 End-stage renal disease on hemodialysis on a Monday schedule. Etiology is biopsy proven proliferative GN with monoclonal IgG KAPPA deposits with severe interstitial fibrosis. 2. Permacath malfunction status post new permacath placement on 10/23/2022 3. Volume overload 4. Metabolic bone disease 5. Hypokalemia most likely associated with diarrhea 6. Diarrhea rule out C. diff colitis Plan: Hemodialysis today and if patient is not discharged today we will dialyze her again tomorrow. Replace potassium with hemodialysis. Check stool for C. diff
[2022-10-24] MEDS: PSYLLIUM HUSK 100% 6 GM PACKET PO SCH (12:03)
[2022-10-24] MEDS: METOPROLOL SUCCINATE (ER) 50 MG TAB.ER.24H PO SCH (20:43)
[2022-10-24] MEDS: EZETIMIBE 10 MG TAB PO SCH (20:43)
[2022-10-24] MEDS: MAGNESIUM OXIDE 400 MG TAB PO SCH (20:43)
--- NOTE | 2022-10-24 22:19 | P.PN ---
Progress Note - Text Progress Note Date: 10/24/22 Chief Complaint: Short of breath This is a pleasant 77 years old female with past medical history of GERD/Reflux, Hypertension, Osteoarthritis hypothyroidism, history of Ovarian cancer, chronic kidney disease (3B), PVD- left leg ., spinal stenosis, arthritis & spurs left hip., IBS., hx pancreatitis., occasional vertigo., left eye macular hole, history of 10/12/21 ESBL E.coli, Cholecystectomy, She is following up with Dr. Dominguez and she's getting chemotherapy for her monoclonal gammopathy, patient has been on hemodialysis since July 2022 Patient presents increasing shortness of breath. Lower extremity edema. She says dialysis catheter not working well since June. Unable to dialysis this Monday or Monday. Also decreased dialysis on Monday. Earlier today dialysis catheter was replaced by Dr. Fisher from vascular. Also has a cord. Congested cough. No fever no chills. Decreased appetite. October 24: Patient is getting dialyzed this morning. Short of breath. Did eat some. Home medications continued. 2900 mL removed with hemodialysis today. Active Medications Acyclovir (Acyclovir 200 Mg Cap) 400 mg PO BID [facility] Last Admin: 10/24/22 20:43 Dose: Not Given Albuterol Sulfate (Albuterol Nebulized 2.5 Mg/3 Ml) 2.5 mg INHALATION RT-QID PRN PRN Reason: Shortness Of Breath Last Admin: 10/24/22 12:27 Dose: 2.5 mg Alprazolam (Alprazolam 0.25 Mg Tab) 0.375 mg PO DAILY PRN PRN Reason: Anxiety Amlodipine Besylate (Amlodipine 5 Mg Tab) 5 mg PO BID [facility] Last Admin: 10/24/22 20:44 Dose: 5 mg Bupropion HCl (Bupropion Xl 150 Mg Tab.Er.24h) 150 mg PO DAILY [facility] Last Admin: 10/24/22 08:24 Dose: 150 mg Dexamethasone (Dexamethasone 4 Mg Tab) 40 mg PO [facility] Ezetimibe (Ezetimibe 10 Mg Tab) 10 mg PO HS [facility] Last Admin: 10/24/22 20:43 Dose: 10 mg Levothyroxine Sodium (Levothyroxine 112 Mcg Tab) 112 mcg PO DAILY@0630 [facility] Last Admin: 10/24/22 06:34 Dose: 112 mcg Loperamide HCl (Loperamide 2 Mg Cap) 2 mg PO QID PRN PRN Reason: Diarrhea Last Admin: 10/24/22 09:25 Dose: 2 mg Magnesium Oxide (Magnesium Oxide 400 Mg Tab) 400 mg PO HS [facility] Last Admin: 10/24/22 20:43 Dose: 400 mg Metoclopramide HCl (Metoclopramide 5 Mg Tab) 5 mg PO Q6H PRN PRN Reason: Nausea Metoprolol Succinate (Metoprolol Succinate (Er) 50 Mg Tab.Er.24h) 50 mg PO HS [facility] Last Admin: 10/24/22 20:43 Dose: 50 mg Naloxone HCl (Naloxone 0.4 Mg/Ml 1 Ml Vial) 0.2 mg IV Q2M PRN PRN Reason: Opioid Reversal Ondansetron HCl (Ondansetron 4 Mg Tab) 4 mg PO Q8HR PRN PRN Reason: Nausea Psyllium Hydrophilic Mucilloid (Psyllium Husk 100% 6 Gm Packet) 6 gm PO DAILY [facility] Last Admin: 10/24/22 12:03 Dose: 6 gm Past medical history to include: Hemodialysis since July 2022:, Anemia of chronic disease, monoclonal gammopathy getting chemotherapy, essential hypertension, hyperlipidemia, hypothyroid, GERD, osteomyelitis arthritis, history of ovarian cancer, PAD, spinal stenosis, IBS Social history: Smoked less than 1 pack a day, stopped smoking 4 years ago. No alcohol. Physical examination: VITAL SIGNS: 97.8, 92, 18, 151/76, 97% on 3 L GENERAL: [BMI 32.6, reclining, short of breath. EYES: Pupils equal. Conjunctiva normal. HEENT: External appearance of nose and ears normal, oral cavity grossly normal. NECK: JVD possibly raised; masses not palpable. HEART: First and second heart sounds are normal; edema present. LUNGS: Respiratory rate increased; basal crackles. ABDOMEN: Soft, nontender, liver spleen not palpable, no masses palpable. PSYCH: Alert and oriented x3; mood and affect normal. MUSCULOSKELETAL:No Clubbing/cyanosis;muscles-grossly intact. OA INVESTIGATIONS, reviewed in the clinical context: October 23: White count 11.8 hemoglobin 10.2 platelets 169 sodium 132 potassium 3.1 BUN 23 creatinine 2.97 Influenza type A, diabetes, RSV, COVID-19: Not detected Chest x-ray film personally reviewed by me-some venous prominence, hyperinflation EKG tracing personally reviewed by me-poor quality. Sinus rhythm. Nonspecific changes Assessment and plan: -Acute. Fluid overload from malfunctioning dialysis catheter patient not able to have dialysis.: Slow to respond New hemodialysis catheter placed by Dr. Fisher . Hemodialysis today. 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 Biopsy showed severe interstitial fibrosis and tubular atrophy. on hemodialysis being on dialysis since July 2022 -Anemia of chronic kidney disease -Chronic kidney disease minimal bone disease maintained on Renvela. -monoclonal gammopathy, currently on chemotherapy -Essential Hypertension Toprol-XL 50 mg daily at bedtime amlodipine 5 mg twice a day -Hyperlipidemia Zetia 10 mg daily at bedtime -Hypothyroidism Synthroid 112 g a day -Gastroesophageal reflux disease Pepcid when necessary -Primary osteoarthritis Tylenol as needed -History of ovarian cancer status post hysterectomy -Peripheral vascular disease of the left leg At aspirin -Chronic spinal stenosis -Irritable bowel syndrome First hemodialysis today. Possibly need the same tomorrow. Other medications to continue.
[2022-10-25] MEDS: LEVOTHYROXINE 112 MCG TAB PO SCH (05:54)
[2022-10-25] MEDS ORDERED: dexAMETHasone 4 MG TAB PO SCH (07:30)
[2022-10-25] MEDS: amLODIPine 5 MG TAB PO SCH (09:14)
[2022-10-25] MEDS: ACYCLOVIR 200 MG CAP PO SCH (09:14)
[2022-10-25] MEDS: PSYLLIUM HUSK 100% 6 GM PACKET PO SCH (09:14)
[2022-10-25] MEDS: buPROPion XL 150 MG TAB.ER.24H PO SCH (09:15)
[2022-10-25 09:52] LABS: African American GFR (CKD) 20 (>60 ml/min/1.73 sqM); Anion Gap 9 mmol/L; Blood Urea Nitrogen 23 mg/dL (7-17); Calcium 7.8 mg/dL (8.4-10.2); Carbon Dioxide 28 mmol/L (22-30); Chloride 93 mmol/L (98-107); Glucose 187 mg/dL (74-99); Non-African American GFR(CKD) 17 (>60 ml/min/1.73 sqM); Potassium 3.7 mmol/L (3.5-5.1); Sodium 130 mmol/L (137-145)
[2022-10-25] MEDS: ALBUTEROL NEBULIZED 2.5 MG/3 ML INHALATION PRN (09:58)
--- NOTE | 2022-10-25 12:04 | P.PN ---
Subjective Patient is seen for follow-up for end-stage renal disease. Patient was admitted due to malfunctioning dialysis catheter. A new catheter was placed on 10/23/2022 Patient was dialyzed yesterday with UF of 2.9 L. Respiratory status has improved however still patient still remains mildly short of breath. Patient is scheduled for an extra treatment today mostly for volume overload. Objective - Vital Signs Vital signs: Vital Signs Temp 99.3 F 10/25/22 07:17 Pulse 80 10/25/22 10:11 Resp 19 10/25/22 09:15 BP 125/72 10/25/22 07:17 Pulse Ox 92 L 10/25/22 07:17 FiO2 Intake & Output 10/24/22 10/25/22 10/25/22 18:59 06:59 18:59 Intake Total 2900 Output Total 700 Balance 2200 Intake: Hemodialysis 2900 Output: Hemodialysis 700 Other: # Voids 1 # Bowel Movements 2 - Exam Awake, comfortable, no acute distress Examination of the heart S1 and S2 Examination of the lungs decreased breath sounds at the bases with basilar crackles Abdomen is soft nontender Examination of the lower extremities shows edema 2+ bilaterally [employer]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 End-stage renal disease on hemodialysis on a Monday schedule. Etiology is biopsy proven proliferative GN with monoclonal IgG KAPPA deposits with severe interstitial fibrosis. 2. Permacath malfunction status post new permacath placement on 10/23/2022 3. Volume overload 4. Metabolic bone disease 5. Hypokalemia most likely associated with diarrhea 6. Diarrhea rule out C. diff colitis Plan: Repeat hemodialysis today mostly ultrafiltration for volume overload. Patient will be dialyzed tomorrow as it is her usual scheduled treatment today. This could be done as outpatient if she is discharged today.
[2022-10-25 14:38] VITALS: BP 136/75; PULSE 87; RESP 20; TEMP 98
--- NOTE | 2022-10-25 16:27 | P.DS ---
Providers Date of admission: 10/22/22 18:20 Expected date of discharge: 10/25/22 Attending physician: Harry Yoo Consults: 10/22/22 18:20 Consult Physician Urgent Consulting Provider: Tobias Donaldson Consult Reason/Comments: Dialysis catheter placement Do you want consulting provider notified?: Already Contacted Consult Physician Urgent Consulting Provider: Gaye Dunbar Consult Reason/Comments: Chronic renal failure Do you want consulting provider notified?: Already Contacted Primary care physician: [facility] Course: Chief Complaint: Short of breath This is a pleasant 77 years old female with past medical history of GERD/Reflux, Hypertension, Osteoarthritis hypothyroidism, history of Ovarian cancer, chronic kidney disease (3B), PVD- left leg ., spinal stenosis, arthritis & spurs left hip., IBS., hx pancreatitis., occasional vertigo., left eye macular hole, history of 10/12/21 ESBL E.coli, Cholecystectomy, She is following up with Dr. Dominguez and she's getting chemotherapy for her monoclonal gammopathy, patient has been on hemodialysis since July 2022 Patient presents increasing shortness of breath. Lower extremity edema. She says dialysis catheter not working well since June. Unable to dialysis this Monday or Monday. Also decreased dialysis on Monday. Earlier today dialysis catheter was replaced by Dr. Fisher from vascular. Also has a cord. Congested cough. No fever no chills. Decreased appetite. October 24: Patient is getting dialyzed this morning. Short of breath. Did eat some. Home medications continued. 2900 mL removed with hemodialysis today. October 25: Patient again hemodialyzed today. Close to 3000 mL removed. Breathing much better. Patient has been having low oxygen. [place] to have chronic hypoxia from underlying COPD. Patient is ex-smoker. Spoke to the returned case inspector nurse. Discharge patient home on 2 L of oxygen. Discussion and discharge planning more than 35 minutes Past medical history to include: Hemodialysis since July 2022:, Anemia of chronic disease, monoclonal gammopathy getting chemotherapy, essential hypertension, hyperlipidemia, hypothyroid, GERD, osteomyelitis arthritis, history of ovarian cancer, PAD, spinal stenosis, IBS Social history: Smoked less than 1 pack a day, stopped smoking 4 years ago. No alcohol. Physical examination: VITAL SIGNS: 98.7, 86, 17, 91/60, 95% on 4 L GENERAL: [BMI 32.6, reclining, breathing better EYES: Pupils equal. Conjunctiva normal. HEENT: External appearance of nose and ears normal, oral cavity grossly normal. NECK: JVD possibly raised; masses not palpable. HEART: First and second heart sounds are normal; edema present. LUNGS: Respiratory rate increased; basal crackles. ABDOMEN: Soft, nontender, liver spleen not palpable, no masses palpable. PSYCH: Alert and oriented x3; mood and affect normal. MUSCULOSKELETAL:No Clubbing/cyanosis;muscles-grossly intact. OA INVESTIGATIONS, reviewed in the clinical context: October 25: Potassium 3.7 BUN 23 creatinine 2.6 to October 23: White count 11.8 hemoglobin 10.2 platelets 169 sodium 132 potassium 3.1 BUN 23 creatinine 2.97 Influenza type A, diabetes, RSV, COVID-19: Not detected Chest x-ray film personally reviewed by me-some venous prominence, hyperinflation EKG tracing personally reviewed by me-poor quality. Sinus rhythm. Nonspecific changes Assessment and plan: -Acute. Fluid overload from malfunctioning dialysis catheter patient not able to have dialysis.: Better New hemodialysis catheter placed by Dr. Fisher . hemodialyzed yesterday and today. 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 Biopsy showed severe interstitial fibrosis and tubular atrophy. on hemodialysis being on dialysis since July 2022 -Anemia of chronic kidney disease -Chronic kidney disease minimal bone disease maintained on Renvela. -monoclonal gammopathy, currently on chemotherapy -Essential Hypertension Toprol-XL 50 mg daily at bedtime amlodipine 5 mg twice a day -Hyperlipidemia Zetia 10 mg daily at bedtime -Hypothyroidism Synthroid 112 g a day -Gastroesophageal reflux disease Pepcid when necessary -Chronic hypoxic respiratory failure from COPD. Discharge on 2 L oxygen -Primary osteoarthritis Tylenol as needed -History of ovarian cancer status post hysterectomy -Peripheral vascular disease of the left leg At aspirin -Chronic spinal stenosis -Irritable bowel syndrome Disposition: Home Patient Condition at Discharge: Stable Plan - Discharge Summary Discharge Rx Participant: No New Discharge Prescriptions: New Psyllium Husk 100% [Metamucil Packet] 6 gm PO DAILY packet Continue buPROPion XL [Wellbutrin XL] 150 mg PO DAILY amLODIPine BESYLATE 5 mg PO BID Magnesium Chloride [Mag64] 64 mg PO HS ALPRAZolam [Xanax] 0.375 mg PO DAILY PRN PRN Reason: Anxiety Levothyroxine Sodium [Synthroid] 112 mcg PO DAILY Acyclovir [Zovirax] 400 mg PO BID Albuterol Inhaler [Ventolin Hfa Inhaler] 2 puff INHALATION RT-QID PRN PRN Reason: Shortness Of Breath Metoprolol Succinate (ER) [Toprol XL] 50 mg PO HS Metoclopramide [Reglan] 5 mg PO Q6H PRN PRN Reason: Nausea Ezetimibe [Zetia] 10 mg PO HS Ondansetron [Zofran] 4 mg PO Q8HR PRN #30 tab PRN Reason: Nausea dexAMETHasone [Decadron] 40 mg PO TU Discharge Medication List amLODIPine BESYLATE 5 mg PO BID 05/13/18 [History] buPROPion XL [Wellbutrin XL] 150 mg PO DAILY 05/13/18 [History] ALPRAZolam [Xanax] 0.375 mg PO DAILY PRN 10/12/21 [History] Magnesium Chloride [Mag64] 64 mg PO HS 10/12/21 [History] Ezetimibe [Zetia] 10 mg PO HS 06/13/22 [History] Levothyroxine Sodium [Synthroid] 112 mcg PO DAILY 06/13/22 [History] Acyclovir [Zovirax] 400 mg PO BID 07/18/22 [History] Ondansetron [Zofran] 4 mg PO Q8HR PRN #30 tab 07/22/22 [Rx] Albuterol Inhaler [Ventolin Hfa Inhaler] 2 puff INHALATION RT-QID PRN 10/22/22 [History] Metoclopramide [Reglan] 5 mg PO Q6H PRN 10/22/22 [History] Metoprolol Succinate (ER) [Toprol XL] 50 mg PO HS 10/22/22 [History] dexAMETHasone [Decadron] 40 mg PO TU 10/22/22 [History] Psyllium Husk 100% [Metamucil Packet] 6 gm PO DAILY packet 10/25/22 [Rx] Follow up Appointment(s)/Referral(s): Joe Solorzano DO [Primary Care Provider] - 1-2 days (office will call with appointment time) [facility] [NON-STAFF] - As Needed (oxygen)
== END 2022-10-25 17:31 | disposition home or self-care (01) ==
LOC: EC 15:39 → 4SSUR 18:20 → INTOOBSV 18:20 → 4SSUR 20:06 → UNDODISIN 10-25 17:31
PROVIDERS: ADMIT Hospitalist; ATTEND Hospitalist
DX: T82.49XA Other complication of vascular dialysis catheter, initial encounter (principal); Y81.1 Therapeutic (nonsurgical) and rehabilitative general- and plastic-surgery devices associated with adverse incidents; Y84.8 Other medical procedures as the cause of abnormal reaction of the patient, or of later complication, without mention of misadventure at the time of the procedure; I12.0 Hypertensive chronic kidney disease with stage 5 chronic kidney disease or end stage renal disease; N18.6 End stage renal disease; E87.70 Fluid overload, unspecified; E87.6 Hypokalemia; M89.8X9 Other specified disorders of bone, unspecified site; R19.7 Diarrhea, unspecified; J44.9 Chronic obstructive pulmonary disease, unspecified; J96.11 Chronic respiratory failure with hypoxia; K21.9 Gastro-esophageal reflux disease without esophagitis; F41.9 Anxiety disorder, unspecified; F32.A Depression, unspecified; E03.9 Hypothyroidism, unspecified; D63.1 Anemia in chronic kidney disease; D47.2 Monoclonal gammopathy; E78.5 Hyperlipidemia, unspecified; M19.91 Primary osteoarthritis, unspecified site; I73.9 Peripheral vascular disease, unspecified; K58.9 Irritable bowel syndrome, unspecified; M48.00 Spinal stenosis, site unspecified; Z85.43 Personal history of malignant neoplasm of ovary; Z87.891 Personal history of nicotine dependence; Z90.710 Acquired absence of both cervix and uterus; Z20.822 Contact with and (suspected) exposure to COVID-19; Z79.899 Other long term (current) drug therapy; Z79.890 Hormone replacement therapy; Z88.1 Allergy status to other antibiotic agents; Z88.5 Allergy status to narcotic agent
CPT/HCPCS: 99291; 36415; 94640 ×5; 94760 ×2; 93005; 36558; 77001; 83880; 80053 ×2; 80048; 83735; 84100; 84484; 85025 ×2; 85610; 85730; 87636; 71045 ×2; G0378 ×4; C1769 ×2; J2250; J0690; J2001; J3010; 90935

== ENCOUNTER 2022-11-16 00:14 | Observation (INO) | payer MEDICARE ==
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
[2022-11-16] MEDS ORDERED: NALOXONE 0.4 MG/ML 1 ML VIAL IV PRN (05:29)
[2022-11-16] MEDS ORDERED: ONDANSETRON 4 MG/2 ML VIAL IVP PRN (05:29)
[2022-11-16] MEDS ORDERED: MORPHINE SULFATE 4 MG/ML SYRINGE IV PRN (05:29)
[2022-11-16] MEDS ORDERED: SODIUM CHLORIDE 0.9% 1,000 ML IV SCH (05:30)
--- NOTE | 2022-11-16 08:40 | CT ---
EXAMINATION TYPE: CT brain wo con DATE OF EXAM: 11/16/2022 COMPARISON: None HISTORY: Altered mental status Unenhanced CT of the brain was performed. The ventricles, basal cisterns and sulci overlying the cerebral convexities demonstrate mild enlargement. There is no evidence for intracranial hemorrhage or sulcal effacement. There is decreased attenuation about the periventricular white matter and deep white matter of both cerebral hemispheres, compatible with chronic small vessel ischemia. Differential diagnosis does include demyelination. No mass effects are seen.No midline shift. Osseous calvarium is intact. Right maxillary chronic sinusitis. If symptoms persist consider MRI. IMPRESSION: 1. Age related atrophic and chronic small vessel ischemic change without acute intracranial process seen at this time. MTDD
--- NOTE | 2022-11-16 08:41 | XR ---
EXAMINATION TYPE: XR chest 2V DATE OF EXAM: 11/16/2022 COMPARISON: 07/26/2017 HISTORY: Shortness of breath TECHNIQUE: Frontal and lateral views of the chest are obtained. FINDINGS: Scattered senescent parenchymal changes noted. Hyperinflation compatible with COPD. No evidence for infiltrate. No evidence for atelectasis. Large bore central venous line with its distal tip overlying the SVC/right atrial region. Heart size is stable. Mediastinal structures are stable and grossly unremarkable. No evidence for hilar prominence. Degenerative changes dorsal spine. IMPRESSION: 1. No evidence for acute pulmonary disease. MTDD
[2022-11-16] MEDS ORDERED: IPRATROPIUM-ALBUTEROL 3 ML NEB INHALATION PRN (10:19)
[2022-11-16] MEDS ORDERED: ACETAMINOPHEN TAB 325 MG TAB PO PRN (10:20)
[2022-11-16] MEDS: LOPERAMIDE 2 MG CAP PO PRN ×2 (11:13→17:37)
[2022-11-16] MEDS: MAGNESIUM OXIDE 400 MG TAB PO SCH (11:13)
[2022-11-16 12:55] LABS: Appearance,Urine Cloudy (Clear); Bacteria,Urine Rare /hpf; Bilirubin,Urine Negative (Negative); Blood,Urine Negative (Negative); Color,Urine Yellow; Glucose,Urine (UA) Trace (Negative); Ketones,Urine Negative (Negative); Leukocyte Esterase,Urine Large (Negative); Nitrite,Urine Negative (Negative); PH, Urine 8.5 (5.0-8.0); Protein,Urine 3+ (Negative); RBC,Urine 6 /hpf (0-5); Squamous Epithelial Cell,Urine <1 /hpf (0-4); Urobilinogen,Urine <2.0 mg/dL (<2.0); WBC,Urine >182 /hpf (0-5)
[2022-11-16] MEDS: CHOLESTYRAMINE (WITH SUGAR) 4 GM PACKET PO SCH (16:04)
--- NOTE | 2022-11-16 18:15 | P.HPIM ---
History of Present Illness H&P Date: 11/16/22 This is a pleasant 77 year old female with medical history of monoclonal gammopathy of renal significance and chronic kidney disease maintained on hemodialysis MWF schedule and on course of IV chemotherapy. Patients dtr has noticed progressive weakness over the last week. Went to hemodialysis on Monday and did ok, Monday had chemotherapy per usual schedule. Patient had difficulty getting into the house and had to scoot in on her bottom due to weakness and was noted to have acute confusion and not using pulse oximeter appropriately. Patients dtr also states she was agitated. Has been having loose stools not oncommon for her due to the chemotherapy. Patient is also noted to have fever and abnormal urinalysis. The patient was admitted to the hospital for fever and altered mental status. Currently alert 3. Brain CT reveals age-related atrophic and chronic small vessel ischemic changes without acute intracranial process. Patient was hydrated and a repeat urinalysis does reveal continued abnormal urine and we'll treat empirically for a urinary tract infection pending urine cultures. Nephrology has been consulted patient will undergo hemodialysis per usual schedule. Resume appropriate home medications including Synthroid patient has been out of for the last 8 days. A TSH is elevated which is expected to improve once patient is resumed on her Synthroid. REVIEW OF SYSTEMS: CONSTITUTIONAL: No fever, no malaise, no fatigue. HEENT: No recent visual problems or hearing problems. Denied any sore throat. CARDIOVASCULAR: No chest pain, orthopnea, PND, no palpitations, no syncope. PULMONARY: No shortness of breath, no cough, no hemoptysis. GASTROINTESTINAL: No diarrhea, no nausea, no vomiting, no abdominal pain. NEUROLOGICAL: No headaches, no weakness, no numbness. HEMATOLOGICAL: Denies any bleeding or petechiae. GENITOURINARY: Denies any burning micturition, frequency, or urgency. MUSCULOSKELETAL/RHEUMATOLOGICAL: Denies any joint pain, swelling, or any muscle pain. ENDOCRINE: Denies any polyuria or polydipsia. The rest of the 14-point review of systems is negative. PHYSICAL EXAMINATION: GENERAL: The patient is alert and oriented x3, not in any acute distress. Well developed, well nourished. HEENT: Pupils are round and equally reacting to light. EOMI. No scleral icterus. No conjunctival pallor. Normocephalic, atraumatic. No pharyngeal erythema. No thyromegaly. CARDIOVASCULAR: S1 and S2 present. No murmurs, rubs, or gallops. PULMONARY: Chest is clear to auscultation, no wheezing or crackles. ABDOMEN: Soft, nontender, nondistended, normoactive bowel sounds. No palpable organomegaly. MUSCULOSKELETAL: No joint swelling or deformity. EXTREMITIES: No cyanosis, clubbing, or pedal edema. NEUROLOGICAL: Gross neurological examination did not reveal any focal deficits. SKIN: No rashes. 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 acute UTI Hypothyroidism resumed on Synthroid History of hypertension Gastroesophageal reflux disease Chronic kidney disease stage IIIB maintained on hemodialysis Monday Former Smoker Anxiety/Depression GI prophylaxis DVT prophylaxis Full Code Plan Consult nephrology patient to undergo hemodialysis Continue IV antibiotic coverage with IV ceftriaxone pending urine culture Continue supportive care monitor for fever C. diff is negative continue with antiemetics Continue on cools solution for the oral thrush and tongue ulcerations PT/OT consultation The impression and plan of care has been dictated by Anita Santiago, Nurse Practitioner as directed. Dr. Catia MD I have performed a history and physical examination and medical decision making of this patient, discussed the same with the dictator, and agree with the dictators assessment and plan as written, documented as a scribe. Based on total visit time, I have performed more than 50% of this visit. Past Medical History Past Medical History: Eye Disorder, GERD/Reflux, Hypertension, Osteoarthritis (OA), Renal Disease, Thyroid Disorder, Vascular Disorder Additional Past Medical History / Comment(s): Ovarian cancer, chronic kidney disease (3B), PVD- left leg ., spinal stenosis, arthritis & spurs left hip., IBS., hx pancreatitis., occasional vertigo., left eye macular hole. History of Any Multi-Drug Resistant Organisms: None Reported Date of last positivie culture/infection: 10/12/21 ESBL E.coli MDRO Source:: Urine Past Surgical History: Cholecystectomy, Hysterectomy Additional Past Surgical History / Comment(s): trigger finger x5., carpal tunnel tahir., ganglion cyst Past Anesthesia/Blood Transfusion Reactions: Motion Sickness, Postoperative Nausea & Vomiting (PONV) Additional Past Anesthesia/Blood Transfusion Reaction / Comment(s): mother=ponv Past Psychological History: Anxiety, Depression Smoking Status: Former smoker Past Alcohol Use History: None Reported Additional Past Alcohol Use History / Comment(s): quit smoking 4 years ago, hx of less than 1 ppd. Past Drug Use History: None Reported - Past Family History Father Family Medical History: Coronary Artery Disease (CAD) Additional Family Medical History / Comment(s): states grandaughter= leukemia. grandmother=multiple myeloma Medications and Allergies Home Medications Medication Instructions Recorded Confirmed Type amLODIPine BESYLATE 5 mg PO BID 05/13/18 11/16/22 History ALPRAZolam [Xanax] 0.375 mg PO DAILY PRN 10/12/21 11/16/22 History Magnesium Chloride [Mag64] 64 mg PO HS 10/12/21 11/16/22 History Ezetimibe [Zetia] 10 mg PO HS 06/13/22 11/16/22 History Levothyroxine Sodium [Synthroid] 112 mcg PO DAILY 06/13/22 11/16/22 History Acyclovir [Zovirax] 400 mg PO BID 07/18/22 11/16/22 History Ondansetron [Zofran] 4 mg PO Q8HR PRN #30 tab 07/22/22 11/16/22 Rx Metoclopramide [Reglan] 5 mg PO Q6H PRN 10/22/22 11/16/22 History Metoprolol Succinate (ER) [Toprol 50 mg PO HS 10/22/22 11/16/22 History XL] dexAMETHasone [Decadron] 40 mg PO TU 10/22/22 11/16/22 History Ipratropium/Albuter 20-100Mcg 1 puff INHALATION RT-TID PRN 11/16/22 11/16/22 History [Combivent Respimat 20-100Mcg Inhaler] buPROPion XL [Wellbutrin XL] 300 mg PO DAILY 11/16/22 11/16/22 History Allergies Allergy/AdvReac Type Severity Reaction Status Date / Time tetracycline Allergy Rash/Hives, Verified 11/16/22 06:14 headache hydromorphone [From Dilaudid] AdvReac Severe Nausea & Verified 11/16/22 06:14 Vomiting azithromycin AdvReac Nausea & Verified 11/16/22 06:14 Vomiting Physical Exam Vitals: Vital Signs Temp Pulse Pulse Resp BP BP Pulse Ox 11/16/22 14:14 98.2 F 83 16 133/68 95 11/16/22 07:23 98 F 72 18 116/77 98 11/16/22 06:23 97.9 F 73 19 149/68 94 L 11/16/22 05:43 98.9 F 11/16/22 05:42 68 20 123/84 95 Intake and Output 11/15/22 11/16/22 11/16/22 22:59 06:59 14:59 Intake Total 120 Balance 120 Intake: Oral 120 Other: Voiding Method Toilet Bedside Commode # Voids 5 # Bowel Movements 5 Weight 79.379 kg Results Labs: Abnormal Lab Results - Last 24 Hours (Table) 11/16/22 Range/Units 01:00 Urine Appearance Cloudy H (Clear) Urine pH 8.5 H (5.0-8.0) Urine Protein 3+ H (Negative) Urine Glucose (UA) Trace H (Negative) Ur Leukocyte Esterase Large H (Negative) Urine RBC 6 H (0-5) /hpf Urine WBC >182 H (0-5) /hpf Urine WBC Clumps Few H (None) /hpf Urine Bacteria Rare H (None) /hpf Thrombosis Risk Factor Assmnt - Choose All That Apply Any of the Below Risk Factors Present?: Yes Each Factor Represents 1 point: Obesity (BMI >25) Other Risk Factors: Yes Each Risk Factor Represents 3 Points: Age 75 years or older Other congenital or acquired thrombophilia - If yes, enter type in comment: No Thrombosis Risk Factor Assessment Total Risk Factor Score: 4 Thrombosis Risk Factor Assessment Level: Moderate Risk Assessment and Plan Time with Patient: Less than 30
[2022-11-17] MEDS: EZETIMIBE 10 MG TAB PO SCH ×2 (00:36→21:44)
[2022-11-17] MEDS: MAG HYDROX/AL HYDROX/SIMETH 30 ML, LIDOCAINE VISCOUS 2% 30 ML, NYSTATIN 100,000 UNIT/ML... PO SCH ×15 (00:36→21:45)
[2022-11-17] MEDS: MAGNESIUM OXIDE 400 MG TAB PO SCH ×3 (00:36→21:44)
[2022-11-17] MEDS: METOPROLOL SUCCINATE (ER) 50 MG TAB.ER.24H PO SCH ×2 (00:36→21:45)
[2022-11-17] MEDS: LEVOTHYROXINE 112 MCG TAB PO SCH (06:28)
[2022-11-17 09:07] LABS: ALT 20 U/L (8-44); AST 27 U/L (13-35); Alkaline Phosphatase 67 U/L (41-126); Blood Urea Nitrogen 7.7 mg/dL (9.0-27.0); Calcium 7.9 mg/dL (8.7-10.3); Carbon Dioxide 28.2 mmol/L (21.6-31.8); Chloride 100 mmol/L (96-109); Globulin 1.5 d/dL (1.6-3.3); Glucose 78 mg/dL (70-110); Magnesium 1.7 mg/dL (1.5-2.4); Potassium 3.8 mmol/L (3.5-5.5); Sodium 137 mmol/L (135-145); Total Bilirubin <0.2 mg/dL (0.3-1.2); Total Protein 4.5 d/dL (6.2-8.2)
[2022-11-17] MEDS: LOPERAMIDE 2 MG CAP PO PRN (09:13)
[2022-11-17] MEDS: FAMOTIDINE 20 MG TAB PO SCH (09:13)
[2022-11-17] MEDS: buPROPion XL 300 MG TAB.ER.24H PO SCH (09:13)
[2022-11-17] MEDS: CHOLESTYRAMINE (WITH SUGAR) 4 GM PACKET PO SCH ×2 (09:14→21:44)
[2022-11-17 09:48] LABS: Basophils # (A) 0.01 X 10*3/uL (0.00-0.10); Basophils % (A) 0.1 %; Eosinophils % (A) 1.5 %; HCT 27.1 % (37.2-46.3); HGB 8.6 d/dL (12.0-15.0); Lymphocytes # (A) 0.91 X 10*3/uL (0.90-5.00); Lymphocytes % (A) 13.3 %; MCH 32.5 pg (27.0-32.0); MCHC 31.7 d/dL (32.0-37.0); MCV 102.3 FL (80.0-97.0); Monocytes # (A) 0.47 X 10*3/uL (0.20-1.00); Monocytes % (A) 6.9 %; NRBC Per 100 WBC 0 X 10*3/uL (0.00-0.01); Neutrophils # (A) 5.26 X 10*3/uL (1.80-7.70); Neutrophils % (A) 76.7 %; Platelet Count 92 X 10*3/uL (140-440); RBC 2.65 X 10*6/uL (4.10-5.20); RDW 15.9 % (11.5-14.5); WBC 6.85 X 10*3/uL (4.50-10.00)
--- NOTE | 2022-11-17 13:31 | P.NPCON ---
History of Present Illness - Reason for Consult end stage renal disease - History of Present Illness Patient is a 77-year-old female with history of monoclonal come off the of renal significance and recently started hemodialysis. Patient is currently maintained on a Monday schedule. She was admitted to the hospital with extreme weakness and mental status changes post chemotherapy. Mental status has improved. There is no no history of fever. UA suggestive of underlying UTI with more than 182 WBCs. Patient has been started on antibiotics. She did receive fluid bolus initially. Status post hemodialysis yesterday. No significant complaints today. Overall patient feels well and mentation is back to baseline. Daughter is present at bedside Review of Systems As per HPI Past Medical History Past Medical History: Eye Disorder, GERD/Reflux, Hypertension, Osteoarthritis (OA), Renal Disease, Thyroid Disorder, Vascular Disorder Additional Past Medical History / Comment(s): Ovarian cancer, chronic kidney disease (3B), PVD- left leg ., spinal stenosis, arthritis & spurs left hip., IBS., hx pancreatitis., occasional vertigo., left eye macular hole. History of Any Multi-Drug Resistant Organisms: None Reported Date of last positivie culture/infection: 10/12/21 ESBL E.coli MDRO Source:: Urine Past Surgical History: Cholecystectomy, Hysterectomy Additional Past Surgical History / Comment(s): trigger finger x5., carpal tunnel tahir., ganglion cyst Past Anesthesia/Blood Transfusion Reactions: Motion Sickness, Postoperative Nausea & Vomiting (PONV) Additional Past Anesthesia/Blood Transfusion Reaction / Comment(s): mother=ponv Past Psychological History: Anxiety, Depression Smoking Status: Former smoker Past Alcohol Use History: None Reported Additional Past Alcohol Use History / Comment(s): quit smoking 4 years ago, hx of less than 1 ppd. Past Drug Use History: None Reported - Past Family History Father Family Medical History: Coronary Artery Disease (CAD) Additional Family Medical History / Comment(s): states grandaughter= leukemia. grandmother=multiple myeloma Medications and Allergies Home Medications Medication Instructions Recorded Confirmed Type amLODIPine BESYLATE 5 mg PO BID 05/13/18 11/16/22 History ALPRAZolam [Xanax] 0.375 mg PO DAILY PRN 10/12/21 11/16/22 History Magnesium Chloride [Mag64] 64 mg PO HS 10/12/21 11/16/22 History Ezetimibe [Zetia] 10 mg PO HS 06/13/22 11/16/22 History Levothyroxine Sodium [Synthroid] 112 mcg PO DAILY 06/13/22 11/16/22 History Acyclovir [Zovirax] 400 mg PO BID 07/18/22 11/16/22 History Ondansetron [Zofran] 4 mg PO Q8HR PRN #30 tab 07/22/22 11/16/22 Rx Metoclopramide [Reglan] 5 mg PO Q6H PRN 10/22/22 11/16/22 History Metoprolol Succinate (ER) [Toprol 50 mg PO HS 10/22/22 11/16/22 History XL] dexAMETHasone [Decadron] 40 mg PO TU 10/22/22 11/16/22 History Ipratropium/Albuter 20-100Mcg 1 puff INHALATION RT-TID PRN 11/16/22 11/16/22 History [Combivent Respimat 20-100Mcg Inhaler] buPROPion XL [Wellbutrin XL] 300 mg PO DAILY 11/16/22 11/16/22 History Allergies Allergy/AdvReac Type Severity Reaction Status Date / Time tetracycline Allergy Rash/Hives, Verified 11/16/22 06:14 headache hydromorphone [From Dilaudid] AdvReac Severe Nausea & Verified 11/16/22 06:14 Vomiting azithromycin AdvReac Nausea & Verified 11/16/22 06:14 Vomiting Physical Exam Vitals: Vital Signs Temp Pulse Resp BP Pulse Ox 11/17/22 07:00 98.3 F 79 18 151/68 97 11/17/22 01:33 97.6 F 96 17 155/74 95 11/17/22 00:50 97.6 F 95 20 136/61 11/17/22 00:34 91 128/78 96 11/16/22 22:09 89 18 11/16/22 19:06 98.3 F 89 16 146/74 97 11/16/22 14:14 98.2 F 83 16 133/68 95 Intake and Output 11/16/22 11/17/22 11/17/22 22:59 06:59 14:59 Intake Total 500 240 Output Total 2500 Balance -1999 240 Intake: Oral 240 Hemodialysis 500 Output: Hemodialysis 2500 Other: Voiding Method Toilet Toilet Toilet Bedside Commode Bedside Commode Bedside Commode # Voids 1 # Bowel Movements 2 Weight 79.379 kg Awake, comfortable, no acute distress Examination of the heart S1 and S2 Examination of the lungs bilateral breath sounds are heard Abdomen is soft nontender Examination of lower extremities shows no evidence of edema 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 End-stage renal disease on hemodialysis on a Monday vent is a Monday schedule. 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 Mental status changes most likely related to underlying infection and UTI 3. UTI maintained on antibiotics, urine culture is pending 4. Monoclonal gammopathy maintained on chemotherapy Plan: Hemodialysis in a.m. Continue with antibiotics
--- NOTE | 2022-11-17 16:55 | P.PN ---
Subjective Progress Note Date: 11/17/22 This is a pleasant 77 year old female with medical history of monoclonal gammopathy of renal significance and chronic kidney disease maintained on hemodialysis MWF schedule and on course of IV chemotherapy. Patients dtr has noticed progressive weakness over the last week. Went to hemodialysis on Monday and did ok, Monday had chemotherapy per usual schedule. Patient had difficulty getting into the house and had to scoot in on her bottom due to weakness and was noted to have acute confusion and not using pulse oximeter appropriately. Patients dtr also states she was agitated. Has been having loose stools not oncommon for her due to the chemotherapy. Patient is also noted to have fever and abnormal urinalysis. The patient was admitted to the hospital for fever and altered mental status. Currently alert 3. Brain CT reveals age-related atrophic and chronic small vessel ischemic changes without acute intracranial process. Patient was hydrated and a repeat urinalysis does reveal continued abnormal urine and we'll treat empirically for a urinary tract infection pending urine cultures. Nephrology has been consulted patient will undergo hemodialysis per usual schedule. Resume appropriate home medications including Synthroid patient has been out of for the last 8 days. A TSH is elevated which is expected to improve once patient is resumed on her Synthroid. 11/17/2022 Patient is evaluated today sitting up in chair. C.Dif is negative diarrheas has improved continues on imodium and questran. Preliminary urine culture showing gram negative bacilli continues on IV ceftriaxone. Had hemodialysis late last night. sodium normalized creatinine 2.2. 93% on room air. Fever has improved also. REVIEW OF SYSTEMS: CONSTITUTIONAL: No fever, no malaise, no fatigue. HEENT: No recent visual problems or hearing problems. Denied any sore throat. CARDIOVASCULAR: No chest pain, orthopnea, PND, no palpitations, no syncope. PULMONARY: No shortness of breath, no cough, no hemoptysis. GASTROINTESTINAL: No diarrhea, no nausea, no vomiting, no abdominal pain. NEUROLOGICAL: No headaches, no weakness, no numbness. PHYSICAL EXAMINATION: GENERAL: The patient is alert and oriented x3, not in any acute distress. Well developed, well nourished. HEENT: Pupils are round and equally reacting to light. EOMI. No scleral icterus. No conjunctival pallor. Normocephalic, atraumatic. No pharyngeal erythema. No thyromegaly. CARDIOVASCULAR: S1 and S2 present. No murmurs, rubs, or gallops. PULMONARY: Chest is clear to auscultation, no wheezing or crackles. ABDOMEN: Soft, nontender, nondistended, normoactive bowel sounds. No palpable organomegaly. MUSCULOSKELETAL: No joint swelling or deformity. EXTREMITIES: No cyanosis, clubbing, or pedal edema. NEUROLOGICAL: Gross neurological examination did not reveal any focal deficits. SKIN: No rashes. 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 Diarrhea chemotherapy induced Fever possible chemotherapy induced Hypomagnesemia Acute urinary tract infection with sepsis urine culture showing gram negative bacilli Hypothyroidism resumed on Synthroid History of hypertension Gastroesophageal reflux disease Chronic kidney disease stage IIIB maintained on hemodialysis Monday Former Smoker Anxiety/Depression GI prophylaxis DVT prophylaxis Full Code Plan Continue IV antibiotic coverage with IV ceftriaxone pending urine culture Continue supportive care monitor for fever Continue on cools solution for the oral thrush and tongue ulcerations Nephrology following continues on MWF hemodialysis PT/OT consultation The impression and plan of care has been dictated by Anita Santiago, Nurse Practitioner as directed. Dr. Catia MD I have performed a history and physical examination and medical decision making of this patient, discussed the same with the dictator, and agree with the dictators assessment and plan as written, documented as a scribe. Based on total visit time, I have performed more than 50% of this visit. Objective - Vital Signs Vital signs: Vital Signs Temp 98 F 11/17/22 14:04 Pulse 78 11/17/22 14:04 Resp 18 11/17/22 14:04 BP 111/72 11/17/22 14:04 Pulse Ox 93 L 11/17/22 14:04 FiO2 Intake & Output 11/16/22 11/17/22 11/17/22 18:59 06:59 18:59 Intake Total 120 500 360 Output Total 2500 Balance 120 -2000 360 Weight 79.379 kg Intake: Oral 120 360 Hemodialysis 500 Output: Hemodialysis 2500 Other: Voiding Method Toilet Toilet Toilet Bedside Commode Bedside Commode Bedside Commode # Voids 5 1 1 # Bowel Movements 5 2 3 - Labs CBC & Chem 7: 11/17/22 05:56 11/17/22 05:56 Labs: Abnormal Lab Results - Last 24 Hours (Table) 11/17/22 11/17/22 Range/Units 05:56 05:56 RBC 2.65 L (4.10-5.20) X 10*6/uL Hgb 8.6 L (12.0-15.0) d/dL Hct 27.1 L (37.2-46.3) % MCV 102.3 H (80.0-97.0) FL MCH 32.5 H (27.0-32.0) pg MCHC 31.7 L (32.0-37.0) d/dL RDW 15.9 H (11.5-14.5) % Plt Count 92 L (140-440) X 10*3/uL BUN 7.7 L (9.0-27.0) mg/dL Creatinine 2.2 H (0.6-1.5) mg/dL Est GFR (CKD-EPI) 23 L (>=60) BUN/Creatinine Ratio 3.50 L (12.00-20.00) Ratio Calcium 7.9 L (8.7-10.3) mg/dL Total Bilirubin <0.2 L (0.3-1.2) mg/dL Total Protein 4.5 L (6.2-8.2) d/dL Albumin 3.0 L (3.8-4.9) d/dL Globulin 1.5 L (1.6-3.3) d/dL Microbiology - Last 24 Hours (Table) 11/16/22 01:00 Urine Culture - Preliminary Urine,Voided Gram Neg Bacilli Assessment and Plan Time with Patient: Less than 30
[2022-11-18] MEDS: LEVOTHYROXINE 112 MCG TAB PO SCH (06:00)
[2022-11-18] MEDS: buPROPion XL 300 MG TAB.ER.24H PO SCH (08:56)
[2022-11-18] MEDS: MAGNESIUM OXIDE 400 MG TAB PO SCH (08:56)
[2022-11-18] MEDS: MAG HYDROX/AL HYDROX/SIMETH 30 ML, LIDOCAINE VISCOUS 2% 30 ML, NYSTATIN 100,000 UNIT/ML... PO SCH ×6 (08:56→15:11)
[2022-11-18] MEDS: CHOLESTYRAMINE (WITH SUGAR) 4 GM PACKET PO SCH (08:56)
[2022-11-18] MEDS: LOPERAMIDE 2 MG CAP PO PRN ×2 (08:56→15:06)
[2022-11-18] MEDS: FAMOTIDINE 20 MG TAB PO SCH (08:57)
[2022-11-18 09:08] LABS: BUN/Creat Ratio 4.59 Ratio (12.00-20.00); Blood Urea Nitrogen 17.9 mg/dL (9.0-27.0); Calcium 8.1 mg/dL (8.7-10.3); Carbon Dioxide 24.8 mmol/L (21.6-31.8); Chloride 99 mmol/L (96-109); Glucose 80 mg/dL (70-110); Potassium 3.8 mmol/L (3.5-5.5); Sodium 136 mmol/L (135-145)
[2022-11-18] MEDS ORDERED: ALPRAZolam 0.25 MG TAB PO PRN (09:56)
[2022-11-18] MEDS ORDERED: ACYCLOVIR 200 MG CAP PO SCH (10:30)
[2022-11-18] MEDS ORDERED: FAMOTIDINE 20 MG TAB PO SCH (14:13)
[2022-11-18 17:46] VITALS: BP 162/74; PULSE 78; RESP 16; TEMP 97
[2022-11-18] MEDS ORDERED: amLODIPine 5 MG TAB PO SCH (21:00)
--- NOTE | 2022-11-19 22:22 | P.DS ---
Providers Date of admission: 11/16/22 05:36 Attending physician: Davin Banks Consults: 11/16/22 08:37 Consult Physician Urgent Consulting Provider: Nany Byrne Consult Reason/Comments: known. 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 Patient completed course of IV antibiotics in patient for the acute UTI and antibiotics worsened diarrhea likely and recommending no further antibiotics on discharge. Patient to continue on questran BID and imodium for the diarrhea, C.Dif is negative. Continue on same MWF hemodialysis schedule. Patient to repeat labs in 2 to 3 days. Follow up with oncology, nephrology, PCP on discharge. Synthroid has been refilled on discharge. Hospital Course This is a pleasant 77 year old female with medical history of monoclonal gammopathy of renal significance and chronic kidney disease maintained on hemodialysis MWF schedule and on course of IV chemotherapy. Patients dtr has noticed progressive weakness over the last week. Went to hemodialysis on Monday and did ok, Monday had chemotherapy per usual schedule. Patient had difficulty getting into the house and had to scoot in on her bottom due to weakness and was noted to have acute confusion. Patients dtr also states she was agitated. Has been having loose stools not oncommon for her due to the chemotherapy. Patient is also noted to have fever and abnormal urinalysis. The patient was admitted to the hospital for fever and altered mental status. Currently alert 3. Brain CT reveals age-related atrophic and chronic small vessel ischemic changes without acute intracranial process. Patient was hydrated and a repeat urinalysis does reveal continued abnormal urine and we'll treat empirically for a urinary tract infection and urine culture shows gram negative bacilli clinically patient is improving on IV ceftriaxone. Nephrology has been consulted patient has been continued on usual MWF hemodialysis schedule. Pt has been out of her synthroid for the last 8 days and has been resumed. A TSH is elevated which is expected to improve once patient is resumed on her Synthroid. C.Dif was checked due to the ongoing diarrhea was negative and patient is receiving questran and imodium therapy. Patient to continue on antidiarrheals on discharge and recommending no further antibiotics as this appeared to worsen the diarrhea. Patient is denying abdominal pain no nausea and vomiting patient is tolerating diet. Has no fever, no white count, no dysuria urgency or frequency noted Patient has no urinary retention. Patient is discharged home with above recommendations Please see medication reconciliation for a list of current medication. Thank you for allowing us to participate in the care of this patient. The impression and plan of care has been dictated by Anita Santiago Nurse Practitioner as directed. Dr. Catia MD I have performed a history and physical examination and medical decision making of this patient, discussed the same with the dictator, and agree with the dictators assessment and plan as written, documented as a scribe. Based on total visit time, I have performed more than 50% of this visit. Patient Condition at Discharge: Stable Plan - Discharge Summary Discharge Rx Participant: No New Discharge Prescriptions: New Famotidine [Pepcid] 20 mg PO Q48H #15 tab Loperamide [Imodium] 2 mg PO QID PRN cap PRN Reason: Diarrhea Cholestyramine (with Sugar) [Questran Packet] 4 gm PO BID@1000,1800 #20 packet Continue amLODIPine BESYLATE 5 mg PO BID Magnesium Chloride [Mag64] 64 mg PO HS ALPRAZolam [Xanax] 0.375 mg PO DAILY PRN PRN Reason: Anxiety Levothyroxine Sodium [Synthroid] 112 mcg PO DAILY Acyclovir [Zovirax] 400 mg PO BID Metoprolol Succinate (ER) [Toprol XL] 50 mg PO HS Metoclopramide [Reglan] 5 mg PO Q6H PRN PRN Reason: Nausea Ezetimibe [Zetia] 10 mg PO HS Ondansetron [Zofran] 4 mg PO Q8HR PRN #30 tab PRN Reason: Nausea dexAMETHasone [Decadron] 40 mg PO TU buPROPion XL [Wellbutrin XL] 300 mg PO DAILY Ipratropium/Albuter 20-100Mcg [Combivent Respimat 20-100Mcg Inhaler] 1 puff INHALATION RT-TID PRN PRN Reason: Shortness Of Breath Discharge Medication List amLODIPine BESYLATE 5 mg PO BID 12/23/18 [History] ALPRAZolam [Xanax] 0.375 mg PO DAILY PRN 10/12/21 [History] Magnesium Chloride [Mag64] 64 mg PO HS 10/12/21 [History] Ezetimibe [Zetia] 10 mg PO HS 06/13/22 [History] Levothyroxine Sodium [Synthroid] 112 mcg PO DAILY 06/13/22 [History] Acyclovir [Zovirax] 400 mg PO BID 07/18/22 [History] Ondansetron [Zofran] 4 mg PO Q8HR PRN #30 tab 07/22/22 [Rx] Metoclopramide [Reglan] 5 mg PO Q6H PRN 10/22/22 [History] Metoprolol Succinate (ER) [Toprol XL] 50 mg PO HS 10/22/22 [History] dexAMETHasone [Decadron] 40 mg PO TU 10/22/22 [History] Ipratropium/Albuter 20-100Mcg [Combivent Respimat 20-100Mcg Inhaler] 1 puff INHALATION RT-TID PRN 11/16/22 [History] buPROPion XL [Wellbutrin XL] 300 mg PO DAILY 11/16/22 [History] Cholestyramine (with Sugar) [Questran Packet] 4 gm PO BID@1000,1800 #20 packet 11/18/22 [Rx] Famotidine [Pepcid] 20 mg PO Q48H #15 tab 11/18/22 [Rx] Loperamide [Imodium] 2 mg PO QID PRN cap 11/18/22 [Rx] Follow up Appointment(s)/Referral(s): [facility] [NON-STAFF] - As Needed (M-W-F AT 1300) None,Stated [REFERRING] - 1-2 days [facility] [NON-STAFF] - 1 Week Monalisa Dominguez MD [STAFF PHYSICIAN] - 1 Week Eulalio Danielson DO [STAFF PHYSICIAN] - 1 Week Joe Solorzano DO [Primary Care Provider] - 1-2 Days Ambulatory/Diagnostic Orders: Basic Metabolic Panel [LAB.AMB] Location: None Selected Complete Blood Count w/diff [LAB.AMB] Time Frame: 3 Days, Location: None Selected Patient Instructions/Handouts: Urinary Tract Infection in Women (DC) Activity/Diet/Wound Care/Special Instructions: Continue on questran and imodium as needed for the diarrhea No further antibiotic therapy needed on discharge Continue with same MWF hemodialysis schedule per usual Follow up with nephrology and oncology on discharge Continue with diflucan at home as usual Repeat labs in 2 to 3 days Discharge Disposition: HOME WITH HOME HEALTH SERVICES
[2022-11-20] MEDS ORDERED: FAMOTIDINE 20 MG TAB PO SCH (09:00)
== END 2022-11-18 18:32 | disposition home health service (06) ==
LOC: EC 00:14 → 6NMEDSUR 05:36
PROVIDERS: ADMIT Hospitalist; ATTEND Hospitalist
DX: A41.9 Sepsis, unspecified organism (principal); N39.0 Urinary tract infection, site not specified; D47.2 Monoclonal gammopathy; I12.0 Hypertensive chronic kidney disease with stage 5 chronic kidney disease or end stage renal disease; N18.6 End stage renal disease; Z99.2 Dependence on renal dialysis; D61.810 Antineoplastic chemotherapy induced pancytopenia; K52.1 Toxic gastroenteritis and colitis; T45.1X5A Adverse effect of antineoplastic and immunosuppressive drugs, initial encounter; E83.42 Hypomagnesemia; E86.0 Dehydration; E78.00 Pure hypercholesterolemia, unspecified; K21.9 Gastro-esophageal reflux disease without esophagitis; H35.342 Macular cyst, hole, or pseudohole, left eye; M19.90 Unspecified osteoarthritis, unspecified site; E03.9 Hypothyroidism, unspecified; I73.9 Peripheral vascular disease, unspecified; K14.0 Glossitis; B37.0 Candidal stomatitis; E66.9 Obesity, unspecified; Z68.30 Body mass index [BMI] 30.0-30.9, adult; M48.00 Spinal stenosis, site unspecified; F32.A Depression, unspecified; F41.9 Anxiety disorder, unspecified; R45.1 Restlessness and agitation; Z79.890 Hormone replacement therapy; Z79.52 Long term (current) use of systemic steroids; Z79.899 Other long term (current) drug therapy; Z88.1 Allergy status to other antibiotic agents; Z88.5 Allergy status to narcotic agent; Z87.891 Personal history of nicotine dependence; Z85.43 Personal history of malignant neoplasm of ovary; Z90.49 Acquired absence of other specified parts of digestive tract; Z90.710 Acquired absence of both cervix and uterus; Z16.24 Resistance to multiple antibiotics; Z87.19 Personal history of other diseases of the digestive system; Z98.890 Other specified postprocedural states; Z82.49 Family history of ischemic heart disease and other diseases of the circulatory system; Z80.6 Family history of leukemia; Z80.7 Family history of other malignant neoplasms of lymphoid, hematopoietic and related tissues
CPT/HCPCS: 96365; 96366 ×2; 99285; 36415; 93005; 97162; 97166; 84439; 83880; 80053 ×2; 80048; 83605; 83735 ×2; 84100; 84443; 84484; 85025 ×2; 85610; 85730; 81001; 87040; 87324; 87086; 87077; 87186; 87636; 71046; 70450; G0257 ×2; G0378 ×3; J0696 ×3; J0131; 90935

== ENCOUNTER 2022-11-16 00:14 | Emergency (ER) | payer MEDICARE ==
[2022-11-16] MEDS ORDERED: SODIUM CHLORIDE 0.9% 1,000 ML IV STA (00:36)
[2022-11-16] MEDS ORDERED: ACETAMINOPHEN IV (For NPO) 1,000 MG in EMPTY BAG 1 BAG IVPB STA (00:36)
[2022-11-16] MEDS ORDERED: IBUPROFEN IV 800 MG in SODIUM CHLORIDE 0.9% 250 ML IV ONE (00:36)
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
[2022-11-16 01:52] LABS: Anisocytosis Slight; Basophils % (A) 0 %; Eosinophils # (A) 0.1 k/uL (0-0.7); Eosinophils % (A) 1 %; HCT 28.3 % (34.0-46.0); HGB 9.4 gm/dL (11.4-16.0); Lymphocytes # (A) 0.6 k/uL (1.0-4.8); Lymphocytes % (A) 7 %; MCH 33.1 pg (25.0-35.0); MCHC 33.1 g/dL (31.0-37.0); MCV 100.1 fL (80.0-100.0); Macrocytosis Slight; Mean Platelet Volume 8.6; Monocytes # (A) 0.4 k/uL (0-1.0); Monocytes % (A) 4 %; Neutrophils # (A) 7.3 k/uL (1.3-7.7); Neutrophils % (A) 87 %; Platelet Count 123 k/uL (150-450); RBC 2.83 m/uL (3.80-5.40); RDW 16.3 % (11.5-15.5); WBC 8.4 k/uL (3.8-10.6)
[2022-11-16 01:58] LABS: Partial Thromboplastin Time 22.7 sec (22.0-30.0); Prothrombin Time 10.7 sec (9.0-12.0)
[2022-11-16 02:08] VITALS: TEMP 98.9
[2022-11-16 02:20] LABS: ALT 23 U/L (4-34); AST 35 U/L (14-36); African American GFR (CKD) 21 (>60 ml/min/1.73 sqM); Albumin 2.9 g/dL (3.5-5.0); Alkaline Phosphatase 71 U/L (38-126); Anion Gap 6 mmol/L; Blood Urea Nitrogen 17 mg/dL (7-17); Calcium 7.7 mg/dL (8.4-10.2); Carbon Dioxide 30 mmol/L (22-30); Chloride 95 mmol/L (98-107); Glucose 84 mg/dL (74-99); Magnesium 1.5 mg/dL (1.6-2.3); Non-African American GFR(CKD) 19 (>60 ml/min/1.73 sqM); Phosphorus 2.3 mg/dL (2.5-4.5); Potassium 3.5 mmol/L (3.5-5.1); Sodium 131 mmol/L (137-145); Total Bilirubin 0.5 mg/dL (0.2-1.3)
--- NOTE | 2022-11-16 02:47 | CT ---
EXAMINATION TYPE: CT brain wo con DATE OF EXAM: 11/16/2022 COMPARISON: None HISTORY: Altered mental status Unenhanced CT of the brain was performed. The ventricles, basal cisterns and sulci overlying the cerebral convexities demonstrate mild enlargem ent. There is no evidence for intracranial hemorrhage or sulcal effacement. There is decreased attenuation about the periventricular white matter and deep white matter of both c erebral hemispheres, compatible with chronic small vessel ischemia. Differential diagnosis does inclu de demyelination. No mass effects are seen.No midline shift. Osseous calvarium is intact. Right maxillary chronic sinusitis. If symptoms persist consider MRI. IMPRESSION: 1. Age related atrophic and chronic small vessel ischemic change without acute intracranial process s een at this time.
--- NOTE | 2022-11-16 02:48 | XR ---
EXAMINATION TYPE: XR chest 2V DATE OF EXAM: 11/16/2022 COMPARISON: 07/26/2017 HISTORY: Shortness of breath TECHNIQUE: Frontal and lateral views of the chest are obtained. FINDINGS: Scattered senescent parenchymal changes noted. Hyperinflation compatible with COPD. No evidence for infiltrate. No evidence for atelectasis. Large bore central venous line with its dist al tip overlying the SVC/right atrial region. Heart size is stable. Mediastinal structures are stable and grossly unremarkable. No evidence for hilar prominence. Degenerative changes dorsal spine. IMPRESSION: 1. No evidence for acute pulmonary disease.
[2022-11-16 02:53] LABS: Appearance,Urine Cloudy (Clear); Bacteria,Urine Moderate /hpf; Bilirubin,Urine Negative (Negative); Blood,Urine Negative (Negative); Color,Urine Yellow; Glucose,Urine (UA) Trace (Negative); Hyaline Casts,Urine 5 /lpf (0-2); Ketones,Urine Negative (Negative); Leukocyte Esterase,Urine Large (Negative); Nitrite,Urine Negative (Negative); PH, Urine 8.5 (5.0-8.0); Protein,Urine 3+ (Negative); RBC,Urine 5 /hpf (0-5); Squamous Epithelial Cell,Urine 1 /hpf (0-4); Urobilinogen,Urine <2.0 mg/dL (<2.0); WBC,Urine >182 /hpf (0-5)
[2022-11-16 03:17] VITALS: BP 123/84; PULSE 73; RESP 20
== END 2022-11-17 02:23 | disposition other institution (70) ==
LOC: EDUNIT# → EC 00:14
DX: R41.82 Altered mental status, unspecified (principal); N39.0 Urinary tract infection, site not specified; N17.9 Acute kidney failure, unspecified; I12.9 Hypertensive chronic kidney disease with stage 1 through stage 4 chronic kidney disease, or unspecified chronic kidney disease; N18.9 Chronic kidney disease, unspecified; E78.5 Hyperlipidemia, unspecified; Z87.891 Personal history of nicotine dependence; Z88.1 Allergy status to other antibiotic agents; Z88.5 Allergy status to narcotic agent; Z79.899 Other long term (current) drug therapy; Z20.822 Contact with and (suspected) exposure to COVID-19
CPT/HCPCS: 36415; 80053; 81001; 83605; 83735; 83880; 84100; 84443; 84484; 85025; 85610; 85730; 87040; 87636; 93005; 96361; 96374; 99285

== ENCOUNTER → 2023-02-28 | Outpatient (CLI) | payer MEDICARE ==
[2023-02-28 13:35] LABS: Partial Thromboplastin Time 24.1 sec (22.0-30.0); Prothrombin Time 10.4 sec (9.0-12.0)
[2023-02-28 20:00] LABS: HCT 38.4 % (37.2-46.3); HGB 12.4 d/dL (12.0-15.0); MCH 33.9 pg (27.0-32.0); MCHC 32.3 d/dL (32.0-37.0); MCV 104.9 FL (80.0-97.0); Mean Platelet Volume 9.9 FL (9.5-12.2); NRBC Per 100 WBC 0 X 10*3/uL (0.00-0.01); Platelet Count 296 X 10*3/uL (140-440); RBC 3.66 X 10*6/uL (4.10-5.20); RDW 12.8 % (11.5-14.5); WBC 10.43 X 10*3/uL (4.50-10.00)
[2023-02-28 20:01] LABS: Basophils # (A) 0.06 X 10*3/uL (0.00-0.10); Basophils % (A) 0.6 %; Eosinophils # (A) 0.17 X 10*3/uL (0.04-0.35); Eosinophils % (A) 1.6 %; Lymphocytes # (A) 2.56 X 10*3/uL (0.90-5.00); Lymphocytes % (A) 24.5 %; Monocytes # (A) 0.72 X 10*3/uL (0.20-1.00); Monocytes % (A) 6.9 %; Neutrophils # (A) 6.82 X 10*3/uL (1.80-7.70); Neutrophils % (A) 65.4 %
[2023-02-28 22:36] LABS: Blood Urea Nitrogen 22.8 mg/dL (9.0-27.0); Carbon Dioxide 29.1 mmol/L (21.6-31.8); Chloride 95 mmol/L (96-109); Sodium 139 mmol/L (135-145)
== END | disposition home or self-care (01) ==
LOC: LABWHC1 12:10
PROVIDERS: ATTEND Internal Medicine
DX: D47.2 Monoclonal gammopathy (principal)
CPT/HCPCS: 36415; 80051; 82565; 84520; 85025; 85610; 85730; 86850; 86900; 86901

== ENCOUNTER 2023-09-13 10:58 | Day surgery (SDC) | payer MEDICARE ==
[~2023-09-13 10:58] MED LIST: LIDOCAINE 1% (10MG/ML) FOR IV START INTRADERMA PRN; droPERidol 5 MG/2 ML VIAL IVP ONE; fentaNYL (PF) 50 MCG/ML 2 ML AMP IV PRN
[2023-09-13] MEDS: LACTATED RINGERS 1,000 ML IV SCH (11:31)
[2023-09-13 11:44] VITALS: TEMP 97.1
[2023-09-13 12:01] LABS: Glucose,Whole Blood 97 mg/dL (70-110)
[2023-09-13] MEDS: DEXAMETHASONE SOD PHOSPHATE 4 MG/ML 1 ML VIAL IV ONE (12:13)
[2023-09-13] MEDS: ONDANSETRON 4 MG/2 ML VIAL IVP ONE (12:13)
[2023-09-13 12:45] LABS: African American GFR (CKD) 10 (>60 ml/min/1.73 sqM); Anion Gap 13 mmol/L; Blood Urea Nitrogen 49 mg/dL (7-17); Calcium 9.7 mg/dL (8.4-10.2); Carbon Dioxide 21 mmol/L (22-30); Chloride 102 mmol/L (98-107); Glucose 105 mg/dL (74-99); Non-African American GFR(CKD) 8 (>60 ml/min/1.73 sqM); Potassium 4.8 mmol/L (3.5-5.1); Sodium 136 mmol/L (137-145)
[2023-09-13] MEDS: MIDAZOLAM 2 MG/2 ML VIAL IVP ONE (12:53)
[2023-09-13 13:09] LABS: Basophils # (A) 0.1 k/uL (0-0.2); Basophils % (A) 1 %; Eosinophils # (A) 0.2 k/uL (0-0.7); Eosinophils % (A) 3 %; HGB 13.5 gm/dL (11.4-16.0); Lymphocytes # (A) 2.4 k/uL (1.0-4.8); Lymphocytes % (A) 25 %; MCH 33.6 pg (25.0-35.0); MCHC 34.5 g/dL (31.0-37.0); MCV 97.3 fL (80.0-100.0); Mean Platelet Volume 8.3; Monocytes # (A) 0.5 k/uL (0-1.0); Monocytes % (A) 5 %; Neutrophils # (A) 6.3 k/uL (1.3-7.7); Neutrophils % (A) 65 %; Platelet Count 238 k/uL (150-450); RBC 4.01 m/uL (3.80-5.40); RDW 13.5 % (11.5-15.5); WBC 9.6 k/uL (3.8-10.6)
--- NOTE | 2023-09-13 13:12 | P.ANPRN ---
Procedure Note - Anesthesia - Nerve Block Performed Left Supraclavicular Single Time Out Performed: Yes Date of Procedure: 09/13/23 Procedure Start Time: 12:53 Procedure Stop Time: 12:58 Location of Patient: PreOp Indication: Acute Post-Operative Pain, Analgesia, Requested by Surgeon Sedation Type: Sedate with meaningful contact maintained Preparation: Sterile Prep Position: Sitting Catheter: None Needle Types: Pajunk Needle Gauge: 21 Ultrasound used to visualize needle placement: Yes Ultrasound used to observe medication spread: Yes Injectate: 0.5% Ropivacaine (see comment for volume) (Ropiv20 ml+decadron 4mg) Blood Aspirated: No Pain Paresthesia on Injection Noted: No Resistance on Injection: Normal Image Stored and Saved: Yes Events: Uneventful and Well Tolerated
[2023-09-13] MEDS: SODIUM CHLORIDE 0.9% 500 ML 500 ML IV ONE (13:15)
[2023-09-13] MEDS ORDERED: DEXAMETHASONE SOD PHOSPHATE 4 MG/ML 1 ML VIAL ONE (13:18)
[2023-09-13] MEDS ORDERED: ROPIVACAINE 5 MG/ML 30 ML VIAL ONE (13:18)
[2023-09-13] MEDS ORDERED: ePHEDrine 50 MG/ML 1 ML VIAL ONE (13:18)
[2023-09-13] MEDS ORDERED: GLYCOPYRROLATE 0.2 MG/ML 2 ML VIAL ONE (13:18)
[2023-09-13] MEDS ORDERED: PROPOFOL 10 MG/ML 20 ML VIAL IV ONE (13:18)
[2023-09-13] MEDS ORDERED: HEPARIN SODIUM,PORCINE 5,000 UNIT/ML 1 ML VIAL ONE (13:18)
[2023-09-13] MEDS ORDERED: PHENYLEPHRINE-0.9% NACL SYG 1,000 MCG/10 ML SYRINGE ONE (13:18)
[2023-09-13] MEDS ORDERED: KETAMINE HCL IN 0.9 % NACL 50 MG/5 ML SYRINGE ONE (13:18)
[2023-09-13] MEDS ORDERED: fentaNYL (PF) 50 MCG/ML 2 ML AMP ONE (13:18)
[2023-09-13] MEDS: HEPARIN SODIUM,PORCINE (1 ML) 2,000 UNIT in SODIUM CHLORIDE 0.9% 500 ML 500 ML IRRIGATION ONE (13:46)
[2023-09-13] MEDS: ceFAZolin 2 GM in SODIUM CHLORIDE 0.9% 500 ML 500 ML IRRIGATION ONE (13:47)
[2023-09-13 15:29] VITALS: BP 144/66; PULSE 76; RESP 16
--- NOTE | 2023-09-13 15:30 | P.OP ---
Date of Procedure: 09/13/23 Preoperative Diagnosis: ESRD Postoperative Diagnosis: same Procedure(s) Performed: Left upper extremity radial cephalic fistula creation Anesthesia: regional Surgeon: Joselito Glass Estimated Blood Loss (ml): 5 Pathology: none sent Condition: stable Disposition: PACU Indications for Procedure: 78 year old female with history of ESRD on HD presents for left upper extremity fistula creation Description of Procedure: After written and informed consent was obtained from the patient the patient was brought to the operative suite and laid in a supine position. The left arm was prepped and draped in the usual sterile fashion after appropriate anesthesia was performed per the anesthesiologist. Utilizing ultrasound the cephalic vein was visualized and marked and shown to be good size. A small vertical incision was then created with a 15 blade scalpel just proximal to the wrist and dissection was carried down to the radial artery which was dissected free in a circumferential manner. Proximal distal control was then obtained with vessel loops. Attention was then placed back to the cephalic vein which was located and dissected free in a circumferential manner distally to the wrist. At the wrist it was ligated with silk suture. Further dissection was carried around the vein and the vein was brought over to the radial artery. Serial dilation was then performed on the vein and good backbleeding was noted. Patient was administered 3000 units of heparin and the radial artery was clamped at the proximal and distal aspect. Utilizing 11 blade scalpel and arteriotomy was created and extended with Pott Dangelo scissors. There was good brisk backbleeding noted from the radial artery and pulsatile blood flow visualized from the proximal aspect. The vein was then spatulated and an end-to-side anastomosis was created with a 7-0 Prolene suture. Prior to last sutures being placed the control was released from the vein revealing good backbleeding and distal control on the radial artery was released revealing good back flow. The proximal control was then released and good pulsatile blood flow was visualized in the fistula and final sutures were secured. The area was copiously irrigated with antibiotic solution. Hemostasis was assured. The vessels were then interrogated with Doppler which demonstrated good multiphasic signal distal to the anastomosis as well as positive bruit within the vein consistent with good fistula creation. Under ultrasound there was pulsatile flow noted in the cephalic vein. The incision was then closed in a multilayer fashion. The skin was cleansed and dressings were placed. Patient does procedure well and was sent to PACU for recovery. Plan - Discharge Summary Discharge Rx Participant: No New Discharge Prescriptions: No Action amLODIPine BESYLATE 5 mg PO DAILY Magnesium Chloride [Mag64] 64 mg PO HS ALPRAZolam [Xanax] 0.375 mg PO DAILY PRN PRN Reason: Anxiety Metoprolol Succinate (ER) [Toprol XL] 50 mg PO 1600 Cholecalciferol (Vitamin D3) [Vitamin D3 (125 MCG = 5,000 IU)] 125 mcg PO DAILY Ondansetron [Zofran] 4 mg PO Q8HR PRN #30 tab PRN Reason: Nausea buPROPion XL [Wellbutrin XL] 300 mg PO DAILY Ipratropium/Albuter 20-100Mcg [Combivent Respimat 20-100Mcg Inhaler] 1 puff INHALATION RT-TID PRN PRN Reason: Shortness Of Breath Loperamide [Imodium] 2 mg PO QID PRN cap PRN Reason: Diarrhea Levothyroxine Sodium [Synthroid] 112 mcg PO DAILY #30 tab Vitamin B Complex 1 each PO DAILY Ascorbic Acid [Vitamin C] 500 mg PO DAILY Discharge Medication List amLODIPine BESYLATE 5 mg PO DAILY 05/13/18 [History] ALPRAZolam [Xanax] 0.375 mg PO DAILY PRN 10/12/21 [History] Magnesium Chloride [Mag64] 64 mg PO HS 10/12/21 [History] Ondansetron [Zofran] 4 mg PO Q8HR PRN #30 tab 07/22/22 [Rx] Metoprolol Succinate (ER) [Toprol XL] 50 mg PO 1600 10/22/22 [History] Ipratropium/Albuter 20-100Mcg [Combivent Respimat 20-100Mcg Inhaler] 1 puff INHALATION RT-TID PRN 11/16/22 [History] buPROPion XL [Wellbutrin XL] 300 mg PO DAILY 11/16/22 [History] Loperamide [Imodium] 2 mg PO QID PRN cap 11/18/22 [Rx] Levothyroxine Sodium [Synthroid] 112 mcg PO DAILY #30 tab 11/19/22 [Rx] Ascorbic Acid [Vitamin C] 500 mg PO DAILY 02/22/23 [History] Cholecalciferol (Vitamin D3) [Vitamin D3 (125 MCG = 5,000 IU)] 125 mcg PO DAILY 02/22/23 [History] Vitamin B Complex 1 each PO DAILY 02/22/23 [History] Follow up Appointment(s)/Referral(s): Joselito Glass DO [STAFF PHYSICIAN] - 2 Weeks Patient Instructions/Handouts: *Surgery [facility] - (Anesthesia) Discharge Instructions Outpatient Surgery, Arteriovenous Graft Creation for Hemodialysis (DC) Discharge Disposition: HOME SELF-CARE
== END 2023-09-13 15:44 | disposition home or self-care (01) ==
LOC: OR 10:58
PROVIDERS: ATTEND Surgery
DX: I12.0 Hypertensive chronic kidney disease with stage 5 chronic kidney disease or end stage renal disease (principal); E11.22 Type 2 diabetes mellitus with diabetic chronic kidney disease; N18.6 End stage renal disease; G89.18 Other acute postprocedural pain; E11.51 Type 2 diabetes mellitus with diabetic peripheral angiopathy without gangrene; J45.909 Unspecified asthma, uncomplicated; M19.90 Unspecified osteoarthritis, unspecified site; K21.9 Gastro-esophageal reflux disease without esophagitis; Z85.43 Personal history of malignant neoplasm of ovary; Z79.899 Other long term (current) drug therapy; Z99.2 Dependence on renal dialysis; Z88.1 Allergy status to other antibiotic agents; Z88.8 Allergy status to other drugs, medicaments and biological substances
CPT/HCPCS: 36821; 64415; 80048; 85025; J2250; J1644; J1100; J0690; J2405; J3010; J2795; J2704; J2371